=== PATIENT | female | born 1940 | race African-American/Black ===

== ENCOUNTER 2017-02-24 14:26 | Emergency (ER) | payer MEDICARE, OTHER ==
[~2017-02-24] VITALS: Ht 163.8 cm; Wt 77.1 kg
[~2017-02-24 14:26] MED LIST: AMLO5TAB2 PO; DONE10TA7 PO; LISI40TA PO
[2017-02-24] MEDS ORDERED: IV NORMAL SALINE 1000ML BAG 1,000 ML IV ONE (16:00)
[2017-02-24] MEDS ORDERED: ACETAMINOPHEN 325 MG TABLET. PO ONE (16:00)
[2017-02-24] MEDS ORDERED: IPRATRPIUM/ALBUTEROL 0.5/2.5MG 3 ML NEBU. NEB ONE (16:00)
--- NOTE | 2017-02-24 16:03 | RAD ---
Portable chest, 02/24/2017: History: Cough, shortness of breath Comparison is made to a study from 05/09/2014. The heart size and pulmonary vascularity are normal. No pulmonary infiltrates are seen. There is no evidence of pleural fluid. Moderate spurring is present in the spine. IMPRESSION: No acute cardiopulmonary abnormality is detected.
--- NOTE | 2017-02-24 16:12 | EKG ---
[facility] [address] [place] [address] Test Date: 2017-02-24 Test Time: 16:02:45 Pat Name: MARTHA DOUGLAS Department: Room: Gender: F Technology Trainer: : 1940 Requested By: EDUIN POSADA Order Number: [id number] Reading MD: Dyana Benedict Measurements Intervals [place] Rate: 107 P: 60 AR: 146 QRS: -6 QRSD: 74 T: 81 QT: 302 QTc: 408 Interpretive Statements SINUS TACHYCARDIA LEFTWARD AXIS QRS(T) CONTOUR ABNORMALITY CONSIDER ANTEROSEPTAL MYOCARDIAL DAMAGE ST & T ABNORMALITY, CONSIDER HIGH LATERAL ISCHEMIA OR LEFT VENTRICULAR STRAIN Electronically Signed On 02-24-2017 20:06:36 CDT by Dyana Benedict
[2017-02-24 16:51] LABS: BASO % 1 % (0-3); EOS % 0 % (0-3); HEMATOCRIT 31.9 % (36.0-47.0); HEMOGLOBIN 10.3 g/dL (12.0-15.5); LYMPH # 1.4 x10^3/uL (1.0-4.8); LYMPH % 19 % (24-48); MEAN CORPUSCULAR HEMOGLOBIN 25 pg (25-35); MEAN CORPUSCULAR HGB CONC 32 g/dL (31-37); MEAN CORPUSCULAR VOLUME 77 fL (79-100); MONO % 12 % (0-9); NEUT % 69 % (31-73); PLATELET COUNT 335 x10^3/uL (140-400); RED BLOOD COUNT 4.15 x10^6/uL (3.50-5.40); RED CELL DISTRIBUTION WIDTH 14.9 % (11.5-14.5); WHITE BLOOD COUNT 7.7 x10^3/uL (4.0-11.0)
[2017-02-24 17:12] LABS: OBC FLU VALID
[2017-02-24 17:23] LABS: CALCIUM 9.2 mg/dL (8.5-10.1); CREATININE 1.4 mg/dL (0.6-1.0); GFR 44.2; POTASSIUM 3.5 mmol/L (3.5-5.1)
[2017-02-24] MEDS ORDERED: BENZ100C PO (17:47)
[2017-02-24] MEDS ORDERED: PROAIR HFA8.5 GM INH (17:47)
--- NOTE | 2017-02-24 17:47 | PHYS DOC ---
Past Medical History Past Medical History: Diabetes-Type II, Hypertension Past Surgical History: Hysterectomy, Other Additional Past Surgical Histo: cataracts Alcohol Use: None Drug Use: None Adult General Chief Complaint Chief Complaint: COUGH HPI HPI This is a 76-year-old female who presents with cough for the last couple days. The daughter at bedside is concerned that she could be mildly dehydrated based on her skin tone. Patient has had a harsh cough for the last couple days with some mild wheezing. Daughter has been trying [id number] medications without relief. Upon my initial assessment, the patient is able to speak in complete sentences and is in no distress whatsoever. Patient did not cough while I was in the room. The daughter states her blood glucose levels were slightly elevated earlier today in the 300 range and this was also a concern. She does not believe she is doing an adequate job with fluid hydration at home. Review of Systems Review of Systems Constitutional: Denies fever or chills [] Eyes: Denies change in visual acuity, redness, or eye pain [] HENT: Denies nasal congestion or sore throat [] Respiratory: Has cough, denies shortness of breath [] Cardiovascular: No additional information not addressed in HPI [] GI: Denies abdominal pain, nausea, vomiting, bloody stools or diarrhea [] : Denies dysuria or hematuria [] Musculoskeletal: Denies back pain or joint pain [] Integument: Denies rash or skin lesions [] Neurologic: Denies headache, focal weakness or sensory changes [] Endocrine: Denies polyuria or polydipsia [] Current Medications Current Medications Current Medications Medications (Trade) Dose Ordered Sig/[facility] Start Time Stop Time Status Last Admin Dose Admin Acetaminophen (Tylenol) 650 mg 1X ONCE 02/24/17 16:00 02/24/17 16:01 DC 02/24/17 16:42 650 MG Albuterol/ Ipratropium 3 ml 3 ml 1X ONCE 02/24/17 16:00 02/24/17 16:01 DC 02/24/17 17:20 3 ML Sodium Chloride (Iv Sodium Chloride 0.9% 1000ml Bag) 1,000 ml @ 1,000 mls/hr 1X ONCE 02/24/17 16:00 02/24/17 16:59 DC 02/24/17 16:14 1,000 MLS/HR Allergies Allergies Allergies Coded Allergies Type Severity Reaction Last Updated Verified No Known Drug Allergies 05/09/14 No Physical Exam Physical Exam Constitutional: Well developed, well nourished, no acute distress, non-toxic appearance. [] HENT: Normocephalic, atraumatic, bilateral external ears normal, oropharynx moist, no oral exudates, nose normal. [] Eyes: PERRLA, EOMI, conjunctiva normal, no discharge. [] Neck: Normal range of motion, no tenderness, supple, no stridor. [] Cardiovascular:Heart rate regular rhythm, no murmur [] Lungs & Thorax: Bilateral breath sounds clear to auscultation [] Abdomen: Bowel sounds normal, soft, no tenderness, no masses, no pulsatile masses. [] Skin: Warm, dry, no erythema, no rash. [] Back: No tenderness, no CVA tenderness. [] Extremities: No tenderness, no cyanosis, no clubbing, ROM intact, no edema. [] Neurologic: Alert and oriented X 3, normal motor function, normal sensory function, no focal deficits noted. [] Psychologic: Affect normal, judgement normal, mood normal. [] Current Patient Data Vital Signs Vital Signs Date Time Temp Pulse Resp B/P Pulse Ox O2 Delivery O2 Flow Rate FiO2 02/24/17 17:20 98 Room Air 02/24/17 16:47 100.4 99 22 175/79 100.4 Lab Values Laboratory Tests Test 02/24/17 16:28 02/24/17 16:40 Influenza Type A Antigen Negative (NEGATIVE) Influenza Type B Antigen Negative (NEGATIVE) White Blood Count 7.7x10^3/uL (4.0-11.0) Red Blood Count 4.15x10^6/uL (3.50-5.40) Hemoglobin 10.3g/dL (12.0-15.5) L Hematocrit 31.9% (36.0-47.0) L Mean Corpuscular Volume 77fL (79-100) L Mean Corpuscular Hemoglobin 25pg (25-35) Mean Corpuscular Hemoglobin Concent 32g/dL (31-37) Red Cell Distribution Width 14.9% (11.5-14.5) H Platelet Count 335x10^3/uL (140-400) Neutrophils (%) (Auto) 69% (31-73) Lymphocytes (%) (Auto) 19% (24-48) L Monocytes (%) (Auto) 12% (0-9) H Eosinophils (%) (Auto) 0% (0-3) Basophils (%) (Auto) 1% (0-3) Neutrophils # (Auto) 5.3x10^3uL (1.8-7.7) Lymphocytes # (Auto) 1.4x10^3/uL (1.0-4.8) Monocytes # (Auto) 0.9x10^3/uL (0.0-1.1) Eosinophils # (Auto) 0.0x10^3/uL (0.0-0.7) Basophils # (Auto) 0.0x10^3/uL (0.0-0.2) Sodium Level 139mmol/L (136-145) Potassium Level 3.5mmol/L (3.5-5.1) Chloride Level 102mmol/L (98-107) Carbon Dioxide Level 27mmol/L (21-32) Anion Gap 10 (6-14) Blood Urea Nitrogen 17mg/dL (7-20) Creatinine 1.4mg/dL (0.6-1.0) H Estimated GFR (Cockcroft-Gault) 44.2 Glucose Level 123mg/dL (70-99) H Calcium Level 9.2mg/dL (8.5-10.1) Laboratory Tests 02/24/17 16:40 Laboratory Tests 02/24/17 16:40 EKG EKG EKG as interpreted by me shows a tachycardia with a rate of 107 bpm. There are no acute ST findings. There is a leftward axis. This EKG does not meet STEMI criteria. Radiology/Procedures Radiology/Procedures One view of the chest does not reveal an acute cardiopulmonary abnormality. This is as interpreted by the radiologist. Course & Med Decision Making Course & Med Decision Making Pertinent Labs and Imaging studies reviewed. (See chart for details) This 76-year-old female has a workup that is essentially unremarkable. Her blood glucose is not abnormally elevated. Patient was given a half liter of normal saline. Her chest x-ray and EKG were essentially unremarkable. Her tachycardia resolved with fluid bolus. She was also given a DuoNeb treatment. I' ll be discharging her home with a course of Tessalon Perles with albuterol inhaler. The daughter states she'll have her reevaluated by her primary care doctor tomorrow. I also counseled the patient at length that she is to continue to drink plenty of fluids which she admits she is not doing an adequate job. [place] Disclaimer Dragon Disclaimer This electronic medical record was generated, in whole or in part, using a voice recognition dictation system. Departure Departure Impression: Primary Impression: Cough Additional Impression: Bronchitis Disposition: 01 HOME, SELF-CARE Admitting Physician: Other Condition: STABLE Referrals: JOSE ROSS (PCP) Patient Instructions: Cough, Adult, [id number] Additional Instructions: Please continue to use your inhaler and use your tessalon perles as prescribed. Follow up closely with your primary doctor in the next 2-3 days for your cough and congestion. Return to the ER if you develop any worsening of your breathing or develop any chest pain. Scripts Benzonatate (Tessalon Perle)100 Mg [id number] Mg PO TID PRN COUGH #15 CAP Prov:EDUIN POSADA DO 02/24/17 Albuterol Sulfate (Proair Hfa Inhaler)8.5 Gm Hfa.aer.ad1 Puff INH PRN Q6HRS PRN SHORTNESS OF BREATH #1 INHALER Ref 0 Prov:EDUIN POSADA DO 02/24/17 Problem Qualifiers EDUIN POSADA DO Feb 24, 2017 17:47
[2017-02-24 18:19] VITALS: BP 134/70
== END 2017-02-24 18:21 | disposition home or self-care (01) ==
LOC: ER 14:26
DX: J40 Bronchitis, not specified as acute or chronic (principal); I10 Essential (primary) hypertension; E11.9 Type 2 diabetes mellitus without complications; Z90.710 Acquired absence of both cervix and uterus
CPT/HCPCS: 36415; 71010; 80048; 85027; 87804; 93005; 94250; 94640; 96360; 96361; 99285; J7030; J7620

== ENCOUNTER 2018-09-26 06:42 | Emergency (ER) | payer MEDICARE, OTHER ==
[~2018-09-26] VITALS: Ht 162.6 cm; Wt 74.8 kg
[~2018-09-26 06:42] MED LIST changes: +ACET500T68 PO; -AMLO5TAB2 PO; +AMLO5TAB7 PO; +ASPI-482 PO; +ATOR40TA59 PO; +BENZ100C PO; +BENZ200C47 PO; +BRIM5DRO RIGHTEYE; +CLOP75TA57 PO; +DICL100G18 TP; +FAMO1TAB3 PO; +FERR325T14 PO; +INSU100C4 SQ; +INSU100V13 SQ; +LISI-130 PO; +LISI-334 PO; -LISI40TA PO; +OMEP40CA5 PO; +PANT20TA2 PO; +PROAIR HFA8.5 GM INH
[2018-09-26] MEDS ORDERED: IV NORMAL SALINE 1000ML BAG 1,000 ML IV SCH (07:21)
[2018-09-26] MEDS ORDERED: IOHEXOL 300 MG/ML 100ML VIAL. IV ONE (07:30)
[2018-09-26] MEDS ORDERED: ONDANSETRON PF 4 MG/2 ML VIAL. IV PRN (07:30)
[2018-09-26] MEDS ORDERED: methylPREDNISolone SOD SUCC PF 125 MG/2 ML VIAL. IV ONE (07:30)
[2018-09-26] MEDS ORDERED: FAMOTIDINE 20 MG/2 ML VIAL IVP ONE (07:30)
[2018-09-26] MEDS ORDERED: diphenhydrAMINE 50 MG/ML VIAL IVP ONE (07:30)
[2018-09-26 07:41] LABS: BASO # 0.1 x10^3/uL (0.0-0.2); BASO % 1 % (0-3); EOS # 0.2 x10^3/uL (0.0-0.7); EOS % 2 % (0-3); HEMATOCRIT 27.9 % (36.0-47.0); HEMOGLOBIN 9.3 g/dL (12.0-15.5); LYMPH # 1.7 x10^3/uL (1.0-4.8); LYMPH % 18 % (24-48); MEAN CORPUSCULAR HEMOGLOBIN 25 pg (25-35); MEAN CORPUSCULAR HGB CONC 33 g/dL (31-37); MEAN CORPUSCULAR VOLUME 76 fL (79-100); MONO # 0.6 x10^3/uL (0.0-1.1); MONO % 7 % (0-9); NEUT # 6.6 x10^3uL (1.8-7.7); NEUT % 72 % (31-73); PLATELET COUNT 408 x10^3/uL (140-400); RED BLOOD COUNT 3.69 x10^6/uL (3.50-5.40); RED CELL DISTRIBUTION WIDTH 14.8 % (11.5-14.5); WHITE BLOOD COUNT 9.2 x10^3/uL (4.0-11.0)
[2018-09-26 07:44] LABS: CALCIUM 9.2 mg/dL (8.5-10.1); CREATININE 1.5 mg/dL (0.6-1.0); GFR 40.6; POTASSIUM 3.9 mmol/L (3.5-5.1)
[2018-09-26] MEDS ORDERED: CONTRAST GIVEN. MC PRN (07:45)
--- NOTE | 2018-09-26 08:36 | RAD ---
Examination: CT SOFT TISSUE NECK W/CONTRAST History: RIGHT SIDE THROAT SWELLING, DIFFICULT TO SWALLOW. OMNI 300 60ML, REDUCED DOSE
Comparison/Correlation: None Findings: Axial images of the neck were obtained following 60 cc Omnipaque 300 IV. Sagittal and coronal reformatted images were provided. Partially visualized cerebral and cerebellar atrophy noted. Cavernous carotid calcification is notable. Globes and optic nerves are unremarkable. Parotid and submandibular glands are unremarkable. Visualized paranasal sinuses are unremarkable. Mass at the right tonsillar region is present measuring 1.9 cm x 1.5 cm. There are no enlarged cervical lymph nodes. Intimal thickening of the carotid bulb bilaterally is noted with significant calcification involving the left carotid bulb. Mild posterior subluxation of the clivus in relation to the dens is noted. Atlantoaxial joint degenerative remodeling is present. There is marked calcification along the posterior aspect of C4-5 with suspected significant effacement of the spinal cord. Significant spinal canal narrowing at this level is present. Emphysematous involvement of the lung apices noted. Impression: Right tonsillar mass. Correlate with direct visualization. Neoplastic etiology is of concern. Calcification along the posterior margin of the right C4 and C5 vertebral bodies with marked effacement of the thecal sac and likely effacement of the spinal cord as well as the right nerve root. Electronically signed by: Lance Burleson MD (09/26/2018 8:33 AM) [facility]
--- NOTE | 2018-09-26 09:00 | PHYS DOC ---
Past Medical History Past Medical History: Dementia, Diabetes-Type II, High Cholesterol, Hypertension, [place] Past Surgical History: Hysterectomy, Other Additional Past Surgical Histo: cataracts Alcohol Use: None Drug Use: None Adult General Chief Complaint Chief Complaint: DIFFICULTY SWALLOWING HPI HPI Patient is a 78 year old female who presents with difficulty speaking and handling her secretions. Symptoms began last evening and worsened overnight. No acute distress. She does take lisinopril for HTN. No fever or chills. No prior hx of similar symptoms. Patient has not otherwise been ill. She has known hx of DM, HTN, CKD. Review of Systems Review of Systems Constitutional: Denies fever or chills Eyes: Denies change in visual acuity HENT: Denies nasal congestion or sore throat Respiratory: Denies cough or shortness of breath Cardiovascular: No additional information not addressed in HPI GI: Denies abdominal pain, nausea, vomiting : Denies dysuria or hematuria Musculoskeletal: Denies back pain Integument: Denies rash or skin lesions Neurologic: Denies headache Endocrine: Denies polyuria All other systems were reviewed and found to be within normal limits, except as documented in this note. Current Medications Current Medications Current Medications Medications (Trade) Dose Ordered Sig/Cherise Start Time Stop Time Status Last Admin Dose Admin Sodium Chloride 1,000 ml @ 75 mls/hr [id number] 09/26/18 07:21 09/27/18 07:20 09/26/18 07:51 75 MLS/HR Allergies Allergies Allergies Coded Allergies Type Severity Reaction Last Updated Verified Penicillins Allergy Intermediate Rash 02/23/18 Yes Physical Exam Physical Exam Constitutional: Well developed, well nourished, no acute distress, non-toxic appearance HENT: Normocephalic, atraumatic, bilateral external ears normal, oropharynx moist, raspy voice, handling secretions, difficult exam of posterior oral pharynx but some erythema/swelling noted over right more than left, soft tissue edema Eyes: PERRLA, EOMI, conjunctiva normal, no discharge Neck: Normal range of motion, no tenderness, supple, no stridor Cardiovascular:Heart rate regular rhythm, no murmur Lungs & Thorax: Bilateral breath sounds clear to auscultation Abdomen: Bowel sounds normal, soft Skin: Warm, dry, no erythema Extremities: No tenderness, no edema Neurologic: Alert and oriented X 3 Psychologic: Affect normal Current Patient Data Vital Signs Vital Signs Date Time Temp Pulse Resp B/P (MAP) Pulse Ox O2 Delivery O2 Flow Rate FiO2 09/26/18 07:00 98.4 99 12 176/79 (111) 97 Room Air 98.4 Lab Values Laboratory Tests Test 09/26/18 07:25 White Blood Count 9.2 x10^3/uL (4.0-11.0) Red Blood Count 3.69 x10^6/uL (3.50-5.40) Hemoglobin 9.3 g/dL (12.0-15.5) L Hematocrit 27.9 % (36.0-47.0) L Mean Corpuscular Volume 76 fL (79-100) L Mean Corpuscular Hemoglobin 25 pg (25-35) Mean Corpuscular Hemoglobin Concent 33 g/dL (31-37) Red Cell Distribution Width 14.8 % (11.5-14.5) H Platelet Count 408 x10^3/uL (140-400) H Neutrophils (%) (Auto) 72 % (31-73) Lymphocytes (%) (Auto) 18 % (24-48) L Monocytes (%) (Auto) 7 % (0-9) Eosinophils (%) (Auto) 2 % (0-3) Basophils (%) (Auto) 1 % (0-3) Neutrophils # (Auto) 6.6 x10^3uL (1.8-7.7) Lymphocytes # (Auto) 1.7 x10^3/uL (1.0-4.8) Monocytes # (Auto) 0.6 x10^3/uL (0.0-1.1) Eosinophils # (Auto) 0.2 x10^3/uL (0.0-0.7) Basophils # (Auto) 0.1 x10^3/uL (0.0-0.2) Sodium Level 141 mmol/L (136-145) Potassium Level 3.9 mmol/L (3.5-5.1) Chloride Level 103 mmol/L (98-107) Carbon Dioxide Level 26 mmol/L (21-32) Anion Gap 12 (6-14) Blood Urea Nitrogen 22 mg/dL (7-20) H Creatinine 1.5 mg/dL (0.6-1.0) H Estimated GFR (Cockcroft-Gault) 40.6 Glucose Level 217 mg/dL (70-99) H Calcium Level 9.2 mg/dL (8.5-10.1) Laboratory Tests 09/26/18 07:25 Laboratory Tests 09/26/18 07:25 EKG EKG [] Radiology/Procedures Radiology/Procedures Partially visualized cerebral and cerebellar atrophy noted. Cavernous carotid calcification is notable. Globes and optic nerves are unremarkable. Parotid and submandibular glands are unremarkable. Visualized paranasal sinuses are unremarkable. Mass at the right tonsillar region is present measuring 1.9 cm x 1.5 cm. There are no enlarged cervical lymph nodes. Intimal thickening of the carotid bulb bilaterally is noted with significant calcification involving the left carotid bulb. Mild posterior subluxation of the clivus in relation to the dens is noted. Atlantoaxial joint degenerative remodeling is present. There is marked calcification along the posterior aspect of C4-5 with suspected significant effacement of the spinal cord. Significant spinal canal narrowing at this level is present. Emphysematous involvement of the lung apices noted. Impression: Right tonsillar mass. Correlate with direct visualization. Neoplastic etiology is of concern. Calcification along the posterior margin of the right C4 and C5 vertebral bodies with marked effacement of the thecal sac and likely effacement of the spinal cord as well as the right nerve root. Course & Med Decision Making Course & Med Decision Making Pertinent Labs and Imaging studies reviewed. (See chart for details) Patient is seen and examined on arrival to her room. No acute distress and vitals are normal. Exam of posterior oral pharynx is difficult given patient's response to exam. Concern is present for KELLI induced angioedema. No acute distress so no icatibant is ordered. Solumedrol, benadryl, pepcid ordered IV. Will observe closely. CT soft tissue neck ordered. 09:00: CT scan returned with findings concerning for mass in the right peritonsillar mass. Patient continues to have no distress. Neoplasm seems less likely given the acute onset of her symptoms but no definite abscess is seen. Clindamycin ordered. Will discuss with ENT at regarding possible transfer. Creatinine is mildly elevated but review of EMR reveals it to be at baseline. Small IVF bolus ordered. Pt with 97% RA saturation. She was initially given some diphenhydramine in the ER which caused her to be sleepy. While sleeping, SaO2 decreased to low 90's after this so she was placed on 2L per NC, but patient had no oxygen requirement prior to admission. 09:50: Discussed with Dr. Reyes at [facility] who accepts the patient for ER to ER transfer. No ENT available at this facility. Plan of care including transfer is discussed with the patient and her family and they are agreeable. Transfer paperwork completed/signed. Transfer requested from EMS. Patient remains stable with no acute symptoms. Dragon Disclaimer Dragon Disclaimer This electronic medical record was generated, in whole or in part, using a voice recognition dictation system. Departure Departure Referrals: JOSE ROSS (PCP) ADAIR BURKS DO Sep 26, 2018 09:00
[2018-09-26] MEDS ORDERED: IV NORMAL SALINE 500ML BAG 500 ML IV ONE (09:15)
[2018-09-26] MEDS ORDERED: CLINDAMYCIN 600MG PREMIX 50 ML IV ONE (09:15)
[2018-09-26 10:15] VITALS: BP 122/58
== END 2018-09-26 10:31 | disposition short-term general hospital (02) ==
LOC: ER 06:42 → UNDOADMIN 07:25 → 1 WEST ICU 07:25 → ER 10:31
DX: J39.2 Other diseases of pharynx (principal); E11.9 Type 2 diabetes mellitus without complications; E78.00 Pure hypercholesterolemia, unspecified; I10 Essential (primary) hypertension; F03.90 Unspecified dementia, unspecified severity, without behavioral disturbance, psychotic disturbance, mood disturbance, and anxiety; I25.2 Old myocardial infarction; Z88.0 Allergy status to penicillin
CPT/HCPCS: 36415; 70491; 80048; 85025; 96361; 96365; 96375; 99285; J1200; J2405; J2930; J3490; J7030; Q9967

== ENCOUNTER 2019-04-08 21:02 | Inpatient (IN) | payer MEDICARE, OTHER ==
[~2019-04-08] VITALS: Ht 165.1 cm; Wt 80.0 kg
[~2019-04-08 21:02] MED LIST changes: +ALBU2.5V8 INH; +AMLO5TAB10 PO; -AMLO5TAB7 PO; -PROAIR HFA8.5 GM INH
[2019-04-08 21:51] LABS: BASO % 1 % (0-3); EOS # 0.1 x10^3/uL (0.0-0.7); EOS % 2 % (0-3); HEMATOCRIT 31.9 % (36.0-47.0); HEMOGLOBIN 10.2 g/dL (12.0-15.5); LYMPH # 2.4 x10^3/uL (1.0-4.8); LYMPH % 44 % (24-48); MEAN CORPUSCULAR HEMOGLOBIN 24 pg (25-35); MEAN CORPUSCULAR HGB CONC 32 g/dL (31-37); MEAN CORPUSCULAR VOLUME 76 fL (79-100); MONO # 0.4 x10^3/uL (0.0-1.1); MONO % 8 % (0-9); NEUT # 2.6 x10^3uL (1.8-7.7); NEUT % 46 % (31-73); PLATELET COUNT 332 x10^3/uL (140-400); RED BLOOD COUNT 4.18 x10^6/uL (3.50-5.40); RED CELL DISTRIBUTION WIDTH 15.9 % (11.5-14.5); WHITE BLOOD COUNT 5.6 x10^3/uL (4.0-11.0)
--- NOTE | 2019-04-08 21:59 | RAD ---
EXAM: Chest, 2 views; left shoulder, 3 views. HISTORY: Pain. COMPARISON: None. FINDINGS: Chest: 2 views of chest are obtained. There is bilateral lower lobe atelectasis or interstitial infiltrate. There is no consolidation, pleural effusion or pneumothorax. There are few calcified granulomas. There is degenerative change involving both shoulders with associated joint loose bodies. Left shoulder: 3 views left shoulder obtained. There is no fracture, dislocation or subluxation. There are inferior left glenohumeral joint loose bodies. IMPRESSION: 1. Suspected bilateral lower lobe atelectasis or interstitial infiltrate. 2. Left glenohumeral joint loose bodies. No acute osseous finding. Electronically signed by: Joi Mccollum MD (04/08/2019 9:57 PM) [facility]
[2019-04-08] MEDS ORDERED: KETOROLAC 15 MG/ML VIAL. IV ONE (22:00)
[2019-04-08] MEDS ORDERED: IV NORMAL SALINE 1000ML BAG 1,000 ML IV ONE (22:00)
[2019-04-08] MEDS ORDERED: ASPIRIN CHEWABLE 81 MG TABLET. PO ONE (22:00)
--- NOTE | 2019-04-08 22:01 | EKG ---
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
[2019-04-08 22:08] LABS: CALCIUM 9.1 mg/dL (8.5-10.1); CREATININE 1.6 mg/dL (0.6-1.0); GFR 37.6
[2019-04-08 22:14] LABS: ALBUMIN 3.3 g/dL (3.4-5.0); ALBUMIN/GLOBULIN RATIO 0.8 (1.0-1.7); MAGNESIUM 1.7 mg/dL (1.8-2.4); TOTAL BILIRUBIN 0.2 mg/dL (0.2-1.0); TOTAL PROTEIN 7.2 g/dL (6.4-8.2)
--- NOTE | 2019-04-08 22:22 | PHYS DOC ---
Past Medical History Past Medical History: CAD, Dementia, Diabetes-Type II, High Cholesterol, Hypertension, NV Past Medical History Limited due to dementia. Past Surgical History: Hysterectomy, Other Additional Past Surgical Histo: cataracts, Cardiac Stents Past Surgical History Limited due to dementia. Additional Information: Nonsmoker Alcohol Use: None Drug Use: None Social History Limited due to dementia. Adult General Chief Complaint Chief Complaint: BACK PAIN - NO INJURY HPI HPI 79 y/o female with pmh of dementia presents with her daughter with concern for back pain with radiation down left arm which has been bothering patient over the last day. Denies nausea or vomiting. Denies diaphoresis. Daughter use an ice hot patch without any improvement. Patient denies current pain. Daughter reports patient has significant cardiac risk factors of prior CAD requiring stents, DM, HTN and hyperchol. Denies trauma. Denies fever/chills. Denies cough. HPI limited due to dementia. Review of Systems Review of Systems Constitutional: Denies fever or chills [] Respiratory: Denies cough or shortness of breath [] Cardiovascular: Denies chest pain GI: Denies abdominal pain, nausea, vomiting, or diarrhea [] Musculoskeletal: Reports back pain and left arm pain Integument: Denies rash or skin lesions [] Neurologic: Denies headache, focal weakness or sensory changes [] ROS limited due to dementia. Current Medications Current Medications Current Medications Medications (Trade) Dose Ordered Sig/Cherise Start Time Stop Time Status Last Admin Dose Admin Aspirin (Children'S Aspirin) 243 mg 1X ONCE 04/08/19 22:00 04/08/19 22:01 DC 04/08/19 22:22 243 MG Ketorolac Tromethamine (Toradol 15mg Vial) 10 mg 1X ONCE 04/08/19 22:00 04/08/19 22:01 DC 04/08/19 22:23 10 MG Sodium Chloride 1,000 ml @ 1,000 mls/hr 1X ONCE 04/08/19 22:00 04/08/19 22:59 DC 04/08/19 22:23 1,000 MLS/HR Allergies Allergies Allergies Coded Allergies Type Severity Reaction Last Updated Verified lisinopril Allergy Severe ANGIOEDEMA 09/26/18 Yes Penicillins Allergy Intermediate Rash 02/23/18 Yes Physical Exam Physical Exam Constitutional: Well developed, well nourished, no acute distress, non-toxic appearance. [] HENT: Normocephalic, atraumatic, oropharynx moist Eyes: Conjunctiva normal, no discharge. [] Neck: Normal range of motion, no tenderness, supple Cardiovascular: Heart rate normal with regular rhythm Lungs & Thorax: Bilateral breath sounds clear to auscultation [] Abdomen: Bowel sounds normal, soft, no tenderness Skin: Warm, dry, no erythema, no rash. [] Back: No midline or paraspinal tenderness, no CVA tenderness. [] Extremities: No tenderness, ROM intact, reports some pain on ROM about left shoulder Neurologic: Alert and oriented X 2, normal motor function, normal sensory function, no focal deficits noted. [] Psychologic: Affect normal, mood normal. [] Current Patient Data Vital Signs Vital Signs Date Time Temp Pulse Resp B/P (MAP) Pulse Ox O2 Delivery O2 Flow Rate FiO2 04/08/19 22:59 73 161/75 (103) 98 Room Air 04/08/19 21:05 98.6 17 98.6 Lab Values Laboratory Tests Test 04/08/19 21:40 04/08/19 22:28 White Blood Count 5.6 x10^3/uL (4.0-11.0) Red Blood Count 4.18 x10^6/uL (3.50-5.40) Hemoglobin 10.2 g/dL (12.0-15.5) L Hematocrit 31.9 % (36.0-47.0) L Mean Corpuscular Volume 76 fL (79-100) L Mean Corpuscular Hemoglobin 24 pg (25-35) L Mean Corpuscular Hemoglobin Concent 32 g/dL (31-37) Red Cell Distribution Width 15.9 % (11.5-14.5) H Platelet Count 332 x10^3/uL (140-400) Neutrophils (%) (Auto) 46 % (31-73) Lymphocytes (%) (Auto) 44 % (24-48) Monocytes (%) (Auto) 8 % (0-9) Eosinophils (%) (Auto) 2 % (0-3) Basophils (%) (Auto) 1 % (0-3) Neutrophils # (Auto) 2.6 x10^3uL (1.8-7.7) Lymphocytes # (Auto) 2.4 x10^3/uL (1.0-4.8) Monocytes # (Auto) 0.4 x10^3/uL (0.0-1.1) Eosinophils # (Auto) 0.1 x10^3/uL (0.0-0.7) Basophils # (Auto) 0.0 x10^3/uL (0.0-0.2) Sodium Level 141 mmol/L (136-145) Potassium Level 4.0 mmol/L (3.5-5.1) Chloride Level 103 mmol/L (98-107) Carbon Dioxide Level 27 mmol/L (21-32) Anion Gap 11 (6-14) Blood Urea Nitrogen 31 mg/dL (7-20) H Creatinine 1.6 mg/dL (0.6-1.0) H Estimated GFR (Cockcroft-Gault) 37.6 BUN/Creatinine Ratio 19 (6-20) Glucose Level 198 mg/dL (70-99) H Calcium Level 9.1 mg/dL (8.5-10.1) Magnesium Level 1.7 mg/dL (1.8-2.4) L Total Bilirubin 0.2 mg/dL (0.2-1.0) Aspartate Amino Transferase (AST) 11 U/L (15-37) L Alanine Aminotransferase (ALT) 14 U/L (14-59) Alkaline Phosphatase 94 U/L (46-116) Creatine Kinase 92 U/L (26-192) Creatine Kinase MB (Mass) 1.4 ng/mL (0.0-3.6) Creatine Kinase MB Relative Index 1.5 % (0-4) Troponin I Quantitative 0.225 ng/mL (0.000-0.055) PC-Cbx-A-Type Natriuretic Peptide 904 pg/mL (0-449) H Total Protein 7.2 g/dL (6.4-8.2) Albumin 3.3 g/dL (3.4-5.0) L Albumin/Globulin Ratio 0.8 (1.0-1.7) L Lipase 84 U/L (73-393) Urine Collection Type Void Urine Color Yellow Urine Clarity Clear Urine pH 5.0 Urine Specific [place] 1.025 Urine Protein 100 mg/dL (NEG-TRACE) Urine Glucose (UA) >=1000 mg/dL (NEG) Urine Ketones (Stick) Negative mg/dL (NEG) Urine Blood Trace (NEG) Urine Nitrite Negative (NEG) Urine Bilirubin Negative (NEG) Urine Urobilinogen Dipstick 0.2 mg/dL (0.2 mg/dL) Urine Leukocyte Esterase Negative (NEG) Urine RBC Rare /HPF (0-2) Urine WBC Occ /HPF (0-4) Urine Squamous Epithelial Cells Many /LPF Urine Bacteria Few /HPF (0-FEW) Urine Mucus Mod /LPF Laboratory Tests 04/08/19 21:40 Laboratory Tests 04/08/19 21:40 EKG EKG @2113 NSR at 78bpm, NO ST elevation Radiology/Procedures Radiology/Procedures [PROCEDURE: SHOULDER 2+V LEFT AND 2 VIEW CXR EXAM: Chest, 2 views; left shoulder, 3 views. HISTORY: Pain. COMPARISON: None. FINDINGS: Chest: 2 views of chest are obtained. There is bilateral lower lobe atelectasis or interstitial infiltrate. There is no consolidation, pleural effusion or pneumothorax. There are few calcified granulomas. There is degenerative change involving both shoulders with associated joint loose bodies. Left shoulder: 3 views left shoulder obtained. There is no fracture, dislocation or subluxation. There are inferior left glenohumeral joint loose bodies. IMPRESSION: 1. Suspected bilateral lower lobe atelectasis or interstitial infiltrate. 2. Left glenohumeral joint loose bodies. No acute osseous finding. Electronically signed by: Joi Mccollum MD (04/08/2019 9:57 PM) [facility] Course & Med Decision Making Course & Med Decision Making Pertinent Labs and Imaging studies reviewed. (See chart for details) Patient with significant cardiac risk factors presents with back pain/left shoulder pain with radiation down left arm. EKG stable. Labs obtained and posted to chart. Creat elevated which appears baseline per [facility] review. Troponin elevated to 0.22. CXR without acute process. Shoulder XR with findings consistent for arthritis. ASA provided at 243mg as patient had recently taken 81mg at home prior to arrival. Given risk factors and concern despite patient being poor historian, elected to initiate heparin. Patient requiring admission for further evaluation and treatment. Discussed case with Dr. Shepherd (hospitalist) who is in agreement with admission. Discussed findings and plan with patient and family, who acknowledge understanding and agreement. Dragon Disclaimer Dragon Disclaimer This electronic medical record was generated, in whole or in part, using a voice recognition dictation system. Departure Departure Impression: Primary Impression: Shoulder pain Additional Impressions: Elevated troponin Back pain Disposition: ADMITTED INPATIENT Admitting Physician: Other (Luke) Condition: GUARDED Referrals: JOSE ROSS (PCP) The HEART Score for CP Pts HEART Score for Chest Pain: HEART Score for Chest Pain Response (Comments) Value History Slighlty/Non-Suspicious 0 ECG Normal 0 Age > 65 2 Risk Factors >3 Risk Factors or Hx CAD 2 Troponin >3 x Normal Limit 2 Total 6 Risk Factors: Risk Factors: DM, Current or recent (<one month) smoker, HTN, HLP, family history of CAD, obesity. Risk Scores: Score 0 - 3: 2.5% MACE over next 6 weeks - Discharge Home Score 4 - 6: 20.3% MACE over next 6 weeks - Admit for Clinical Observation Score 7 - 10: 72.7% MACE over next 6 weeks - Early Invasive Strategies Critical Care Time Critical care time was 30 minutes which includes time at bedside, spent in discussion of patient's care with specialists and/or family members, with interpretation of laboratory and/or radiological studies and is exclusive of procedures. Problem Qualifiers Primary Impression: Shoulder pain Chronicity: acute Laterality: left Qualified Codes: M25.512 - Pain in left shoulder Additional Impressions: Back pain Back pain location: thoracic back pain Chronicity: acute Back pain laterality: left Qualified Codes: M54.6 - Pain in thoracic spine WESLEY ARTEAGA DO April 08, 2019 22:22
[2019-04-08 22:39] LABS: BILIRUBIN,URINE NEGATIVE (NEG); CLARITY,URINE CLEAR; COLOR,URINE YELLOW; NITRITE,URINE NEGATIVE (NEG); PROTEIN,URINE 100 mg/dL (NEG-TRACE); UROBILINOGEN,URINE 0.2 mg/dL (0.2 mg/dL)
[2019-04-08 22:47] LABS: BACTERIA,URINE FEW /HPF (0-FEW); RBC,URINE RARE /HPF (0-2); SQUAMOUS EPITHELIAL CELL,UR MANY /LPF; WBC,URINE OCC /HPF (0-4)
[2019-04-08] MEDS ORDERED: DEXTROSE 50% 25 GM / 50ML DISP.SYRIN. IV PRN (23:15)
[2019-04-08] MEDS ORDERED: ONDANSETRON PF 4 MG/2 ML VIAL. IV PRN (23:15)
[2019-04-08] MEDS ORDERED: HEPARIN 25,000UTS/500ML PREMIX 500 ML IV PRN (23:15)
[2019-04-08] MEDS ORDERED: fentaNYL PF VIAL 100 MCG/2 ML VIAL IV PRN (23:15)
[2019-04-08] MEDS ORDERED: HEPARIN for IV BOLUS 10,000 UNIT/10 ML VIAL. IV ONE (23:30)
[2019-04-08] MEDS ORDERED: VENTOLIN HFA18 GM INH (23:47)
[2019-04-09] VITALS (7 sets, daily range): BP systolic 127–169; BP diastolic 60–77
--- NOTE | 2019-04-09 00:32 | NUR ---
The patient, MARTHA DOUGLAS V, 79 y/o, F admitted by WILLIAM CASTRO III, DO, was given written information regarding hospital policies, unit procedures and contact persons. Valuables were checked and left with her and her daughter.
[2019-04-09 06:24] LABS: CHOLESTEROL/HDL RATIO 2.2
[2019-04-09] MEDS: INSULIN LISPRO 300 UNITS/3 ML INSULN.PEN. SQ SCH ×4 (08:00→18:10)
[2019-04-09 08:06] LABS: CALCIUM 8.6 mg/dL (8.5-10.1); CREATININE 1.4 mg/dL (0.6-1.0); GFR 43.9; MAGNESIUM 1.7 mg/dL (1.8-2.4); POTASSIUM 3.9 mmol/L (3.5-5.1)
[2019-04-09] MEDS ORDERED: LABETALOL 20 MG/4 ML DISP.SYRIN. IVP PRN (08:45)
--- NOTE | 2019-04-09 08:52 | EKG ---
[facility] [address] [place] [address] Test Date: 2019-04-09 Test Time: 08:39:47 Pat Name: MARTHA DOUGLAS Department: Room: 206 1 Gender: F Electric Meter Technician: AT : 1940 Requested By: WILLIAM CASTRO Order Number: [id number] Reading MD: Bebo Roth MD Measurements Intervals [place] Rate: 70 P: 53 [place]: 200 QRS: 5 QRSD: 76 T: 61 QT: 394 QTc: 428 Interpretive Statements SINUS RHYTHM ST & T ABNORMALITY, CONSIDER ANTEROLATERAL ISCHEMIA OR LEFT VENTRICULAR STRAIN ABNORMAL ECG Electronically Signed On 05-06-2019 14:36:32 CDT by Bebo Roth MD
--- NOTE | 2019-04-09 08:52 | PDOC2 ---
ADIEL PATEL MUSEUM OR ZOO DIRECTOR 04/09/19 0852: CARDIAC CONSULT DATE OF CONSULT Date of Consult DATE: 04/09/19 TIME: 08:24 REASON FOR CONSULT Reason for Consult: Elevated troponin REFERRING PHYSICIAN Referring Physician: Joseluis SOURCE Source: Chart review, Patient HISTORY OF PRESENT ILLNESS HISTORY OF PRESENT ILLNESS This is a pleasant 79 yo AA female admitted for complains of shoulder pain. Pt does have loose bodies to her left shoulder joint per xray. She is a poor historian but pleasant and cooperative with known dementia. I talked to her daughter whom she lives with and told me that her left shoulder discomfort started about 2 days ago describing it as dull and radiating to left arm and left shoulder blade. No chest pain, SOA, nausea. Her appetite has been decreased. There was no recent episodes of fall nor frequent dizziness. Her mobility is limited but does use a walker. Her daughter thought it was the weather change and their PCP advised alternating hot warm and cold compress but her discomfort kept on recurring. Has been having nonproductive cough with past bronchitis about 3 weeks ago. She has been taking her meds regularly. PAST MEDICAL HISTORY Past Medical History Cardiovascular: CAD, HTN, HLP, CENTRAL NERVOUS SYSTEM: Dementia Heme/Onc: Anemia NOS Musculoskeletal: Osteoarthritis Renal/: Urinary Incontinence, CKD3 Endocrine: Diabetes (2) PAST SURGICAL HISTORY Past Surgical History Appendectomy, Cholecystectomy, Cataract Removal, Hysterectomy, PCI/stent FAMILY HISTORY Family History: Coronary Artery Disease SOCIAL HISTORY Smoke: No ALCOHOL: none Drugs: None Lives: with Family CURRENT MEDICATIONS CURRENT MEDICATIONS Current Medications Medications (Trade) Dose Ordered Sig/Cherise Route PRN Reason Start Time Stop Time Status Last Admin Dose Admin Aspirin (Children'S Aspirin) 243 mg 1X ONCE PO 04/08/19 22:00 04/08/19 22:01 DC 04/08/19 22:22 Sodium Chloride 1,000 ml @ 1,000 mls/hr 1X ONCE IV 04/08/19 22:00 04/08/19 22:59 DC 04/08/19 22:23 Ketorolac Tromethamine (Toradol 15mg Vial) 10 mg 1X ONCE IV 04/08/19 22:00 04/08/19 22:01 DC 04/08/19 22:23 Heparin Sodium (Porcine) (Heparin Sodium) 4,000 unit 1X ONCE IV 04/08/19 23:30 04/08/19 23:31 DC 04/08/19 23:39 Heparin Sodium/ Dextrose 500 ml @ 0 mls/hr CONT PRN IV SEE I/O RECORD 04/08/19 23:15 04/08/19 23:40 ALLERGIES ALLERGIES: Coded Allergies: lisinopril (Verified Allergy, Severe, ANGIOEDEMA, 09/26/18) Penicillins (Verified Allergy, Intermediate, Rash, 02/23/18) ROS Review of System 14 point ROS evaluated with pertinent positives noted per HPI PHYSICAL EXAM General: Alert, Cooperative, No acute distress, Other (Oriented x1) HEENT: Atraumatic, Mucous membr. moist/pink Lungs: Clear to auscultation, Normal air movement Heart: Regular rate (SR), Normal S1, Normal S2, Other (2/6 systolic murmur to apex) Abdomen: Soft, No tenderness Extremities: No cyanosis, No edema Skin: No breakdown, No significant lesion Neuro: Normal speech, Sensation intact Psych/Mental Status: Mental status NL, Mood NL MUSCULOSKELETAL: Osteoarthritic changes both hands, Other (no left shoulder ROM limitations) VITALS VITALS Vital Signs Date Time Temp Pulse Resp B/P (MAP) Pulse Ox O2 Delivery O2 Flow Rate FiO2 04/09/19 07:00 97.8 77 18 153/68 (96) 96 Room Air 97.8 LABS Lab: Laboratory Tests Test 04/08/19 21:40 04/08/19 22:28 04/09/19 01:10 04/09/19 05:00 White Blood Count 5.6 x10^3/uL (4.0-11.0) Red Blood Count 4.18 x10^6/uL (3.50-5.40) Hemoglobin 10.2 g/dL (12.0-15.5) Hematocrit 31.9 % (36.0-47.0) Mean Corpuscular Volume 76 fL (79-100) Mean Corpuscular Hemoglobin 24 pg (25-35) Mean Corpuscular Hemoglobin Concent 32 g/dL (31-37) Red Cell Distribution Width 15.9 % (11.5-14.5) Platelet Count 332 x10^3/uL (140-400) Neutrophils (%) (Auto) 46 % (31-73) Lymphocytes (%) (Auto) 44 % (24-48) Monocytes (%) (Auto) 8 % (0-9) Eosinophils (%) (Auto) 2 % (0-3) Basophils (%) (Auto) 1 % (0-3) Neutrophils # (Auto) 2.6 x10^3uL (1.8-7.7) Lymphocytes # (Auto) 2.4 x10^3/uL (1.0-4.8) Monocytes # (Auto) 0.4 x10^3/uL (0.0-1.1) Eosinophils # (Auto) 0.1 x10^3/uL (0.0-0.7) Basophils # (Auto) 0.0 x10^3/uL (0.0-0.2) Sodium Level 141 mmol/L (136-145) 142 mmol/L (136-145) Potassium Level 4.0 mmol/L (3.5-5.1) 3.9 mmol/L (3.5-5.1) Chloride Level 103 mmol/L (98-107) 106 mmol/L (98-107) Carbon Dioxide Level 27 mmol/L (21-32) 25 mmol/L (21-32) Anion Gap 11 (6-14) 11 (6-14) Blood Urea Nitrogen 31 mg/dL (7-20) 26 mg/dL (7-20) Creatinine 1.6 mg/dL (0.6-1.0) 1.4 mg/dL (0.6-1.0) Estimated GFR (Cockcroft-Gault) 37.6 43.9 BUN/Creatinine Ratio 19 (6-20) Glucose Level 198 mg/dL (70-99) 156 mg/dL (70-99) Calcium Level 9.1 mg/dL (8.5-10.1) 8.6 mg/dL (8.5-10.1) Magnesium Level 1.7 mg/dL (1.8-2.4) 1.7 mg/dL (1.8-2.4) Total Bilirubin 0.2 mg/dL (0.2-1.0) Aspartate Amino Transf (AST/SGOT) 11 U/L (15-37) Alanine Aminotransferase (ALT/SGPT) 14 U/L (14-59) Alkaline Phosphatase 94 U/L (46-116) Creatine Kinase 92 U/L (26-192) Creatine Kinase MB (Mass) 1.4 ng/mL (0.0-3.6) Creatine Kinase MB Relative Index 1.5 % (0-4) Troponin I Quantitative 0.225 ng/mL (0.000-0.055) 0.225 ng/mL (0.000-0.055) XH-Axu-X-Type Natriuretic Peptide 904 pg/mL (0-449) Total Protein 7.2 g/dL (6.4-8.2) Albumin 3.3 g/dL (3.4-5.0) Albumin/Globulin Ratio 0.8 (1.0-1.7) Lipase 84 U/L (73-393) Urine Collection Type Void Urine Color Yellow Urine Clarity Clear Urine pH 5.0 Urine Specific [place] 1.025 Urine Protein 100 mg/dL (NEG-TRACE) Urine Glucose (UA) >=1000 mg/dL (NEG) Urine Ketones (Stick) Negative mg/dL (NEG) Urine Blood Trace (NEG) Urine Nitrite Negative (NEG) Urine Bilirubin Negative (NEG) Urine Urobilinogen Dipstick 0.2 mg/dL (0.2 mg/dL) Urine Leukocyte Esterase Negative (NEG) Urine RBC Rare /HPF (0-2) Urine WBC Occ /HPF (0-4) Urine Squamous Epithelial Cells Many /LPF Urine Bacteria Few /HPF (0-FEW) Urine Mucus Mod /LPF Glucose (Fingerstick) 91 mg/dL (70-99) Heparin Anti-Xa Act, Unfractionated 0.92 IU/mL (0.30-0.70) Triglycerides Level 35 mg/dL (0-150) Cholesterol Level 177 mg/dL (0-200) LDL Cholesterol, Calculated 91 mg/dL (0-100) VLDL Cholesterol, Calculated 7 mg/dL (0-40) Non-HDL Cholesterol Calculated 98 mg/dL (0-129) HDL Cholesterol 79 mg/dL (40-60) Cholesterol/HDL Ratio 2.2 Test 04/09/19 06:26 Glucose (Fingerstick) 181 mg/dL (70-99) ECHOCARDIOGRAM ECHOCARDIOGRAM <Conclusion> The left ventricular systolic function is low normal. EF 50%. There is normal LV segmental wall motion. Doppler and Color-flow revealed mild to moderate mitral regurgitation. Doppler and Color Flow revealed mild tricuspid regurgitation. RVSP 31 mm Hg DATE: 04/06/18 1041 STRESS TEST STRESS TEST Conclusion 1. No evidence of stress induced EKG changes. 2. Normal perfusion at stress. Rest images are limited due to artifact 3. Normal EF at > 60% 4. Low risk study DATE: 07/18/17 1609 HEART CATH HEART CATH HEMODYNAMICS: LVEDP 18 mm Hg No gradient on LV to aortic pullback. LEFT VENTRICULOGRAM: Deferred due to renal insufficiency. CORONARY ANGIOGRAPHY: LM is a large caliber vessel with normal angiographic appearance. LAD is a large caliber vessel with normal angiographic appearance that wraps around the apex. D1/D2 are small caliber vessels with normal angiographic appearance. LCx is a moderate caliber non-dominant vessel with a mid 40-50% stenosis after the take of OM1 OM1 is a moderate caliber vessel with a proximal to mid 90% stenosis. RCA is a moderate caliber dominant vessel with a proximal to mid 20% stenosis. RPDA and RPL are small to moderate caliber vessels with normal angiographic appearance. INTERVENTIONAL TECHNIQUE: PCI OF OM1 Based upon the presenting symptoms and angiographic findings and intervention was performed on the vessel. Bivalirudin was used for anticoagulation. Through a 6 [place] EBU 3.5 guide catheter the proximal first obtuse marginal lesion was crossed with a pro-water guidewire. Next, the lesion was angioplastied with a 2.5 x 12 mm balloon. The lesion was then stented with a 3.0 x 18 mm Resolute JULIAN. Final post-PCI angiographyr revealed excellent stent expansion with JOHANNA 3 flow in the vessel. Left ventricular end diastolic pressure was obtained with a pigtail catheter and pullback was performed. All catheter exchanges and advancements were performed over a guidewire. At case completion the right radial sheath was removed and a Terumo radial band was applied with 13 ml of air. The patient tolerated the procedure well and there were no immediate complications. DATE: 02/24/18 1445 ASSESSMENT/PLAN ASSESSMENT/PLAN 1. Left shoulder pain with elevated BP with noted loose bodies to left shoulder per xray. No CP. ROM intact. None further pain overnight 2. Elevated troponin: peaked at 0.225, no significant changes to EKG, possibly type 2 with underlying renal insufficiency and uncontrolled BP 3. HTN: labile initially 4. DM2 5. CKD3: Cr 1.4 within her baseline. 6: HLP 7. CAD: OM1/JULIAN 01/2018 8. Dementia 9. Hx of ACEi allergy with angioedema Recommendations 1. TTE, lipids, repeat EKG. Further recommendation pending the latter 2. ASA/plavix. currently on heparin drip. Discussed plan with daughter 3. Restart home norvasc and statin. Labetolol IV PRN 4. Continue statin and norvasc. ANGELICA SAMPSON MD 04/09/19 1739: CARDIAC CONSULT ASSESSMENT/PLAN ASSESSMENT/PLAN Pt. seen and examined. Agree with above REED MAN note. 79 y.o hypertensive urgency and acute on chronic systolic HF and CKD. Low suspicion for new plaque rupture. Continue heparin for 24 hours and trop stable, will stop in a.m. Continue BP mgmt. Supportive care. ADIEL PATEL APRN April 09, 2019 08:52 ANGELICA SAMPSON MD April 09, 2019 17:39
[2019-04-09] MEDS ORDERED: MAGNESIUM SULFATE 1GM 100 ML IV ONE (09:30)
--- NOTE | 2019-04-09 10:42 | NUR ---
SS following for discharge planning. SS reviewed pt chart. Pt is from home and is currently on room air. No discharge needs noted at this time. SS will continue to follow for discharge planning.
--- NOTE | 2019-04-09 11:15 | PDOC1 ---
History and Physical Date of Admission: Date of Admission DATE: 04/09/19 TIME: 11:10 Chief Complaint: Problems: (1) Bronchitis (2) Cough (3) Vomiting (4) Stable angina pectoris (5) Back pain (6) Shoulder pain (7) Elevated troponin Chief Complain: Left shoulder pain and left arm pain History of Present Illness: HPI: This is an older -Welsh female with dementia. She is very pleasant and has her daughter with her to help Patient she's been having left shoulder pain and left arm pain She has known coronary disease and they're concerned that she could be having angina Indeed her troponin was slightly high at 0.225 in the emergency room Rates her symptoms at 10 out 10 Has some associated shortness of breath and anxiety She had bronchitis a few weeks ago Describes as irritating They tried [id number] Meds for that and work I discussed case with ER physician were going to with patient consult cardioloy Past Medical/Surgical History: PMH/PSH: Past Medical History: CAD, Dementia, Diabetes-Type II, High Cholesterol, Hypertension, ND Past Medical History Limited due to dementia. Past Surgical History: Hysterectomy, Other Additional Past Surgical Histo: cataracts, Cardiac Stents Allergies: Allergies: Coded Allergies: lisinopril (Verified Allergy, Severe, ANGIOEDEMA, 09/26/18) Penicillins (Verified Allergy, Intermediate, Rash, 02/23/18) Family History: Family History: Dementia Social History: Social Hisoty: She does not drink smoke or take drugs Current Medications: Current Medications Current Medications Aspirin (Children'S Aspirin) 243 mg 1X ONCE PO Last administered on 04/08/19at 22:22; Start 04/08/19 at 22:00; Stop 04/08/19 at 22:01; Status DC Sodium Chloride 1,000 ml @ 1,000 mls/hr 1X ONCE IV Last administered on 04/08/19at 22:23; Start 04/08/19 at 22:00; Stop 04/08/19 at 22:59; Status DC Ketorolac Tromethamine (Toradol 15mg Vial) 10 mg 1X ONCE IV Last administered on 04/08/19at 22:23; Start 04/08/19 at 22:00; Stop 04/08/19 at 22:01; Status DC Heparin Sodium (Porcine) (Heparin Sodium) 4,000 unit 1X ONCE IV Last administered on 04/08/19at 23:39; Start 04/08/19 at 23:30; Stop 04/08/19 at 23:31; Status DC Heparin Sodium/ Dextrose 500 ml @ 0 mls/hr CONT PRN IV SEE I/O RECORD Last administered on 04/08/19at 23:40; Start 04/08/19 at 23:15 Ondansetron HCl (Zofran) 4 mg PRN Q8HRS PRN IV NAUSEA/VOMITING 1ST CHOICE; Start 04/08/19 at 23:15; Stop 04/09/19 at 23:14 Fentanyl Citrate (Fentanyl 2ml Vial) 25 mcg PRN Q2HRS PRN IV SEVERE PAIN; Start 04/08/19 at 23:15 Insulin Human Lispro (HumaLOG) 0-5 UNITS TIDWMEALS SQ ; Start 04/09/19 at 08:00 Dextrose (Dextrose 50%-Water Syringe) 12.5 gm PRN Q15MIN PRN IV SEE COMMENTS; Start 04/08/19 at 23:15 Magnesium Sulfate/ Dextrose 100 ml @ 100 mls/hr 1X ONCE IV ; Start 04/09/19 at 09:30; Stop 04/09/19 at 10:29; Status DC Amlodipine Besylate (Norvasc) 10 mg DAILY PO ; Start 04/09/19 at 09:00 Aspirin (Ecotrin) 81 mg DAILY PO ; Start 04/09/19 at 09:00 Atorvastatin Calcium (Lipitor) 40 mg HS PO ; Start 04/09/19 at 21:00 Clopidogrel Bisulfate (Plavix) 75 mg DAILY PO ; Start 04/09/19 at 09:00 Labetalol HCl (Normodyne Iv Push) 20 mg PRN Q2HR PRN IVP HYPERTENSION, SEE COMMENTS; Start 04/09/19 at 08:45 Active Scripts Active Amlodipine Besylate 5 Mg Tablet 10 Mg PO DAILY 60 Days Ferrous Sulfate 325 Mg Tablet 1 Tab PO DAILY Reported Ventolin Hfa Inhaler (Albuterol Sulfate) 18 Gm Hfa.aer.ad 2 Puff INH Q4HRS PRN Protonix (Pantoprazole Sodium) 20 Mg Tablet.dr 40 Mg PO DAILY Plavix (Clopidogrel Bisulfate) 75 Mg Tablet 75 Mg PO DAILY Benzonatate 200 Mg Capsule 1 Cap PO TID PRN Alphagan P (Brimonidine Tartrate) 5 Ml Drops 1 Drop RIGHTEYE BID Voltaren (Diclofenac Sodium) 100 Gm Gel..gram. 100 Gm TP PRN Acetaminophen 500 Mg Tablet 1,000 Mg PO PRN Q6HRS PRN Aspir 81 (Aspirin) 81 Mg Tablet.dr 1 Tab PO DAILY Novolog (Insulin Aspart) 100 Unit/1 Ml Cartridge 16 Unit SQ DAILYWSUP Novolog (Insulin Aspart) 100 Unit/1 Ml Cartridge 16 Unit SQ DAILYWLUN Novolog (Insulin Aspart) 100 Unit/1 Ml Cartridge 20 Unit SQ DAILYWBKFT Levemir (Insulin Detemir) 100 Unit/1 Ml Vial 20 Unit SQ HS Atorvastatin Calcium 40 Mg Tablet 40 Mg PO HS Donepezil Hcl 10 Mg Tablet 10 Mg PO HS ROS: Review of Systems Review of System REVIEW OF SYSTEMS: GENERAL: Denies weakness SKIN: No bruising, hair changes or rashes. EYES: No blurred, double or loss of vision. NOSE AND THROAT: No history of nosebleeds, hoarseness or sore throat. HEART: No history of palpitations, chest pain or shortness of breath on exertion. LUNGS: Denies cough, hemoptysis, wheezing or shortness of breath. GASTROINTESTINAL: Denies changes in appetite, nausea, vomiting, diarrhea or constipation. GENITOURINARY: No history of frequency, urgency, hesitancy or nocturia. NEUROLOGIC: Denies history of numbness, tingling, tremor or weakness. PSYCHIATRIC: No history of panic, anxiety or depression. ENDOCRINE: No history of heat or cold intolerance, polyuria or polydipsia. EXTREMITIES: She complains of left arm pain and left shoulder pain Physical Exam: Vital Signs: Vital Signs Date Time Temp Pulse Resp B/P (MAP) Pulse Ox O2 Delivery O2 Flow Rate FiO2 04/09/19 07:55 Room Air 04/09/19 07:00 97.8 77 18 153/68 (96) 96 97.8 Physcial Exam: GEN.: No apparent distress. Alert and oriented. HEENT: Head is normocephalic, atraumatic NECK: Supple, no JVD LUNGS: Clear to auscultation without rhonchi or wheezing HEART: RRR, S1, S2 present. Peripheral pulses intact ABDOMEN: Soft, nontender. Positive bowel sounds no organomegaly EXTREMITIES: Without any cyanosis, clubbing, or edema. Pedal pulses intact NEUROLOGIC: Normal speech, normal tone. A&O x 3 PSYCHIATRIC: Normal affect, normal mood. Stable SKIN: No ulcerations or rashes VASCULAR: Good capillary refill Labs: Labs: Laboratory Tests Test 04/08/19 21:40 04/08/19 22:28 04/09/19 01:10 04/09/19 05:00 White Blood Count 5.6 x10^3/uL (4.0-11.0) Red Blood Count 4.18 x10^6/uL (3.50-5.40) Hemoglobin 10.2 g/dL (12.0-15.5) Hematocrit 31.9 % (36.0-47.0) Mean Corpuscular Volume 76 fL (79-100) Mean Corpuscular Hemoglobin 24 pg (25-35) Mean Corpuscular Hemoglobin Concent 32 g/dL (31-37) Red Cell Distribution Width 15.9 % (11.5-14.5) Platelet Count 332 x10^3/uL (140-400) Neutrophils (%) (Auto) 46 % (31-73) Lymphocytes (%) (Auto) 44 % (24-48) Monocytes (%) (Auto) 8 % (0-9) Eosinophils (%) (Auto) 2 % (0-3) Basophils (%) (Auto) 1 % (0-3) Neutrophils # (Auto) 2.6 x10^3uL (1.8-7.7) Lymphocytes # (Auto) 2.4 x10^3/uL (1.0-4.8) Monocytes # (Auto) 0.4 x10^3/uL (0.0-1.1) Eosinophils # (Auto) 0.1 x10^3/uL (0.0-0.7) Basophils # (Auto) 0.0 x10^3/uL (0.0-0.2) Sodium Level 141 mmol/L (136-145) 142 mmol/L (136-145) Potassium Level 4.0 mmol/L (3.5-5.1) 3.9 mmol/L (3.5-5.1) Chloride Level 103 mmol/L (98-107) 106 mmol/L (98-107) Carbon Dioxide Level 27 mmol/L (21-32) 25 mmol/L (21-32) Anion Gap 11 (6-14) 11 (6-14) Blood Urea Nitrogen 31 mg/dL (7-20) 26 mg/dL (7-20) Creatinine 1.6 mg/dL (0.6-1.0) 1.4 mg/dL (0.6-1.0) Estimated GFR (Cockcroft-Gault) 37.6 43.9 BUN/Creatinine Ratio 19 (6-20) Glucose Level 198 mg/dL (70-99) 156 mg/dL (70-99) Calcium Level 9.1 mg/dL (8.5-10.1) 8.6 mg/dL (8.5-10.1) Magnesium Level 1.7 mg/dL (1.8-2.4) 1.7 mg/dL (1.8-2.4) Total Bilirubin 0.2 mg/dL (0.2-1.0) Aspartate Amino Transf (AST/SGOT) 11 U/L (15-37) Alanine Aminotransferase (ALT/SGPT) 14 U/L (14-59) Alkaline Phosphatase 94 U/L (46-116) Creatine Kinase 92 U/L (26-192) Creatine Kinase MB (Mass) 1.4 ng/mL (0.0-3.6) Creatine Kinase MB Relative Index 1.5 % (0-4) Troponin I Quantitative 0.225 ng/mL (0.000-0.055) 0.225 ng/mL (0.000-0.055) FE-Orf-K-Type Natriuretic Peptide 904 pg/mL (0-449) Total Protein 7.2 g/dL (6.4-8.2) Albumin 3.3 g/dL (3.4-5.0) Albumin/Globulin Ratio 0.8 (1.0-1.7) Lipase 84 U/L (73-393) Urine Collection Type Void Urine Color Yellow Urine Clarity Clear Urine pH 5.0 Urine Specific [place] 1.025 Urine Protein 100 mg/dL (NEG-TRACE) Urine Glucose (UA) >=1000 mg/dL (NEG) Urine Ketones (Stick) Negative mg/dL (NEG) Urine Blood Trace (NEG) Urine Nitrite Negative (NEG) Urine Bilirubin Negative (NEG) Urine Urobilinogen Dipstick 0.2 mg/dL (0.2 mg/dL) Urine Leukocyte Esterase Negative (NEG) Urine RBC Rare /HPF (0-2) Urine WBC Occ /HPF (0-4) Urine Squamous Epithelial Cells Many /LPF Urine Bacteria Few /HPF (0-FEW) Urine Mucus Mod /LPF Glucose (Fingerstick) 91 mg/dL (70-99) Heparin Anti-Xa Act, Unfractionated 0.92 IU/mL (0.30-0.70) Triglycerides Level 35 mg/dL (0-150) Cholesterol Level 177 mg/dL (0-200) LDL Cholesterol, Calculated 91 mg/dL (0-100) VLDL Cholesterol, Calculated 7 mg/dL (0-40) Non-HDL Cholesterol Calculated 98 mg/dL (0-129) HDL Cholesterol 79 mg/dL (40-60) Cholesterol/HDL Ratio 2.2 Test 04/09/19 06:26 Glucose (Fingerstick) 181 mg/dL (70-99) Laboratory Tests Test 04/08/19 21:40 04/08/19 22:28 04/09/19 01:10 04/09/19 05:00 White Blood Count 5.6 x10^3/uL (4.0-11.0) Red Blood Count 4.18 x10^6/uL (3.50-5.40) Hemoglobin 10.2 g/dL (12.0-15.5) Hematocrit 31.9 % (36.0-47.0) Mean Corpuscular Volume 76 fL (79-100) Mean Corpuscular Hemoglobin 24 pg (25-35) Mean Corpuscular Hemoglobin Concent 32 g/dL (31-37) Red Cell Distribution Width 15.9 % (11.5-14.5) Platelet Count 332 x10^3/uL (140-400) Neutrophils (%) (Auto) 46 % (31-73) Lymphocytes (%) (Auto) 44 % (24-48) Monocytes (%) (Auto) 8 % (0-9) Eosinophils (%) (Auto) 2 % (0-3) Basophils (%) (Auto) 1 % (0-3) Neutrophils # (Auto) 2.6 x10^3uL (1.8-7.7) Lymphocytes # (Auto) 2.4 x10^3/uL (1.0-4.8) Monocytes # (Auto) 0.4 x10^3/uL (0.0-1.1) Eosinophils # (Auto) 0.1 x10^3/uL (0.0-0.7) Basophils # (Auto) 0.0 x10^3/uL (0.0-0.2) Sodium Level 141 mmol/L (136-145) 142 mmol/L (136-145) Potassium Level 4.0 mmol/L (3.5-5.1) 3.9 mmol/L (3.5-5.1) Chloride Level 103 mmol/L (98-107) 106 mmol/L (98-107) Carbon Dioxide Level 27 mmol/L (21-32) 25 mmol/L (21-32) Anion Gap 11 (6-14) 11 (6-14) Blood Urea Nitrogen 31 mg/dL (7-20) 26 mg/dL (7-20) Creatinine 1.6 mg/dL (0.6-1.0) 1.4 mg/dL (0.6-1.0) Estimated GFR (Cockcroft-Gault) 37.6 43.9 BUN/Creatinine Ratio 19 (6-20) Glucose Level 198 mg/dL (70-99) 156 mg/dL (70-99) Calcium Level 9.1 mg/dL (8.5-10.1) 8.6 mg/dL (8.5-10.1) Magnesium Level 1.7 mg/dL (1.8-2.4) 1.7 mg/dL (1.8-2.4) Total Bilirubin 0.2 mg/dL (0.2-1.0) Aspartate Amino Transf (AST/SGOT) 11 U/L (15-37) Alanine Aminotransferase (ALT/SGPT) 14 U/L (14-59) Alkaline Phosphatase 94 U/L (46-116) Creatine Kinase 92 U/L (26-192) Creatine Kinase MB (Mass) 1.4 ng/mL (0.0-3.6) Creatine Kinase MB Relative Index 1.5 % (0-4) Troponin I Quantitative 0.225 ng/mL (0.000-0.055) 0.225 ng/mL (0.000-0.055) OD-Hob-Z-Type Natriuretic Peptide 904 pg/mL (0-449) Total Protein 7.2 g/dL (6.4-8.2) Albumin 3.3 g/dL (3.4-5.0) Albumin/Globulin Ratio 0.8 (1.0-1.7) Lipase 84 U/L (73-393) Urine Collection Type Void Urine Color Yellow Urine Clarity Clear Urine pH 5.0 Urine Specific [place] 1.025 Urine Protein 100 mg/dL (NEG-TRACE) Urine Glucose (UA) >=1000 mg/dL (NEG) Urine Ketones (Stick) Negative mg/dL (NEG) Urine Blood Trace (NEG) Urine Nitrite Negative (NEG) Urine Bilirubin Negative (NEG) Urine Urobilinogen Dipstick 0.2 mg/dL (0.2 mg/dL) Urine Leukocyte Esterase Negative (NEG) Urine RBC Rare /HPF (0-2) Urine WBC Occ /HPF (0-4) Urine Squamous Epithelial Cells Many /LPF Urine Bacteria Few /HPF (0-FEW) Urine Mucus Mod /LPF Glucose (Fingerstick) 91 mg/dL (70-99) Heparin Anti-Xa Act, Unfractionated 0.92 IU/mL (0.30-0.70) Triglycerides Level 35 mg/dL (0-150) Cholesterol Level 177 mg/dL (0-200) LDL Cholesterol, Calculated 91 mg/dL (0-100) VLDL Cholesterol, Calculated 7 mg/dL (0-40) Non-HDL Cholesterol Calculated 98 mg/dL (0-129) HDL Cholesterol 79 mg/dL (40-60) Cholesterol/HDL Ratio 2.2 Test 04/09/19 06:26 Glucose (Fingerstick) 181 mg/dL (70-99) Images: Images IMPRESSION: 1. Suspected bilateral lower lobe atelectasis or interstitial infiltrate. 2. Left glenohumeral joint loose bodies. No acute osseous finding. Assessment/Plan Assessment/Plan Left arm pain and a elderly female with multiple comorbidities including dementia and coronary disease Plan Cardiac monitoring Consul cardiology Serial enzymes Serial EKGs Echocardiogram TSH Lipid profile Consult pulmonary DVT prophylaxis Full code Home meds WILLIAM CASTRO III DO April 09, 2019 11:15
[2019-04-09] MEDS ORDERED: ANTI-COAG MONITOR BY PHARMACY. MC PRN (11:30)
[2019-04-09 11:39] LABS: HEMATOCRIT 31.3 % (36.0-47.0); HEMOGLOBIN 9.6 g/dL (12.0-15.5); RED BLOOD COUNT 4.04 x10^6/uL (3.50-5.40); WHITE BLOOD COUNT 4.7 x10^3/uL (4.0-11.0)
--- NOTE | 2019-04-09 11:46 | CARD ---
MR#: [id number] Date of Study: 04/09/2019 Ordering Physician: ADIEL PATEL, Referring Physician: WILLIAM CASTRO Tech: Lavonne Dutton RDCS APPROVED REPORT EXAM: Two-dimensional and M-mode echocardiogram with Doppler and color Doppler. Other Information Quality : AverageHR: 78bpm Rhythm : NSRTechnically limited study due to body habitus. INDICATION Elev Troponin 2D DIMENSIONS RVDd2.9 (2.9-3.5cm)Left Atrium(2D)3.2 (1.6-4.0cm) IVSd1.3 (0.7-1.1cm)Aortic Root(2D)3.3 (2.0-3.7cm) LVDd5.4 (3.9-5.9cm)LVOT Diameter1.9 (1.8-2.4cm) PWd1.0 (0.7-1.1cm)LVDs4.1 (2.5-4.0cm) FS (%) 25.0 %SV70.7 ml LVEF(%)49.0 (>50%) M-Mode DIMENSIONS Left Atrium(MM)3.36 (2.5-4.0cm)Aortic Root3.16 (2.2-3.7cm) Aortic Valve AoV Peak Scotty.155.9cm/sAoV VTI29.2cm AO Peak GR.9.7mmHgLVOT VTI 19.38cm AO Mean GR.4mmHg Mitral Valve MV E Ytpqmqsz96.5cm/sMV E Peak Gr.107mmHg MV DECEL [id number] A Cqslcwsn048.8cm/s MV E Mean Gr.5mmHgE/A Ratio0.7 MV A [id number] Planimetry1.80cm2 LEFT VENTRICLE The Left Ventricle is borderline dilated. Proximal septal thickening is noted. Left ventricle systoli c function is mildly diminished. EF 40% There is global hypokinesis of the left ventricle. Septal mot ion suggestive of conduction defect. Transmitral Doppler flow pattern is Grade I-abnormal relaxation pattern. RIGHT VENTRICLE The right ventricle is normal size. There is normal right ventricular wall thickness. The right ventr icular systolic function is normal. ATRIA The left atrium size is normal. The right atrium size is normal. The interatrial septum is intact wit h no evidence for an atrial septal defect or patent foramen ovale as noted on 2-D or Doppler imaging. AORTIC VALVE The aortic valve is normal in structure and function. The aortic valve is trileaflet. Doppler and Col or Flow revealed trace aortic regurgitation. There is no significant aortic valvular stenosis. There is no aortic valvular vegetation. MITRAL VALVE Mitral annular calcification is mild. There is no evidence of mitral valve prolapse. There is no mitr al valve stenosis. Doppler and Color-flow revealed mild mitral regurgitation. TRICUSPID VALVE The tricuspid valve is normal in structure and function. Doppler and Color Flow revealed trace tricus pid regurgitation. There is no tricuspid valve prolapse or vegetation. There is no tricuspid valve st enosis. PULMONIC VALVE The pulmonic valve is not well visualized. GREAT VESSELS The aortic root is normal in size. The ascending aorta is normal in size. The IVC is normal in size a nd collapses >50% with inspiration. PERICARDIAL EFFUSION There is no evidence of significant pericardial effusion. Critical Notification Critical Value: No <Conclusion> Left ventricle systolic function is mildly diminished. EF 40% There is global hypokinesis of the left ventricle. Septal motion suggestive of conduction defect. Signed by : Bebo Roth, Electronically Approved : 04/09/2019 11:45:48
[2019-04-09] MEDS: CLOPIDOGREL BISULFATE 75 MG TABLET PO SCH (12:26)
[2019-04-09] MEDS: amLODIPine BESYLATE 5 MG TABLET PO SCH (12:27)
[2019-04-09] MEDS: ASPIRIN ENTERIC COATED 81 MG TABLET.DR. PO SCH (12:27)
[2019-04-09] MEDS ORDERED: DICLOFENAC SODIUM 1% TOPICAL GEL 100GM TUBE. TP PRN (17:30)
[2019-04-09] MEDS ORDERED: ALBUTEROL SULFATE 2.5 MG/3 ML NEBU. NEB PRN (17:45)
[2019-04-09] MEDS ORDERED: ACETAMINOPHEN 500 MG TABLET PO PRN (17:45)
--- NOTE | 2019-04-09 19:08 | PDOC ---
PULMONARY PROGRESS NOTES Vitals Vital Signs Date Time Temp Pulse Resp B/P (MAP) Pulse Ox O2 Delivery O2 Flow Rate FiO2 04/09/19 15:18 97.9 74 18 138/60 (86) 95 Room Air 97.9 Lungs: Clear Labs Laboratory Tests Test 04/08/19 21:40 04/08/19 22:28 04/09/19 01:10 04/09/19 05:00 White Blood Count 5.6 x10^3/uL (4.0-11.0) Red Blood Count 4.18 x10^6/uL (3.50-5.40) Hemoglobin 10.2 g/dL (12.0-15.5) Hematocrit 31.9 % (36.0-47.0) Mean Corpuscular Volume 76 fL (79-100) Mean Corpuscular Hemoglobin 24 pg (25-35) Mean Corpuscular Hemoglobin Concent 32 g/dL (31-37) Red Cell Distribution Width 15.9 % (11.5-14.5) Platelet Count 332 x10^3/uL (140-400) Neutrophils (%) (Auto) 46 % (31-73) Lymphocytes (%) (Auto) 44 % (24-48) Monocytes (%) (Auto) 8 % (0-9) Eosinophils (%) (Auto) 2 % (0-3) Basophils (%) (Auto) 1 % (0-3) Neutrophils # (Auto) 2.6 x10^3uL (1.8-7.7) Lymphocytes # (Auto) 2.4 x10^3/uL (1.0-4.8) Monocytes # (Auto) 0.4 x10^3/uL (0.0-1.1) Eosinophils # (Auto) 0.1 x10^3/uL (0.0-0.7) Basophils # (Auto) 0.0 x10^3/uL (0.0-0.2) Sodium Level 141 mmol/L (136-145) 142 mmol/L (136-145) Potassium Level 4.0 mmol/L (3.5-5.1) 3.9 mmol/L (3.5-5.1) Chloride Level 103 mmol/L (98-107) 106 mmol/L (98-107) Carbon Dioxide Level 27 mmol/L (21-32) 25 mmol/L (21-32) Anion Gap 11 (6-14) 11 (6-14) Blood Urea Nitrogen 31 mg/dL (7-20) 26 mg/dL (7-20) Creatinine 1.6 mg/dL (0.6-1.0) 1.4 mg/dL (0.6-1.0) Estimated GFR (Cockcroft-Gault) 37.6 43.9 BUN/Creatinine Ratio 19 (6-20) Glucose Level 198 mg/dL (70-99) 156 mg/dL (70-99) Calcium Level 9.1 mg/dL (8.5-10.1) 8.6 mg/dL (8.5-10.1) Magnesium Level 1.7 mg/dL (1.8-2.4) 1.7 mg/dL (1.8-2.4) Total Bilirubin 0.2 mg/dL (0.2-1.0) Aspartate Amino Transf (AST/SGOT) 11 U/L (15-37) Alanine Aminotransferase (ALT/SGPT) 14 U/L (14-59) Alkaline Phosphatase 94 U/L (46-116) Creatine Kinase 92 U/L (26-192) Creatine Kinase MB (Mass) 1.4 ng/mL (0.0-3.6) Creatine Kinase MB Relative Index 1.5 % (0-4) Troponin I Quantitative 0.225 ng/mL (0.000-0.055) 0.225 ng/mL (0.000-0.055) AQ-Awf-I-Type Natriuretic Peptide 904 pg/mL (0-449) Total Protein 7.2 g/dL (6.4-8.2) Albumin 3.3 g/dL (3.4-5.0) Albumin/Globulin Ratio 0.8 (1.0-1.7) Lipase 84 U/L (73-393) Urine Collection Type Void Urine Color Yellow Urine Clarity Clear Urine pH 5.0 Urine Specific [place] 1.025 Urine Protein 100 mg/dL (NEG-TRACE) Urine Glucose (UA) >=1000 mg/dL (NEG) Urine Ketones (Stick) Negative mg/dL (NEG) Urine Blood Trace (NEG) Urine Nitrite Negative (NEG) Urine Bilirubin Negative (NEG) Urine Urobilinogen Dipstick 0.2 mg/dL (0.2 mg/dL) Urine Leukocyte Esterase Negative (NEG) Urine RBC Rare /HPF (0-2) Urine WBC Occ /HPF (0-4) Urine Squamous Epithelial Cells Many /LPF Urine Bacteria Few /HPF (0-FEW) Urine Mucus Mod /LPF Glucose (Fingerstick) 91 mg/dL (70-99) Heparin Anti-Xa Act, Unfractionated 0.92 IU/mL (0.30-0.70) Triglycerides Level 35 mg/dL (0-150) Cholesterol Level 177 mg/dL (0-200) LDL Cholesterol, Calculated 91 mg/dL (0-100) VLDL Cholesterol, Calculated 7 mg/dL (0-40) Non-HDL Cholesterol Calculated 98 mg/dL (0-129) HDL Cholesterol 79 mg/dL (40-60) Cholesterol/HDL Ratio 2.2 Test 04/09/19 06:26 04/09/19 11:10 04/09/19 11:50 04/09/19 17:05 Glucose (Fingerstick) 181 mg/dL (70-99) 229 mg/dL (70-99) White Blood Count 4.7 x10^3/uL (4.0-11.0) Red Blood Count 4.04 x10^6/uL (3.50-5.40) Hemoglobin 9.6 g/dL (12.0-15.5) Hematocrit 31.3 % (36.0-47.0) Mean Corpuscular Volume 78 fL (79-100) Mean Corpuscular Hemoglobin 24 pg (25-35) Mean Corpuscular Hemoglobin Concent 31 g/dL (31-37) Red Cell Distribution Width 16.0 % (11.5-14.5) Platelet Count 279 x10^3/uL (140-400) Heparin Anti-Xa Act, Unfractionated 0.53 IU/mL (0.30-0.70) 0.47 IU/mL (0.30-0.70) Troponin I Quantitative 0.231 ng/mL (0.000-0.055) Test 04/09/19 17:16 Glucose (Fingerstick) 281 mg/dL (70-99) Laboratory Tests Test 04/08/19 21:40 04/08/19 22:28 04/09/19 01:10 04/09/19 05:00 White Blood Count 5.6 x10^3/uL (4.0-11.0) Red Blood Count 4.18 x10^6/uL (3.50-5.40) Hemoglobin 10.2 g/dL (12.0-15.5) Hematocrit 31.9 % (36.0-47.0) Mean Corpuscular Volume 76 fL (79-100) Mean Corpuscular Hemoglobin 24 pg (25-35) Mean Corpuscular Hemoglobin Concent 32 g/dL (31-37) Red Cell Distribution Width 15.9 % (11.5-14.5) Platelet Count 332 x10^3/uL (140-400) Neutrophils (%) (Auto) 46 % (31-73) Lymphocytes (%) (Auto) 44 % (24-48) Monocytes (%) (Auto) 8 % (0-9) Eosinophils (%) (Auto) 2 % (0-3) Basophils (%) (Auto) 1 % (0-3) Neutrophils # (Auto) 2.6 x10^3uL (1.8-7.7) Lymphocytes # (Auto) 2.4 x10^3/uL (1.0-4.8) Monocytes # (Auto) 0.4 x10^3/uL (0.0-1.1) Eosinophils # (Auto) 0.1 x10^3/uL (0.0-0.7) Basophils # (Auto) 0.0 x10^3/uL (0.0-0.2) Sodium Level 141 mmol/L (136-145) 142 mmol/L (136-145) Potassium Level 4.0 mmol/L (3.5-5.1) 3.9 mmol/L (3.5-5.1) Chloride Level 103 mmol/L (98-107) 106 mmol/L (98-107) Carbon Dioxide Level 27 mmol/L (21-32) 25 mmol/L (21-32) Anion Gap 11 (6-14) 11 (6-14) Blood Urea Nitrogen 31 mg/dL (7-20) 26 mg/dL (7-20) Creatinine 1.6 mg/dL (0.6-1.0) 1.4 mg/dL (0.6-1.0) Estimated GFR (Cockcroft-Gault) 37.6 43.9 BUN/Creatinine Ratio 19 (6-20) Glucose Level 198 mg/dL (70-99) 156 mg/dL (70-99) Calcium Level 9.1 mg/dL (8.5-10.1) 8.6 mg/dL (8.5-10.1) Magnesium Level 1.7 mg/dL (1.8-2.4) 1.7 mg/dL (1.8-2.4) Total Bilirubin 0.2 mg/dL (0.2-1.0) Aspartate Amino Transf (AST/SGOT) 11 U/L (15-37) Alanine Aminotransferase (ALT/SGPT) 14 U/L (14-59) Alkaline Phosphatase 94 U/L (46-116) Creatine Kinase 92 U/L (26-192) Creatine Kinase MB (Mass) 1.4 ng/mL (0.0-3.6) Creatine Kinase MB Relative Index 1.5 % (0-4) Troponin I Quantitative 0.225 ng/mL (0.000-0.055) 0.225 ng/mL (0.000-0.055) XP-Ebo-U-Type Natriuretic Peptide 904 pg/mL (0-449) Total Protein 7.2 g/dL (6.4-8.2) Albumin 3.3 g/dL (3.4-5.0) Albumin/Globulin Ratio 0.8 (1.0-1.7) Lipase 84 U/L (73-393) Urine Collection Type Void Urine Color Yellow Urine Clarity Clear Urine pH 5.0 Urine Specific [place] 1.025 Urine Protein 100 mg/dL (NEG-TRACE) Urine Glucose (UA) >=1000 mg/dL (NEG) Urine Ketones (Stick) Negative mg/dL (NEG) Urine Blood Trace (NEG) Urine Nitrite Negative (NEG) Urine Bilirubin Negative (NEG) Urine Urobilinogen Dipstick 0.2 mg/dL (0.2 mg/dL) Urine Leukocyte Esterase Negative (NEG) Urine RBC Rare /HPF (0-2) Urine WBC Occ /HPF (0-4) Urine Squamous Epithelial Cells Many /LPF Urine Bacteria Few /HPF (0-FEW) Urine Mucus Mod /LPF Glucose (Fingerstick) 91 mg/dL (70-99) Heparin Anti-Xa Act, Unfractionated 0.92 IU/mL (0.30-0.70) Triglycerides Level 35 mg/dL (0-150) Cholesterol Level 177 mg/dL (0-200) LDL Cholesterol, Calculated 91 mg/dL (0-100) VLDL Cholesterol, Calculated 7 mg/dL (0-40) Non-HDL Cholesterol Calculated 98 mg/dL (0-129) HDL Cholesterol 79 mg/dL (40-60) Cholesterol/HDL Ratio 2.2 Test 04/09/19 06:26 04/09/19 11:10 04/09/19 11:50 04/09/19 17:05 Glucose (Fingerstick) 181 mg/dL (70-99) 229 mg/dL (70-99) White Blood Count 4.7 x10^3/uL (4.0-11.0) Red Blood Count 4.04 x10^6/uL (3.50-5.40) Hemoglobin 9.6 g/dL (12.0-15.5) Hematocrit 31.3 % (36.0-47.0) Mean Corpuscular Volume 78 fL (79-100) Mean Corpuscular Hemoglobin 24 pg (25-35) Mean Corpuscular Hemoglobin Concent 31 g/dL (31-37) Red Cell Distribution Width 16.0 % (11.5-14.5) Platelet Count 279 x10^3/uL (140-400) Heparin Anti-Xa Act, Unfractionated 0.53 IU/mL (0.30-0.70) 0.47 IU/mL (0.30-0.70) Troponin I Quantitative 0.231 ng/mL (0.000-0.055) Test 04/09/19 17:16 Glucose (Fingerstick) 281 mg/dL (70-99) Medications Active Scripts Medications Dose Route/Sig Max Daily Dose Days Date Category Ventolin Hfa Inhaler (Albuterol Sulfate) 18 Gm Hfa.aer.ad 2 Puff INH Q4HRS PRN 04/08/19 Reported Amlodipine Besylate 5 Mg Tablet 10 Mg PO DAILY 60 04/07/18 Rx Protonix (Pantoprazole Sodium) 20 Mg Tablet.dr 40 Mg PO DAILY 02/24/18 Reported Plavix (Clopidogrel Bisulfate) 75 Mg Tablet 75 Mg PO DAILY 02/24/18 Reported Benzonatate 200 Mg Capsule 1 Cap PO TID PRN 02/23/18 Reported Alphagan P (Brimonidine Tartrate) 5 Ml Drops 1 Drop RIGHTEYE BID 02/23/18 Reported Voltaren (Diclofenac Sodium) 100 Gm Gel..gram. 100 Gm TP PRN 02/23/18 Reported Ferrous Sulfate 325 Mg Tablet 1 Tab PO DAILY 07/19/17 Rx Acetaminophen 500 Mg Tablet 1,000 Mg PO PRN Q6HRS PRN 07/18/17 Reported Aspir 81 (Aspirin) 81 Mg Tablet.dr 1 Tab PO DAILY 07/18/17 Reported Novolog (Insulin Aspart) 100 Unit/1 Ml Cartridge 16 Unit SQ [id number] 07/18/17 Reported Novolog (Insulin Aspart) 100 Unit/1 Ml Cartridge 16 Unit SQ [id number] 07/18/17 Reported Novolog (Insulin Aspart) 100 Unit/1 Ml Cartridge 20 Unit SQ [id number] 07/18/17 Reported Levemir (Insulin Detemir) 100 Unit/1 Ml Vial 20 Unit SQ HS 07/18/17 Reported Atorvastatin Calcium 40 Mg Tablet 40 Mg PO HS 07/18/17 Reported Donepezil Hcl 10 Mg Tablet 10 Mg PO HS 05/09/14 Reported Impression . note dictated abnormal cx compatible with chf thanks JULIETTE MANN MD April 09, 2019 19:08
--- NOTE | 2019-04-09 19:15 | NUR ---
Follow-up appointment with Dr. Roth on June 04 2019 at 0845. Patient was given appointment card.
[2019-04-09] MEDS ORDERED: DONEPEZIL HCL 10 MG TABLET. PO SCH (21:00)
[2019-04-09] MEDS ORDERED: BENZONATATE 100 MG CAPSULE. PO PRN (21:00)
[2019-04-09] MEDS: ATORVASTATIN CALCIUM 40 MG TABLET. PO SCH (21:30)
[2019-04-09] MEDS: BRIMONIDINE 0.2% OPHTH SOLUTION 5ML BOTTLE. OD SCH (21:30)
[2019-04-09] MEDS: INSULIN GLARGINE 300 UNITS/3 ML INSULN.PEN. SQ SCH (21:36)
[2019-04-10 03:15] VITALS: BP 165/75
[2019-04-10 07:00] VITALS: BP 146/71
[2019-04-10] MEDS: INSULIN LISPRO 300 UNITS/3 ML INSULN.PEN. SQ SCH ×4 (08:00→17:49)
[2019-04-10] MEDS ORDERED: INSULIN GLARGINE 300 UNITS/3 ML INSULN.PEN. SQ SCH ×3 (08:00→21:00)
[2019-04-10] MEDS: FERROUS SULFATE 325 MG TABLET. PO SCH (08:27)
[2019-04-10] MEDS: PANTOPRAZOLE 40 MG TABLET.DR. PO SCH (08:27)
[2019-04-10] MEDS: CLOPIDOGREL BISULFATE 75 MG TABLET PO SCH (08:27)
[2019-04-10] MEDS: ASPIRIN ENTERIC COATED 81 MG TABLET.DR. PO SCH (08:27)
[2019-04-10] MEDS: amLODIPine BESYLATE 5 MG TABLET PO SCH (08:28)
[2019-04-10] MEDS: BRIMONIDINE 0.2% OPHTH SOLUTION 5ML BOTTLE. OD SCH ×2 (08:30→21:04)
--- NOTE | 2019-04-10 10:36 | CONS ---
DATE OF CONSULTATION: 04/09/2019 ATTENDING PHYSICIAN: Gaurang Langley DO. CONSULTING PHYSICIAN: Juliette Mann M.D. REASON FOR CONSULTATION: The patient is seen in Pulmonary consultation at the request of Dr. Langley for abnormal chest x-ray. HISTORY OF PRESENT ILLNESS: The patient is a 79-year-old that presented because she was having some issues with complaints of shoulder pain. She lives with her daughter. She is somewhat of a poor historian and has some mild dementia. According to her daughter, she had cold-like symptoms 3 weeks ago. Her daughter did notice some increasing shortness of breath over the last 2-3 weeks. The last time she walked to the mailbox was approximately 2 weeks ago. No fever, chills or night sweats. A chest x-ray was reviewed. There were bilateral lower lobe interstitial infiltrates. Echocardiogram revealed an ejection fraction of 40%. The patient has never smoked. There is no history of asthma. PAST MEDICAL HISTORY: Coronary artery disease, hypertension, hyperlipidemia, dementia, chronic kidney disease, anemia, osteoarthritis and diabetes. PAST SURGICAL HISTORY: Status post appendectomy, cholecystectomy, cataract removal, hysterectomy, PCI and stents in the past. FAMILY HISTORY: Coronary artery disease. No lung disorders. REVIEW OF SYSTEMS: As indicated above; otherwise, other systems could not be adequately reviewed as the patient is demented. MEDICATIONS: Current medication list was reviewed. PHYSICAL EXAMINATION: GENERAL: On examination, the patient was in no respiratory distress. VITAL SIGNS: Stable. O2 saturation was greater than 92% currently on room air. HEENT: Eyes, the sclerae were nonicteric. NECK: Jugular venous distention was not elevated. No lymphadenopathy. CHEST: Full expansion. LUNGS: Crackles in the bases. No wheezes. CARDIOVASCULAR EXAMINATION: Regular rate and rhythm with S1, S2. No S3. ABDOMEN: Soft, nontender and nondistended. EXTREMITIES: No clubbing, cyanosis or edema. NEUROLOGIC: The patient was awake, alert, following commands. A detailed neuro exam was not performed. LABORATORY DATA: Labs were reviewed. White count was normal. Hemoglobin and hematocrit were noted. Electrolytes were noted. Troponin is elevated. BNP was elevated. IMPRESSION: 1. Abnormal x-ray, compatible with interstitial edema. 2. Qupiz-hm-hjckyil systolic heart failure. 3. Elevated troponin. 4. Cardiomyopathy with known coronary artery disease and previous stent placement. 5. Chronic kidney disease. PLAN: 1. Recommend to continue diuresis. 2. Follow chest x-ray and clinical course. 3. Follow Cardiology input. 4. Monitor creatinine. I do appreciate the privilege in sharing in the patient's care. JULIETTE MANN MD DR: CLAU/rashmi JOB#: [id number] / [id number]
[2019-04-10 11:00] VITALS: BP 123/58
--- NOTE | 2019-04-10 11:11 | PDOC ---
CARDIOLOGY PROGRESS NOTE SUBJECTIVE: No acute events overnight. OBJECTIVE: Vital SIgns: Vital Signs Date Time Temp Pulse Resp B/P (MAP) Pulse Ox O2 Delivery O2 Flow Rate FiO2 04/10/19 08:28 80 165/75 04/10/19 07:00 97.6 18 95 Room Air 97.6 I & O Intake and Output 04/10/19 06:59 Intake Total 1360 ml Balance 1360 ml Intake Oral 1360 ml # Voids 2 Objective: GEN.: No apparent distress. Alert and oriented. HEENT: Head is normocephalic, atraumatic NECK: Supple. LUNGS: Clear to auscultation. HEART: RRR, S1, S2 present. Peripheral pulses intact ABDOMEN: Soft, nontender. Positive bowel sounds. EXTREMITIES: Without any cyanosis. NEUROLOGIC: Normal speech, normal tone PSYCHIATRIC: Normal affect, normal mood. SKIN: No ulcerations CURRENT MEDICATIONS: amlodipine, asa, plavix. DIAGNOSTIC TESTING: Trop minimally elevated at 0.2 Echo with EF of 40%. ASSESSMENT: 1. Acute on chronic systolic and diastolic HF 2. Elevated troponin likely due to uncontrolled HTN 3. Stage 2 HTN 4. CKD 5. Anemia of chronic disease. PLAN: 1. Started toprol XL, low dose hydralazine and imdur. Continue amlodipine, asa, plavix and statin therapy. 2. Hold diuresis today. 3. I had a long discussion with patient and daughter regarding conservative eric hardeep aggressive measures. Will defer cardiac cath. Plan for medical optimization of heart failure and BP and outpt f/u. Thanks. Will follow along. Discussed with Dr. Strickland. ANGELICA SAMPSON MD April 10, 2019 11:11
--- NOTE | 2019-04-10 11:19 | PDOC ---
[facility] PROGRESS NOTE Chief Complaint Chief Complaint Left arm pain Mildly elevated troponin- likely renal cause CAD Hypercholesterolemia HTN Prior WI s/p cardiac stenting DM II History of Present Illness History of Present Illness Patient seen and examined Patient was well appearing and had a pleasant disposition Discussed with daughter Discussed with Nurse Echo revealed EF of 40%, and global L ventricular hypokinesis suggestive of conduction defect Vitals Vitals Vital Signs Date Time Temp Pulse Resp B/P (MAP) Pulse Ox O2 Delivery O2 Flow Rate FiO2 04/10/19 08:28 80 165/75 04/10/19 07:00 97.6 18 95 Room Air 97.6 Physical Exam General: Alert, Cooperative, No acute distress, Other (Oriented x1) Heart: Regular rate (SR), Normal S1, Normal S2, Other (2/6 systolic murmur to apex) Lungs: Clear Abdomen: Soft, No tenderness Extremities: No cyanosis, No edema Skin: No breakdown, No significant lesion Labs LABS Laboratory Tests Test 04/09/19 11:50 04/09/19 17:05 04/09/19 17:16 04/09/19 20:59 Glucose (Fingerstick) 229 mg/dL (70-99) 281 mg/dL (70-99) 247 mg/dL (70-99) Heparin Anti-Xa Act, Unfractionated 0.47 IU/mL (0.30-0.70) Test 04/10/19 07:44 Glucose (Fingerstick) 128 mg/dL (70-99) Review of Systems Review of Systems Patient denies SOA Patient denies abdominal pain Assessment and Plan Assessmemt and Plan Problems Medical Problems: (1) Back pain Status: Acute (2) Elevated troponin Status: Acute (3) Shoulder pain Status: Acute Assessment: Left arm pain Mildly elevated troponin- likely renal cause CAD Hypercholesterolemia HTN Prior WI s/p cardiac stenting DM II Plan: Cardiac monitoring Discontinue Donepezil per daughter request Continue to Diurese PT/OT Home meds Labs DVT ppx Full code Home walker and home shower chair Hope to discharge soon if subspecialists agree Comment Review of Relevant I have reviewed the following items all (where applicable) has been applied. Labs Laboratory Tests Test 04/08/19 21:40 04/08/19 22:28 04/09/19 01:10 04/09/19 05:00 White Blood Count 5.6 x10^3/uL (4.0-11.0) Red Blood Count 4.18 x10^6/uL (3.50-5.40) Hemoglobin 10.2 g/dL (12.0-15.5) Hematocrit 31.9 % (36.0-47.0) Mean Corpuscular Volume 76 fL (79-100) Mean Corpuscular Hemoglobin 24 pg (25-35) Mean Corpuscular Hemoglobin Concent 32 g/dL (31-37) Red Cell Distribution Width 15.9 % (11.5-14.5) Platelet Count 332 x10^3/uL (140-400) Neutrophils (%) (Auto) 46 % (31-73) Lymphocytes (%) (Auto) 44 % (24-48) Monocytes (%) (Auto) 8 % (0-9) Eosinophils (%) (Auto) 2 % (0-3) Basophils (%) (Auto) 1 % (0-3) Neutrophils # (Auto) 2.6 x10^3uL (1.8-7.7) Lymphocytes # (Auto) 2.4 x10^3/uL (1.0-4.8) Monocytes # (Auto) 0.4 x10^3/uL (0.0-1.1) Eosinophils # (Auto) 0.1 x10^3/uL (0.0-0.7) Basophils # (Auto) 0.0 x10^3/uL (0.0-0.2) Sodium Level 141 mmol/L (136-145) 142 mmol/L (136-145) Potassium Level 4.0 mmol/L (3.5-5.1) 3.9 mmol/L (3.5-5.1) Chloride Level 103 mmol/L (98-107) 106 mmol/L (98-107) Carbon Dioxide Level 27 mmol/L (21-32) 25 mmol/L (21-32) Anion Gap 11 (6-14) 11 (6-14) Blood Urea Nitrogen 31 mg/dL (7-20) 26 mg/dL (7-20) Creatinine 1.6 mg/dL (0.6-1.0) 1.4 mg/dL (0.6-1.0) Estimated GFR (Cockcroft-Gault) 37.6 43.9 BUN/Creatinine Ratio 19 (6-20) Glucose Level 198 mg/dL (70-99) 156 mg/dL (70-99) Calcium Level 9.1 mg/dL (8.5-10.1) 8.6 mg/dL (8.5-10.1) Magnesium Level 1.7 mg/dL (1.8-2.4) 1.7 mg/dL (1.8-2.4) Total Bilirubin 0.2 mg/dL (0.2-1.0) Aspartate Amino Transf (AST/SGOT) 11 U/L (15-37) Alanine Aminotransferase (ALT/SGPT) 14 U/L (14-59) Alkaline Phosphatase 94 U/L (46-116) Creatine Kinase 92 U/L (26-192) Creatine Kinase MB (Mass) 1.4 ng/mL (0.0-3.6) Creatine Kinase MB Relative Index 1.5 % (0-4) Troponin I Quantitative 0.225 ng/mL (0.000-0.055) 0.225 ng/mL (0.000-0.055) GI-Zyo-P-Type Natriuretic Peptide 904 pg/mL (0-449) Total Protein 7.2 g/dL (6.4-8.2) Albumin 3.3 g/dL (3.4-5.0) Albumin/Globulin Ratio 0.8 (1.0-1.7) Lipase 84 U/L (73-393) Urine Collection Type Void Urine Color Yellow Urine Clarity Clear Urine pH 5.0 Urine Specific [place] 1.025 Urine Protein 100 mg/dL (NEG-TRACE) Urine Glucose (UA) >=1000 mg/dL (NEG) Urine Ketones (Stick) Negative mg/dL (NEG) Urine Blood Trace (NEG) Urine Nitrite Negative (NEG) Urine Bilirubin Negative (NEG) Urine Urobilinogen Dipstick 0.2 mg/dL (0.2 mg/dL) Urine Leukocyte Esterase Negative (NEG) Urine RBC Rare /HPF (0-2) Urine WBC Occ /HPF (0-4) Urine Squamous Epithelial Cells Many /LPF Urine Bacteria Few /HPF (0-FEW) Urine Mucus Mod /LPF Glucose (Fingerstick) 91 mg/dL (70-99) Heparin Anti-Xa Act, Unfractionated 0.92 IU/mL (0.30-0.70) Triglycerides Level 35 mg/dL (0-150) Cholesterol Level 177 mg/dL (0-200) LDL Cholesterol, Calculated 91 mg/dL (0-100) VLDL Cholesterol, Calculated 7 mg/dL (0-40) Non-HDL Cholesterol Calculated 98 mg/dL (0-129) HDL Cholesterol 79 mg/dL (40-60) Cholesterol/HDL Ratio 2.2 Test 04/09/19 06:26 04/09/19 11:10 04/09/19 11:50 04/09/19 17:05 Glucose (Fingerstick) 181 mg/dL (70-99) 229 mg/dL (70-99) White Blood Count 4.7 x10^3/uL (4.0-11.0) Red Blood Count 4.04 x10^6/uL (3.50-5.40) Hemoglobin 9.6 g/dL (12.0-15.5) Hematocrit 31.3 % (36.0-47.0) Mean Corpuscular Volume 78 fL (79-100) Mean Corpuscular Hemoglobin 24 pg (25-35) Mean Corpuscular Hemoglobin Concent 31 g/dL (31-37) Red Cell Distribution Width 16.0 % (11.5-14.5) Platelet Count 279 x10^3/uL (140-400) Heparin Anti-Xa Act, Unfractionated 0.53 IU/mL (0.30-0.70) 0.47 IU/mL (0.30-0.70) Troponin I Quantitative 0.231 ng/mL (0.000-0.055) Test 04/09/19 17:16 04/09/19 20:59 04/10/19 07:44 Glucose (Fingerstick) 281 mg/dL (70-99) 247 mg/dL (70-99) 128 mg/dL (70-99) Laboratory Tests Test 04/09/19 11:50 04/09/19 17:05 04/09/19 17:16 04/09/19 20:59 Glucose (Fingerstick) 229 mg/dL (70-99) 281 mg/dL (70-99) 247 mg/dL (70-99) Heparin Anti-Xa Act, Unfractionated 0.47 IU/mL (0.30-0.70) Test 04/10/19 07:44 Glucose (Fingerstick) 128 mg/dL (70-99) Medications Current Medications Aspirin (Children'S Aspirin) 243 mg 1X ONCE PO Last administered on 04/08/19at 22:22; Start 04/08/19 at 22:00; Stop 04/08/19 at 22:01; Status DC Sodium Chloride 1,000 ml @ 1,000 mls/hr 1X ONCE IV Last administered on 04/08/19at 22:23; Start 04/08/19 at 22:00; Stop 04/08/19 at 22:59; Status DC Ketorolac Tromethamine (Toradol 15mg Vial) 10 mg 1X ONCE IV Last administered on 04/08/19at 22:23; Start 04/08/19 at 22:00; Stop 04/08/19 at 22:01; Status DC Heparin Sodium (Porcine) (Heparin Sodium) 4,000 unit 1X ONCE IV Last administered on 04/08/19at 23:39; Start 04/08/19 at 23:30; Stop 04/09/19 at 18:22; Status DC Heparin Sodium/ Dextrose 500 ml @ 0 mls/hr CONT PRN IV SEE I/O RECORD Last administered on 04/08/19at 23:40; Start 04/08/19 at 23:15; Stop 04/09/19 at 18:22; Status DC Ondansetron HCl (Zofran) 4 mg PRN Q8HRS PRN IV NAUSEA/VOMITING 1ST CHOICE; Start 04/08/19 at 23:15; Stop 04/09/19 at 23:14; Status DC Fentanyl Citrate (Fentanyl 2ml Vial) 25 mcg PRN Q2HRS PRN IV SEVERE PAIN; Start 04/08/19 at 23:15 Insulin Human Lispro (HumaLOG) 0-5 UNITS TIDWMEALS SQ Last administered on 04/09/19at 18:10; Start 04/09/19 at 08:00 Dextrose (Dextrose 50%-Water Syringe) 12.5 gm PRN Q15MIN PRN IV SEE COMMENTS; Start 04/08/19 at 23:15 Magnesium Sulfate/ Dextrose 100 ml @ 100 mls/hr 1X ONCE IV Last administered on 04/09/19at 12:27; Start 04/09/19 at 09:30; Stop 04/09/19 at 10:29; Status DC Amlodipine Besylate (Norvasc) 10 mg DAILY PO Last administered on 04/10/19 08:28; Start 04/09/19 at 09:00 Aspirin (Ecotrin) 81 mg DAILY PO Last administered on 04/10/19 08:27; Start 04/09/19 at 09:00 Atorvastatin Calcium (Lipitor) 40 mg HS PO Last administered on 04/09/19at 21:30; Start 04/09/19 at 21:00 Clopidogrel Bisulfate (Plavix) 75 mg DAILY PO Last administered on 04/10/19 08:27; Start 04/09/19 at 09:00 Labetalol HCl (Normodyne Iv Push) 20 mg PRN Q2HR PRN IVP HYPERTENSION, SEE COMMENTS; Start 04/09/19 at 08:45 Info (Anti-Coagulation Monitoring By Pharmacy) 1 each PRN DAILY PRN MC SEE COMMENTS Last administered on 04/09/19at 14:26; Start 04/09/19 at 11:30 Diclofenac Sodium (Voltaren) 100 roseline PRN BID PRN TP PAIN; Start 04/09/19 at 17:30 Ferrous Sulfate (Feosol) 325 mg DAILY PO Last administered on 04/10/19 08:27; Start 04/10/19 at 09:00 Acetaminophen (Tylenol) 1,000 mg PRN Q6HRS PRN PO MILD PAIN / TEMP; Start 04/09/19 at 17:45 Albuterol Sulfate (Ventolin Neb Soln) 2.5 mg PRN Q4HRS PRN NEB SHORTNESS OF BREATH Last administered on 04/09/19at 20:21; Start 04/09/19 at 17:45 Benzonatate (Tessalon Perle) 100 mg PRN TID PRN PO COUGH; Start 04/09/19 at 21:00 Brimonidine Tartrate (Alphagan) 1 drop BID OD Last administered on 04/10/19 08:30; Start 04/09/19 at 21:00 Donepezil HCl (Aricept) 10 mg QHS PO Last administered on 04/09/19 21:30; Start 04/09/19 at 21:00; Stop 04/10/19 at 10:31; Status DC Insulin Human Lispro (HumaLOG) 16 units DAILYWLUN SQ ; Start 04/10/19 at 12:00 Insulin Glargine (Lantus) 16 units DAILYWSUP SQ ; Start 04/10/19 at 17:00 Insulin Glargine (Lantus) 20 units DAILYWBKFT SQ ; Start 04/10/19 at 08:00; Stop 04/10/19 at 10:31; Status DC Insulin Glargine (Lantus) 20 units QHS SQ Last administered on 04/09/19at 21:36; Start 04/09/19 at 21:00 Pantoprazole Sodium (Protonix) 40 mg DAILYAC PO Last administered on 04/10/19at 08:27; Start 04/10/19 at 07:30 Insulin Glargine (Lantus) 20 units HS SQ ; Start 04/10/19 at 21:00 Active Scripts Active Amlodipine Besylate 5 Mg Tablet 10 Mg PO DAILY 60 Days Ferrous Sulfate 325 Mg Tablet 1 Tab PO DAILY Reported Ventolin Hfa Inhaler (Albuterol Sulfate) 18 Gm Hfa.aer.ad 2 Puff INH Q4HRS PRN Protonix (Pantoprazole Sodium) 20 Mg Tablet.dr 40 Mg PO DAILY Plavix (Clopidogrel Bisulfate) 75 Mg Tablet 75 Mg PO DAILY Benzonatate 200 Mg Capsule 1 Cap PO TID PRN Alphagan P (Brimonidine Tartrate) 5 Ml Drops 1 Drop RIGHTEYE BID Voltaren (Diclofenac Sodium) 100 Gm Gel..gram. 100 Gm TP PRN Acetaminophen 500 Mg Tablet 1,000 Mg PO PRN Q6HRS PRN Aspir 81 (Aspirin) 81 Mg Tablet.dr 1 Tab PO DAILY Novolog (Insulin Aspart) 100 Unit/1 Ml Cartridge 16 Unit SQ DAILYWSUP Novolog (Insulin Aspart) 100 Unit/1 Ml Cartridge 16 Unit SQ DAILYWLUN Novolog (Insulin Aspart) 100 Unit/1 Ml Cartridge 20 Unit SQ DAILYWBKFT Levemir (Insulin Detemir) 100 Unit/1 Ml Vial 20 Unit SQ HS Atorvastatin Calcium 40 Mg Tablet 40 Mg PO HS Donepezil Hcl 10 Mg Tablet 10 Mg PO HS Vitals/I & O Vital Sign - Last 24 Hours 04/09/19 04/09/19 04/09/19 04/09/19 11:24 12:27 15:18 19:35 Temp 98.0 97.9 98.0 98.0 97.9 98.0 Pulse 75 75 74 79 Resp 16 18 18 B/P (MAP) 160/71 (100) 160/71 138/60 (86) 135/63 (87) Pulse Ox 95 95 96 O2 Delivery Room Air Room Air Room Air 04/09/19 04/09/19 04/10/19 04/10/19 20:00 23:04 03:15 07:00 Temp 98.6 98.5 97.6 98.6 98.5 97.6 Pulse 75 80 75 Resp 15 18 B/P (MAP) 135/63 (87) 165/75 (105) 146/71 (96) Pulse Ox 94 98 95 O2 Delivery Room Air Room Air Room Air Room Air 04/10/19 08:28 Pulse 80 B/P (MAP) 165/75 Intake and Output 04/09/19 04/09/19 04/10/19 15:00 23:00 07:00 Intake Total 240 ml 830 ml 290 ml Balance 240 ml 830 ml 290 ml WILLIAM CASTRO III DO April 10, 2019 11:19
[2019-04-10] MEDS ORDERED: INSULIN LISPRO 300 UNITS/3 ML INSULN.PEN. SQ SCH (12:00)
[2019-04-10] MEDS: ISOSORBIDE MONONITRATE ER 30 MG TAB.ER.24H PO SCH (12:28)
[2019-04-10] MEDS: METOPROLOL SUCC 24HR ER 25 MG TAB.ER.24H. PO SCH (12:29)
--- NOTE | 2019-04-10 14:18 | PDOC ---
PULMONARY PROGRESS NOTES Subjective PT CONFUSED DAUGHTER AT BEDSIDE PT STILL SOA DID NOT SLEEP WELL Vitals Vital Signs Date Time Temp Pulse Resp B/P (MAP) Pulse Ox O2 Delivery O2 Flow Rate FiO2 04/10/19 12:29 78 123/58 04/10/19 11:00 97.8 18 95 Room Air 97.8 ROS: No Nausea, No Chest Pain, No Abdominal Pain, No Increase Cough General: Confused Lungs: Crackles Cardiovascular: S1, S2 Abdomen: Soft Neuro Exam: Alert Extremities: No Edema Skin: Warm Labs Laboratory Tests Test 04/08/19 21:40 04/08/19 22:28 04/09/19 01:10 04/09/19 05:00 White Blood Count 5.6 x10^3/uL (4.0-11.0) Red Blood Count 4.18 x10^6/uL (3.50-5.40) Hemoglobin 10.2 g/dL (12.0-15.5) Hematocrit 31.9 % (36.0-47.0) Mean Corpuscular Volume 76 fL (79-100) Mean Corpuscular Hemoglobin 24 pg (25-35) Mean Corpuscular Hemoglobin Concent 32 g/dL (31-37) Red Cell Distribution Width 15.9 % (11.5-14.5) Platelet Count 332 x10^3/uL (140-400) Neutrophils (%) (Auto) 46 % (31-73) Lymphocytes (%) (Auto) 44 % (24-48) Monocytes (%) (Auto) 8 % (0-9) Eosinophils (%) (Auto) 2 % (0-3) Basophils (%) (Auto) 1 % (0-3) Neutrophils # (Auto) 2.6 x10^3uL (1.8-7.7) Lymphocytes # (Auto) 2.4 x10^3/uL (1.0-4.8) Monocytes # (Auto) 0.4 x10^3/uL (0.0-1.1) Eosinophils # (Auto) 0.1 x10^3/uL (0.0-0.7) Basophils # (Auto) 0.0 x10^3/uL (0.0-0.2) Sodium Level 141 mmol/L (136-145) 142 mmol/L (136-145) Potassium Level 4.0 mmol/L (3.5-5.1) 3.9 mmol/L (3.5-5.1) Chloride Level 103 mmol/L (98-107) 106 mmol/L (98-107) Carbon Dioxide Level 27 mmol/L (21-32) 25 mmol/L (21-32) Anion Gap 11 (6-14) 11 (6-14) Blood Urea Nitrogen 31 mg/dL (7-20) 26 mg/dL (7-20) Creatinine 1.6 mg/dL (0.6-1.0) 1.4 mg/dL (0.6-1.0) Estimated GFR (Cockcroft-Gault) 37.6 43.9 BUN/Creatinine Ratio 19 (6-20) Glucose Level 198 mg/dL (70-99) 156 mg/dL (70-99) Calcium Level 9.1 mg/dL (8.5-10.1) 8.6 mg/dL (8.5-10.1) Magnesium Level 1.7 mg/dL (1.8-2.4) 1.7 mg/dL (1.8-2.4) Total Bilirubin 0.2 mg/dL (0.2-1.0) Aspartate Amino Transf (AST/SGOT) 11 U/L (15-37) Alanine Aminotransferase (ALT/SGPT) 14 U/L (14-59) Alkaline Phosphatase 94 U/L (46-116) Creatine Kinase 92 U/L (26-192) Creatine Kinase MB (Mass) 1.4 ng/mL (0.0-3.6) Creatine Kinase MB Relative Index 1.5 % (0-4) Troponin I Quantitative 0.225 ng/mL (0.000-0.055) 0.225 ng/mL (0.000-0.055) MR-Idr-D-Type Natriuretic Peptide 904 pg/mL (0-449) Total Protein 7.2 g/dL (6.4-8.2) Albumin 3.3 g/dL (3.4-5.0) Albumin/Globulin Ratio 0.8 (1.0-1.7) Lipase 84 U/L (73-393) Urine Collection Type Void Urine Color Yellow Urine Clarity Clear Urine pH 5.0 Urine Specific [place] 1.025 Urine Protein 100 mg/dL (NEG-TRACE) Urine Glucose (UA) >=1000 mg/dL (NEG) Urine Ketones (Stick) Negative mg/dL (NEG) Urine Blood Trace (NEG) Urine Nitrite Negative (NEG) Urine Bilirubin Negative (NEG) Urine Urobilinogen Dipstick 0.2 mg/dL (0.2 mg/dL) Urine Leukocyte Esterase Negative (NEG) Urine RBC Rare /HPF (0-2) Urine WBC Occ /HPF (0-4) Urine Squamous Epithelial Cells Many /LPF Urine Bacteria Few /HPF (0-FEW) Urine Mucus Mod /LPF Glucose (Fingerstick) 91 mg/dL (70-99) Heparin Anti-Xa Act, Unfractionated 0.92 IU/mL (0.30-0.70) Triglycerides Level 35 mg/dL (0-150) Cholesterol Level 177 mg/dL (0-200) LDL Cholesterol, Calculated 91 mg/dL (0-100) VLDL Cholesterol, Calculated 7 mg/dL (0-40) Non-HDL Cholesterol Calculated 98 mg/dL (0-129) HDL Cholesterol 79 mg/dL (40-60) Cholesterol/HDL Ratio 2.2 Test 04/09/19 06:26 04/09/19 11:10 04/09/19 11:50 04/09/19 17:05 Glucose (Fingerstick) 181 mg/dL (70-99) 229 mg/dL (70-99) White Blood Count 4.7 x10^3/uL (4.0-11.0) Red Blood Count 4.04 x10^6/uL (3.50-5.40) Hemoglobin 9.6 g/dL (12.0-15.5) Hematocrit 31.3 % (36.0-47.0) Mean Corpuscular Volume 78 fL (79-100) Mean Corpuscular Hemoglobin 24 pg (25-35) Mean Corpuscular Hemoglobin Concent 31 g/dL (31-37) Red Cell Distribution Width 16.0 % (11.5-14.5) Platelet Count 279 x10^3/uL (140-400) Heparin Anti-Xa Act, Unfractionated 0.53 IU/mL (0.30-0.70) 0.47 IU/mL (0.30-0.70) Troponin I Quantitative 0.231 ng/mL (0.000-0.055) Test 04/09/19 17:16 04/09/19 20:59 04/10/19 07:44 04/10/19 11:19 Glucose (Fingerstick) 281 mg/dL (70-99) 247 mg/dL (70-99) 128 mg/dL (70-99) 221 mg/dL (70-99) Laboratory Tests Test 04/09/19 17:05 04/09/19 17:16 04/09/19 20:59 04/10/19 07:44 Heparin Anti-Xa Act, Unfractionated 0.47 IU/mL (0.30-0.70) Glucose (Fingerstick) 281 mg/dL (70-99) 247 mg/dL (70-99) 128 mg/dL (70-99) Test 04/10/19 11:19 Glucose (Fingerstick) 221 mg/dL (70-99) Medications Active Scripts Medications Dose Route/Sig Max Daily Dose Days Date Category Ventolin Hfa Inhaler (Albuterol Sulfate) 18 Gm Hfa.aer.ad 2 Puff INH Q4HRS PRN 04/08/19 Reported Amlodipine Besylate 5 Mg Tablet 10 Mg PO DAILY 60 04/07/18 Rx Protonix (Pantoprazole Sodium) 20 Mg Tablet.dr 40 Mg PO DAILY 02/24/18 Reported Plavix (Clopidogrel Bisulfate) 75 Mg Tablet 75 Mg PO DAILY 02/24/18 Reported Benzonatate 200 Mg Capsule 1 Cap PO TID PRN 02/23/18 Reported Alphagan P (Brimonidine Tartrate) 5 Ml Drops 1 Drop RIGHTEYE BID 02/23/18 Reported Voltaren (Diclofenac Sodium) 100 Gm Gel..gram. 100 Gm TP PRN 02/23/18 Reported Ferrous Sulfate 325 Mg Tablet 1 Tab PO DAILY 07/19/17 Rx Acetaminophen 500 Mg Tablet 1,000 Mg PO PRN Q6HRS PRN 07/18/17 Reported Aspir 81 (Aspirin) 81 Mg Tablet.dr 1 Tab PO DAILY 07/18/17 Reported Novolog (Insulin Aspart) 100 Unit/1 Ml Cartridge 16 Unit SQ DAILYWSUP 07/18/17 Reported Novolog (Insulin Aspart) 100 Unit/1 Ml Cartridge 16 Unit SQ DAILYWLUN 07/18/17 Reported Novolog (Insulin Aspart) 100 Unit/1 Ml Cartridge 20 Unit SQ DAILYWBKFT 07/18/17 Reported Levemir (Insulin Detemir) 100 Unit/1 Ml Vial 20 Unit SQ HS 07/18/17 Reported Atorvastatin Calcium 40 Mg Tablet 40 Mg PO HS 07/18/17 Reported Donepezil Hcl 10 Mg Tablet 10 Mg PO HS 05/09/14 Reported Impression . IMPRESSION: 1. Abnormal x-ray, compatible with interstitial edema. 2. Xpvzx-qh-lbtckdc systolic heart failure. 3. Elevated troponin. 4. Cardiomyopathy with known coronary artery disease and previous stent placement. 5. Chronic kidney disease. Plan . D/W DR Kristel LANDIN HE WILL DISCUSS OPTION WITH DAUGHTER 1. Recommend to continue diuresis. 2. Follow chest x-ray and clinical course. 3. Follow Cardiology input. 4. Monitor creatinine. JULIETTE MANN MD April 10, 2019 14:18
[2019-04-10] MEDS: hydrALAZINE 25 MG TABLET PO SCH ×2 (14:38→21:04)
[2019-04-10 15:00] VITALS: BP 114/59
[2019-04-10 19:35] VITALS: BP 132/60
[2019-04-10] MEDS: ATORVASTATIN CALCIUM 40 MG TABLET. PO SCH (21:04)
[2019-04-10] MEDS: INSULIN GLARGINE 300 UNITS/3 ML INSULN.PEN. SQ SCH (21:15)
[2019-04-10 22:40] VITALS: BP 109/56
[2019-04-11 03:15] VITALS: BP 140/62
[2019-04-11 04:15] LABS: BASO % 1 % (0-3); EOS # 0.2 x10^3/uL (0.0-0.7); EOS % 4 % (0-3); HEMOGLOBIN 8.4 g/dL (12.0-15.5); LYMPH # 2.8 x10^3/uL (1.0-4.8); LYMPH % 46 % (24-48); MEAN CORPUSCULAR HEMOGLOBIN 24 pg (25-35); MEAN CORPUSCULAR HGB CONC 31 g/dL (31-37); MEAN CORPUSCULAR VOLUME 77 fL (79-100); MONO # 0.5 x10^3/uL (0.0-1.1); MONO % 9 % (0-9); NEUT # 2.5 x10^3uL (1.8-7.7); NEUT % 41 % (31-73); PLATELET COUNT 284 x10^3/uL (140-400); RED BLOOD COUNT 3.51 x10^6/uL (3.50-5.40); RED CELL DISTRIBUTION WIDTH 16.4 % (11.5-14.5)
[2019-04-11 04:35] LABS: CALCIUM 8.7 mg/dL (8.5-10.1); CREATININE 1.9 mg/dL (0.6-1.0); GFR 30.9; POTASSIUM 4.5 mmol/L (3.5-5.1)
[2019-04-11 07:00] VITALS: BP 162/75
[2019-04-11] MEDS: INSULIN LISPRO 300 UNITS/3 ML INSULN.PEN. SQ SCH ×6 (08:00→17:04)
[2019-04-11] MEDS: CLOPIDOGREL BISULFATE 75 MG TABLET PO SCH (08:16)
[2019-04-11] MEDS: ISOSORBIDE MONONITRATE ER 30 MG TAB.ER.24H PO SCH (08:16)
[2019-04-11] MEDS: amLODIPine BESYLATE 5 MG TABLET PO SCH (08:16)
[2019-04-11] MEDS: ASPIRIN ENTERIC COATED 81 MG TABLET.DR. PO SCH (08:16)
[2019-04-11] MEDS: hydrALAZINE 25 MG TABLET PO SCH ×2 (08:17→21:00)
[2019-04-11] MEDS: METOPROLOL SUCC 24HR ER 25 MG TAB.ER.24H. PO SCH (08:17)
[2019-04-11] MEDS: PANTOPRAZOLE 40 MG TABLET.DR. PO SCH (08:17)
[2019-04-11] MEDS: FERROUS SULFATE 325 MG TABLET. PO SCH (08:17)
[2019-04-11] MEDS: BRIMONIDINE 0.2% OPHTH SOLUTION 5ML BOTTLE. OD SCH ×2 (08:18→21:00)
[2019-04-11 11:00] VITALS: BP 123/57
[2019-04-11] MEDS ORDERED: IV NORMAL SALINE 1000ML BAG 500 ML IV ONE (11:15)
--- NOTE | 2019-04-11 12:02 | PDOC ---
PULMONARY PROGRESS NOTES Subjective PT CONFUSED DAUGHTER AT BEDSIDE PT STILL SOA DID NOT SLEEP WELL Vitals Vital Signs Date Time Temp Pulse Resp B/P (MAP) Pulse Ox O2 Delivery O2 Flow Rate FiO2 04/11/19 11:00 97.8 67 18 123/57 (79) 93 Room Air 97.8 ROS: No Nausea, No Chest Pain, No Abdominal Pain, No Increase Cough General: Confused Lungs: Crackles Cardiovascular: S1, S2 Abdomen: Soft Neuro Exam: Alert Extremities: No Edema Skin: Warm Labs Laboratory Tests Test 04/09/19 17:05 04/09/19 17:16 04/09/19 20:59 04/10/19 07:44 Heparin Anti-Xa Act, Unfractionated 0.47 IU/mL (0.30-0.70) Glucose (Fingerstick) 281 mg/dL (70-99) 247 mg/dL (70-99) 128 mg/dL (70-99) Test 04/10/19 11:19 04/10/19 17:09 04/10/19 20:42 04/11/19 03:30 Glucose (Fingerstick) 221 mg/dL (70-99) 201 mg/dL (70-99) 96 mg/dL (70-99) White Blood Count 6.0 x10^3/uL (4.0-11.0) Red Blood Count 3.51 x10^6/uL (3.50-5.40) Hemoglobin 8.4 g/dL (12.0-15.5) Hematocrit 27.0 % (36.0-47.0) Mean Corpuscular Volume 77 fL (79-100) Mean Corpuscular Hemoglobin 24 pg (25-35) Mean Corpuscular Hemoglobin Concent 31 g/dL (31-37) Red Cell Distribution Width 16.4 % (11.5-14.5) Platelet Count 284 x10^3/uL (140-400) Neutrophils (%) (Auto) 41 % (31-73) Lymphocytes (%) (Auto) 46 % (24-48) Monocytes (%) (Auto) 9 % (0-9) Eosinophils (%) (Auto) 4 % (0-3) Basophils (%) (Auto) 1 % (0-3) Neutrophils # (Auto) 2.5 x10^3uL (1.8-7.7) Lymphocytes # (Auto) 2.8 x10^3/uL (1.0-4.8) Monocytes # (Auto) 0.5 x10^3/uL (0.0-1.1) Eosinophils # (Auto) 0.2 x10^3/uL (0.0-0.7) Basophils # (Auto) 0.0 x10^3/uL (0.0-0.2) Sodium Level 140 mmol/L (136-145) Potassium Level 4.5 mmol/L (3.5-5.1) Chloride Level 105 mmol/L (98-107) Carbon Dioxide Level 26 mmol/L (21-32) Anion Gap 9 (6-14) Blood Urea Nitrogen 31 mg/dL (7-20) Creatinine 1.9 mg/dL (0.6-1.0) Estimated GFR (Cockcroft-Gault) 30.9 Glucose Level 214 mg/dL (70-99) Calcium Level 8.7 mg/dL (8.5-10.1) Test 04/11/19 07:20 Glucose (Fingerstick) 138 mg/dL (70-99) Laboratory Tests Test 04/10/19 17:09 04/10/19 20:42 04/11/19 03:30 04/11/19 07:20 Glucose (Fingerstick) 201 mg/dL (70-99) 96 mg/dL (70-99) 138 mg/dL (70-99) White Blood Count 6.0 x10^3/uL (4.0-11.0) Red Blood Count 3.51 x10^6/uL (3.50-5.40) Hemoglobin 8.4 g/dL (12.0-15.5) Hematocrit 27.0 % (36.0-47.0) Mean Corpuscular Volume 77 fL (79-100) Mean Corpuscular Hemoglobin 24 pg (25-35) Mean Corpuscular Hemoglobin Concent 31 g/dL (31-37) Red Cell Distribution Width 16.4 % (11.5-14.5) Platelet Count 284 x10^3/uL (140-400) Neutrophils (%) (Auto) 41 % (31-73) Lymphocytes (%) (Auto) 46 % (24-48) Monocytes (%) (Auto) 9 % (0-9) Eosinophils (%) (Auto) 4 % (0-3) Basophils (%) (Auto) 1 % (0-3) Neutrophils # (Auto) 2.5 x10^3uL (1.8-7.7) Lymphocytes # (Auto) 2.8 x10^3/uL (1.0-4.8) Monocytes # (Auto) 0.5 x10^3/uL (0.0-1.1) Eosinophils # (Auto) 0.2 x10^3/uL (0.0-0.7) Basophils # (Auto) 0.0 x10^3/uL (0.0-0.2) Sodium Level 140 mmol/L (136-145) Potassium Level 4.5 mmol/L (3.5-5.1) Chloride Level 105 mmol/L (98-107) Carbon Dioxide Level 26 mmol/L (21-32) Anion Gap 9 (6-14) Blood Urea Nitrogen 31 mg/dL (7-20) Creatinine 1.9 mg/dL (0.6-1.0) Estimated GFR (Cockcroft-Gault) 30.9 Glucose Level 214 mg/dL (70-99) Calcium Level 8.7 mg/dL (8.5-10.1) Medications Active Scripts Medications Dose Route/Sig Max Daily Dose Days Date Category Ventolin Hfa Inhaler (Albuterol Sulfate) 18 Gm Hfa.aer.ad 2 Puff INH Q4HRS PRN 04/08/19 Reported Amlodipine Besylate 5 Mg Tablet 10 Mg PO DAILY 60 04/07/18 Rx Protonix (Pantoprazole Sodium) 20 Mg Tablet.dr 40 Mg PO DAILY 02/24/18 Reported Plavix (Clopidogrel Bisulfate) 75 Mg Tablet 75 Mg PO DAILY 02/24/18 Reported Benzonatate 200 Mg Capsule 1 Cap PO TID PRN 02/23/18 Reported Alphagan P (Brimonidine Tartrate) 5 Ml Drops 1 Drop RIGHTEYE BID 02/23/18 Reported Voltaren (Diclofenac Sodium) 100 Gm Gel..gram. 100 Gm TP PRN 02/23/18 Reported Ferrous Sulfate 325 Mg Tablet 1 Tab PO DAILY 07/19/17 Rx Acetaminophen 500 Mg Tablet 1,000 Mg PO PRN Q6HRS PRN 07/18/17 Reported Aspir 81 (Aspirin) 81 Mg Tablet.dr 1 Tab PO DAILY 07/18/17 Reported Novolog (Insulin Aspart) 100 Unit/1 Ml Cartridge 16 Unit SQ DAILYWSUP 07/18/17 Reported Novolog (Insulin Aspart) 100 Unit/1 Ml Cartridge 16 Unit SQ DAILYWLUN 07/18/17 Reported Novolog (Insulin Aspart) 100 Unit/1 Ml Cartridge 20 Unit SQ DAILYWBKFT 07/18/17 Reported Levemir (Insulin Detemir) 100 Unit/1 Ml Vial 20 Unit SQ HS 07/18/17 Reported Atorvastatin Calcium 40 Mg Tablet 40 Mg PO HS 07/18/17 Reported Donepezil Hcl 10 Mg Tablet 10 Mg PO HS 05/09/14 Reported Impression . IMPRESSION: 1. Abnormal x-ray, compatible with interstitial edema. 2. Thada-xv-uxujzpu systolic heart failure. 3. Elevated troponin. 4. Cardiomyopathy with known coronary artery disease and previous stent placement. 5. Chronic kidney disease. Plan . D/W DR Kristel LANDIN HE WILL DISCUSS OPTION WITH DAUGHTER 1. Recommend to continue diuresis. 2. Follow chest x-ray and clinical course. 3. Follow Cardiology input. 4. Monitor creatinine. JULIETTE MANN MD April 11, 2019 12:02
--- NOTE | 2019-04-11 12:30 | SNU/HH DC ---
DISCHARGE WITH HOME HEALTH DISCHARGE INFORMATION: Final Diagnosis: Problems Medical Problems: (1) Back pain Status: Acute (2) Elevated troponin Status: Acute (3) Shoulder pain Status: Acute Condition on Discharge: Stable CODE STATUS: Code Status: Full HOME HEALTH: Face to Face: I certify this patient is under my care and that I, or a nurse practitioner or physician's assistant director of admissions working with me, had a face to face encounter that meets the physician face to face encounter requirements with this patient on []. Medical Complications: Dementia RN For Eval/Treatment: Yes Physical Therapy For: Evalulation/Treatment Occupational Therapy For: Evaluation/Treatment Home Health Aide For: Self-care PHOTOCOPYING MACHINE OPERATOR For: Community Resources Pt Meets Homebound Status: Unsteady balance w/ amb, POST DISCHARGE ORDERS: Activity Instructions for Disc: Activity as tolerated Weight Bearing Status after Di: No restrictions DIET AFTER DISCHARGE: Cardiac CHECKS AFTER DISCHARGE: Checks after discharge: Check blood sugar, ac/hs TREATMENT/EQUIPMENT ORDERS: Adaptive Equipment Issued: None CERTIFICATION STATEMENT: Certification Statement: Certification Statement: Based on the above finding, I certify that this patient is confined to the home and needs intermittent detention care, physical therapy and/or speech therapy, or continues to need occupational therapy.~ This patient is under my care, and I have initiated the establishment of the plan of care.~ This patient will be followed by myself or a community physician who will periodically review the plan of care. Home Meds Active Scripts Amlodipine Besylate (AMLODIPINE BESYLATE) 5 Mg Tablet, 10 MG PO DAILY for 60 Days, #120 TAB Prov:CONSTANTINO RINCON MD 04/07/18 Ferrous Sulfate (FERROUS SULFATE) 325 Mg Tablet, 1 TAB PO DAILY, #30 TAB 1 Refill Prov:CHRISTINA MCKEON MD 07/19/17 Reported Medications Albuterol Sulfate (VENTOLIN HFA INHALER) 18 Gm Hfa.aer.ad, 2 PUFF INH Q4HRS PRN for WHEEZING, INHALER 0 Refills 04/08/19 Pantoprazole Sodium (PROTONIX) 20 Mg Tablet.dr, 40 MG PO DAILY, TAB 02/24/18 Clopidogrel Bisulfate (PLAVIX) 75 Mg Tablet, 75 MG PO DAILY for TO PREVENT BLOOD CLOTS, #30 TAB 0 Refills 02/24/18 Benzonatate (BENZONATATE) 200 Mg Capsule, 1 CAP PO TID PRN for COUGH, #30 CAP 02/23/18 Brimonidine Tartrate (ALPHAGAN P) 5 Ml Drops, 1 DROP RIGHTEYE BID, #15 ML 3 Refills 02/23/18 Diclofenac Sodium (VOLTAREN) 100 Gm Gel..gram., 100 GM TP PRN for PAIN, EACH 02/23/18 Acetaminophen (ACETAMINOPHEN) 500 Mg Tablet, 1000 MG PO PRN Q6HRS PRN for PAIN, TAB 07/18/17 Aspirin (ASPIR 81) 81 Mg Tablet.dr, 1 TAB PO DAILY, #30 TAB 5 Refills 07/18/17 Insulin Aspart (NOVOLOG) 100 Unit/1 Ml Cartridge, 16 UNIT SQ DAILYWSUP, EACH 07/18/17 Insulin Aspart (NOVOLOG) 100 Unit/1 Ml Cartridge, 16 UNIT SQ DAILYWLUN, EACH 07/18/17 Insulin Aspart (NOVOLOG) 100 Unit/1 Ml Cartridge, 20 UNIT SQ DAILYWBKFT, EACH 07/18/17 Insulin Detemir (LEVEMIR) 100 Unit/1 Ml Vial, 20 UNIT SQ HS, VIAL 07/18/17 Atorvastatin Calcium (ATORVASTATIN CALCIUM) 40 Mg Tablet, 40 MG PO HS for FOR CHOLESTEROL, #30 TAB 0 Refills 07/18/17 Donepezil Hcl (DONEPEZIL HCL) 10 Mg Tablet, 10 MG PO HS, TAB 05/09/14 WILLIAM CASTRO III DO April 11, 2019 12:30
--- NOTE | 2019-04-11 12:36 | PDOC ---
[facility] [facility] PROGRESS NOTE Chief Complaint Chief Complaint Left arm pain Mildly elevated troponin- likely renal cause CAD Hypercholesterolemia HTN Prior [place] s/p cardiac stenting DM II Abnormal chest x-ray History of Present Illness History of Present Illness Patient seen and examined Patient was well appearing and had a pleasant disposition Discussed with daughter Discussed with Nurse Echo revealed EF of 40%, and global L ventricular hypokinesis suggestive of conduction defect Reviewed Pulm note. Creatinine is up to 1.9 Vitals Vitals Vital Signs Date Time Temp Pulse Resp B/P (MAP) Pulse Ox O2 Delivery O2 Flow Rate FiO2 04/11/19 11:00 97.8 67 18 123/57 (79) 93 Room Air 97.8 Physical Exam General: Alert, Cooperative, No acute distress, Other (Oriented x1) Heart: Regular rate (SR), Normal S1, Normal S2, Other (2/6 systolic murmur to apex) Lungs: Crackles Abdomen: Soft, No tenderness Extremities: No cyanosis, No edema Skin: No breakdown, No significant lesion Labs LABS Laboratory Tests Test 04/10/19 17:09 04/10/19 20:42 04/11/19 03:30 04/11/19 07:20 Glucose (Fingerstick) 201 mg/dL (70-99) 96 mg/dL (70-99) 138 mg/dL (70-99) White Blood Count 6.0 x10^3/uL (4.0-11.0) Red Blood Count 3.51 x10^6/uL (3.50-5.40) Hemoglobin 8.4 g/dL (12.0-15.5) Hematocrit 27.0 % (36.0-47.0) Mean Corpuscular Volume 77 fL (79-100) Mean Corpuscular Hemoglobin 24 pg (25-35) Mean Corpuscular Hemoglobin Concent 31 g/dL (31-37) Red Cell Distribution Width 16.4 % (11.5-14.5) Platelet Count 284 x10^3/uL (140-400) Neutrophils (%) (Auto) 41 % (31-73) Lymphocytes (%) (Auto) 46 % (24-48) Monocytes (%) (Auto) 9 % (0-9) Eosinophils (%) (Auto) 4 % (0-3) Basophils (%) (Auto) 1 % (0-3) Neutrophils # (Auto) 2.5 x10^3uL (1.8-7.7) Lymphocytes # (Auto) 2.8 x10^3/uL (1.0-4.8) Monocytes # (Auto) 0.5 x10^3/uL (0.0-1.1) Eosinophils # (Auto) 0.2 x10^3/uL (0.0-0.7) Basophils # (Auto) 0.0 x10^3/uL (0.0-0.2) Sodium Level 140 mmol/L (136-145) Potassium Level 4.5 mmol/L (3.5-5.1) Chloride Level 105 mmol/L (98-107) Carbon Dioxide Level 26 mmol/L (21-32) Anion Gap 9 (6-14) Blood Urea Nitrogen 31 mg/dL (7-20) Creatinine 1.9 mg/dL (0.6-1.0) Estimated GFR (Cockcroft-Gault) 30.9 Glucose Level 214 mg/dL (70-99) Calcium Level 8.7 mg/dL (8.5-10.1) Test 04/11/19 12:00 Glucose (Fingerstick) 119 mg/dL (70-99) Review of Systems Review of Systems Complains of weakness complains of hunger Assessment and Plan Assessmemt and Plan Problems Medical Problems: (1) Back pain Status: Acute (2) Elevated troponin Status: Acute (3) Shoulder pain Status: Acute Dehydration with elevated creatinine Left arm pain Mildly elevated troponin- likely renal cause CAD Hypercholesterolemia HTN Prior [place] s/p cardiac stenting DM II Abnormal chest x-ray Plan Gentle IV fluids Cardiac monitoring Home meds PT OT Full code DVT prophylaxis Hope to discharge tomorrow if stable Comment Review of Relevant I have reviewed the following items all (where applicable) has been applied. Labs Laboratory Tests Test 04/09/19 17:05 04/09/19 17:16 04/09/19 20:59 04/10/19 07:44 Heparin Anti-Xa Act, Unfractionated 0.47 IU/mL (0.30-0.70) Glucose (Fingerstick) 281 mg/dL (70-99) 247 mg/dL (70-99) 128 mg/dL (70-99) Test 04/10/19 11:19 04/10/19 17:09 04/10/19 20:42 04/11/19 03:30 Glucose (Fingerstick) 221 mg/dL (70-99) 201 mg/dL (70-99) 96 mg/dL (70-99) White Blood Count 6.0 x10^3/uL (4.0-11.0) Red Blood Count 3.51 x10^6/uL (3.50-5.40) Hemoglobin 8.4 g/dL (12.0-15.5) Hematocrit 27.0 % (36.0-47.0) Mean Corpuscular Volume 77 fL (79-100) Mean Corpuscular Hemoglobin 24 pg (25-35) Mean Corpuscular Hemoglobin Concent 31 g/dL (31-37) Red Cell Distribution Width 16.4 % (11.5-14.5) Platelet Count 284 x10^3/uL (140-400) Neutrophils (%) (Auto) 41 % (31-73) Lymphocytes (%) (Auto) 46 % (24-48) Monocytes (%) (Auto) 9 % (0-9) Eosinophils (%) (Auto) 4 % (0-3) Basophils (%) (Auto) 1 % (0-3) Neutrophils # (Auto) 2.5 x10^3uL (1.8-7.7) Lymphocytes # (Auto) 2.8 x10^3/uL (1.0-4.8) Monocytes # (Auto) 0.5 x10^3/uL (0.0-1.1) Eosinophils # (Auto) 0.2 x10^3/uL (0.0-0.7) Basophils # (Auto) 0.0 x10^3/uL (0.0-0.2) Sodium Level 140 mmol/L (136-145) Potassium Level 4.5 mmol/L (3.5-5.1) Chloride Level 105 mmol/L (98-107) Carbon Dioxide Level 26 mmol/L (21-32) Anion Gap 9 (6-14) Blood Urea Nitrogen 31 mg/dL (7-20) Creatinine 1.9 mg/dL (0.6-1.0) Estimated GFR (Cockcroft-Gault) 30.9 Glucose Level 214 mg/dL (70-99) Calcium Level 8.7 mg/dL (8.5-10.1) Test 04/11/19 07:20 04/11/19 12:00 Glucose (Fingerstick) 138 mg/dL (70-99) 119 mg/dL (70-99) Laboratory Tests Test 04/10/19 17:09 04/10/19 20:42 04/11/19 03:30 04/11/19 07:20 Glucose (Fingerstick) 201 mg/dL (70-99) 96 mg/dL (70-99) 138 mg/dL (70-99) White Blood Count 6.0 x10^3/uL (4.0-11.0) Red Blood Count 3.51 x10^6/uL (3.50-5.40) Hemoglobin 8.4 g/dL (12.0-15.5) Hematocrit 27.0 % (36.0-47.0) Mean Corpuscular Volume 77 fL (79-100) Mean Corpuscular Hemoglobin 24 pg (25-35) Mean Corpuscular Hemoglobin Concent 31 g/dL (31-37) Red Cell Distribution Width 16.4 % (11.5-14.5) Platelet Count 284 x10^3/uL (140-400) Neutrophils (%) (Auto) 41 % (31-73) Lymphocytes (%) (Auto) 46 % (24-48) Monocytes (%) (Auto) 9 % (0-9) Eosinophils (%) (Auto) 4 % (0-3) Basophils (%) (Auto) 1 % (0-3) Neutrophils # (Auto) 2.5 x10^3uL (1.8-7.7) Lymphocytes # (Auto) 2.8 x10^3/uL (1.0-4.8) Monocytes # (Auto) 0.5 x10^3/uL (0.0-1.1) Eosinophils # (Auto) 0.2 x10^3/uL (0.0-0.7) Basophils # (Auto) 0.0 x10^3/uL (0.0-0.2) Sodium Level 140 mmol/L (136-145) Potassium Level 4.5 mmol/L (3.5-5.1) Chloride Level 105 mmol/L (98-107) Carbon Dioxide Level 26 mmol/L (21-32) Anion Gap 9 (6-14) Blood Urea Nitrogen 31 mg/dL (7-20) Creatinine 1.9 mg/dL (0.6-1.0) Estimated GFR (Cockcroft-Gault) 30.9 Glucose Level 214 mg/dL (70-99) Calcium Level 8.7 mg/dL (8.5-10.1) Test 04/11/19 12:00 Glucose (Fingerstick) 119 mg/dL (70-99) Medications Current Medications Aspirin (Children'S Aspirin) 243 mg 1X ONCE PO Last administered on 04/08/19at 22:22; Start 04/08/19 at 22:00; Stop 04/08/19 at 22:01; Status DC Sodium Chloride 1,000 ml @ 1,000 mls/hr 1X ONCE IV Last administered on 04/08/19at 22:23; Start 04/08/19 at 22:00; Stop 04/08/19 at 22:59; Status DC Ketorolac Tromethamine (Toradol 15mg Vial) 10 mg 1X ONCE IV Last administered on 04/08/19at 22:23; Start 04/08/19 at 22:00; Stop 04/08/19 at 22:01; Status DC Heparin Sodium (Porcine) (Heparin Sodium) 4,000 unit 1X ONCE IV Last administered on 04/08/19at 23:39; Start 04/08/19 at 23:30; Stop 04/09/19 at 18:22; Status DC Heparin Sodium/ Dextrose 500 ml @ 0 mls/hr CONT PRN IV SEE I/O RECORD Last administered on 04/08/19at 23:40; Start 04/08/19 at 23:15; Stop 04/09/19 at 18:22; Status DC Ondansetron HCl (Zofran) 4 mg PRN Q8HRS PRN IV NAUSEA/VOMITING 1ST CHOICE; Start 04/08/19 at 23:15; Stop 04/09/19 at 23:14; Status DC Fentanyl Citrate (Fentanyl 2ml Vial) 25 mcg PRN Q2HRS PRN IV SEVERE PAIN; Start 04/08/19 at 23:15 Insulin Human Lispro (HumaLOG) 0-5 UNITS TIDWMEALS SQ Last administered on 04/10/19at 17:49; Start 04/09/19 at 08:00 Dextrose (Dextrose 50%-Water Syringe) 12.5 gm PRN Q15MIN PRN IV SEE COMMENTS; Start 04/08/19 at 23:15 Magnesium Sulfate/ Dextrose 100 ml @ 100 mls/hr 1X ONCE IV Last administered on 04/09/19at 12:27; Start 04/09/19 at 09:30; Stop 04/09/19 at 10:29; Status DC Amlodipine Besylate (Norvasc) 10 mg DAILY PO Last administered on 04/11/19 08:16; Start 04/09/19 at 09:00 Aspirin (Ecotrin) 81 mg DAILY PO Last administered on 04/11/19 08:16; Start 04/09/19 at 09:00 Atorvastatin Calcium (Lipitor) 40 mg HS PO Last administered on 04/10/19 21:04; Start 04/09/19 at 21:00 Clopidogrel Bisulfate (Plavix) 75 mg DAILY PO Last administered on 04/11/19 08:16; Start 04/09/19 at 09:00 Labetalol HCl (Normodyne Iv Push) 20 mg PRN Q2HR PRN IVP HYPERTENSION, SEE COMMENTS; Start 04/09/19 at 08:45 Info (Anti-Coagulation Monitoring By Pharmacy) 1 each PRN DAILY PRN MC SEE COMMENTS Last administered on 04/09/19 14:26; Start 04/09/19 at 11:30 Diclofenac Sodium (Voltaren) 100 roseline PRN BID PRN TP PAIN; Start 04/09/19 at 17:30 Ferrous Sulfate (Feosol) 325 mg DAILY PO Last administered on 04/11/19 08:17; Start 04/10/19 at 09:00 Acetaminophen (Tylenol) 1,000 mg PRN Q6HRS PRN PO MILD PAIN / TEMP Last administered on 04/11/19 11:32; Start 04/09/19 at 17:45 Albuterol Sulfate (Ventolin Neb Soln) 2.5 mg PRN Q4HRS PRN NEB SHORTNESS OF BREATH Last administered on 04/09/19 20:21; Start 04/09/19 at 17:45 Benzonatate (Tessalon Perle) 100 mg PRN TID PRN PO COUGH; Start 04/09/19 at 21:00 Brimonidine Tartrate (Alphagan) 1 drop BID OD Last administered on 04/11/19 08:18; Start 04/09/19 at 21:00 Donepezil HCl (Aricept) 10 mg QHS PO Last administered on 04/09/19at 21:30; Start 04/09/19 at 21:00; Stop 04/10/19 at 10:31; Status DC Insulin Human Lispro (HumaLOG) 16 units DAILYWLUN SQ Last administered on 04/10/19at 12:33; Start 04/10/19 at 12:00; Stop 04/10/19 at 17:38; Status DC Insulin Glargine (Lantus) 16 units DAILYWSUP SQ ; Start 04/10/19 at 17:00; Status Cancel Insulin Glargine (Lantus) 20 units DAILYWBKFT SQ ; Start 04/10/19 at 08:00; Stop 04/10/19 at 10:31; Status DC Insulin Glargine (Lantus) 20 units QHS SQ Last administered on 04/10/19at 21:15; Start 04/09/19 at 21:00 Pantoprazole Sodium (Protonix) 40 mg DAILYAC PO Last administered on 04/11/19 08:17; Start 04/10/19 at 07:30 Insulin Glargine (Lantus) 20 units HS SQ ; Start 04/10/19 at 21:00; Status Cancel Hydralazine HCl (Apresoline) 25 mg BID PO Last administered on 04/11/19 08:17; Start 04/10/19 at 11:30 Isosorbide Mononitrate (Imdur) 30 mg DAILY PO Last administered on 04/11/19 08:16; Start 04/10/19 at 11:15 Metoprolol Succinate (Toprol Xl) 25 mg DAILY PO Last administered on 04/11/19 08:17; Start 04/10/19 at 11:15 Insulin Human Lispro (HumaLOG) 16 units TIDBFRMEAL SQ Last administered on 04/11/19 12:27; Start 04/10/19 at 18:00 Sodium Chloride 500 ml @ 125 mls/hr 1X ONCE IV Last administered on 04/11/19 12:20; Start 04/11/19 at 11:15; Stop 04/11/19 at 15:14 Active Scripts Active Amlodipine Besylate 5 Mg Tablet 10 Mg PO DAILY 60 Days Ferrous Sulfate 325 Mg Tablet 1 Tab PO DAILY Reported Ventolin Hfa Inhaler (Albuterol Sulfate) 18 Gm Hfa.aer.ad 2 Puff INH Q4HRS PRN Protonix (Pantoprazole Sodium) 20 Mg Tablet.dr 40 Mg PO DAILY Plavix (Clopidogrel Bisulfate) 75 Mg Tablet 75 Mg PO DAILY Benzonatate 200 Mg Capsule 1 Cap PO TID PRN Alphagan P (Brimonidine Tartrate) 5 Ml Drops 1 Drop RIGHTEYE BID Voltaren (Diclofenac Sodium) 100 Gm Gel..gram. 100 Gm TP PRN Acetaminophen 500 Mg Tablet 1,000 Mg PO PRN Q6HRS PRN Aspir 81 (Aspirin) 81 Mg Tablet. 1 Tab PO DAILY Novolog (Insulin Aspart) 100 Unit/1 Ml Cartridge 16 Unit SQ DAILYWSUP Novolog (Insulin Aspart) 100 Unit/1 Ml Cartridge 16 Unit SQ DAILYWLUN Novolog (Insulin Aspart) 100 Unit/1 Ml Cartridge 20 Unit SQ DAILYWBKFT Levemir (Insulin Detemir) 100 Unit/1 Ml Vial 20 Unit SQ HS Atorvastatin Calcium 40 Mg Tablet 40 Mg PO HS Donepezil Hcl 10 Mg Tablet 10 Mg PO HS Vitals/I & O Vital Sign - Last 24 Hours 04/10/19 04/10/19 04/10/19 04/10/19 14:38 15:00 19:35 20:00 Temp 98.0 98.0 98.0 98.0 Pulse 74 78 67 Resp 18 20 B/P (MAP) 134/64 114/59 (77) 132/60 (84) Pulse Ox 98 96 O2 Delivery Room Air Room Air Room Air 04/10/19 04/10/19 04/11/19 04/11/19 21:04 22:40 03:15 07:00 Temp 98.2 97.8 97.6 98.2 97.8 97.6 Pulse 67 64 75 72 Resp 18 18 18 B/P (MAP) 132/60 109/56 (73) 140/62 (88) 162/75 (104) Pulse Ox 96 95 95 O2 Delivery Room Air Room Air Room Air 04/11/19 04/11/19 04/11/19 04/11/19 08:00 08:16 08:16 08:17 Pulse 75 75 75 B/P (MAP) 140/62 140/62 140/62 O2 Delivery Room Air 04/11/19 04/11/19 08:17 11:00 Temp 97.8 97.8 Pulse 75 67 Resp 18 B/P (MAP) 140/62 123/57 (79) Pulse Ox 93 O2 Delivery Room Air Intake and Output 04/10/19 04/10/19 04/11/19 15:00 23:00 07:00 Intake Total 950 ml Balance 950 ml WILLIAM CASTRO III DO April 11, 2019 12:36
[2019-04-11 13:00] LABS: HEMATOCRIT 29.7 % (36.0-47.0); HEMOGLOBIN 9.3 g/dL (12.0-15.5); RED BLOOD COUNT 3.87 x10^6/uL (3.50-5.40); RED CELL DISTRIBUTION WIDTH 16.1 % (11.5-14.5); WHITE BLOOD COUNT 6.1 x10^3/uL (4.0-11.0)
[2019-04-11 15:00] VITALS: BP 127/61
--- NOTE | 2019-04-11 15:52 | PDOC ---
PULMONARY PROGRESS NOTES Subjective NO DISTRESS BETTER SPIRITS TODAY Vitals Vital Signs Date Time Temp Pulse Resp B/P (MAP) Pulse Ox O2 Delivery O2 Flow Rate FiO2 04/11/19 15:00 97.5 67 18 127/61 (83) 97 Room Air 97.5 ROS: No Nausea, No Chest Pain, No Abdominal Pain, No Increase Cough General: Confused Lungs: Crackles Cardiovascular: S1, S2 Abdomen: Soft Neuro Exam: Alert Extremities: No Edema Skin: Warm Labs Laboratory Tests Test 04/09/19 17:05 04/09/19 17:16 04/09/19 20:59 04/10/19 07:44 Heparin Anti-Xa Act, Unfractionated 0.47 IU/mL (0.30-0.70) Glucose (Fingerstick) 281 mg/dL (70-99) 247 mg/dL (70-99) 128 mg/dL (70-99) Test 04/10/19 11:19 04/10/19 17:09 04/10/19 20:42 04/11/19 03:30 Glucose (Fingerstick) 221 mg/dL (70-99) 201 mg/dL (70-99) 96 mg/dL (70-99) White Blood Count 6.0 x10^3/uL (4.0-11.0) Red Blood Count 3.51 x10^6/uL (3.50-5.40) Hemoglobin 8.4 g/dL (12.0-15.5) Hematocrit 27.0 % (36.0-47.0) Mean Corpuscular Volume 77 fL (79-100) Mean Corpuscular Hemoglobin 24 pg (25-35) Mean Corpuscular Hemoglobin Concent 31 g/dL (31-37) Red Cell Distribution Width 16.4 % (11.5-14.5) Platelet Count 284 x10^3/uL (140-400) Neutrophils (%) (Auto) 41 % (31-73) Lymphocytes (%) (Auto) 46 % (24-48) Monocytes (%) (Auto) 9 % (0-9) Eosinophils (%) (Auto) 4 % (0-3) Basophils (%) (Auto) 1 % (0-3) Neutrophils # (Auto) 2.5 x10^3uL (1.8-7.7) Lymphocytes # (Auto) 2.8 x10^3/uL (1.0-4.8) Monocytes # (Auto) 0.5 x10^3/uL (0.0-1.1) Eosinophils # (Auto) 0.2 x10^3/uL (0.0-0.7) Basophils # (Auto) 0.0 x10^3/uL (0.0-0.2) Sodium Level 140 mmol/L (136-145) Potassium Level 4.5 mmol/L (3.5-5.1) Chloride Level 105 mmol/L (98-107) Carbon Dioxide Level 26 mmol/L (21-32) Anion Gap 9 (6-14) Blood Urea Nitrogen 31 mg/dL (7-20) Creatinine 1.9 mg/dL (0.6-1.0) Estimated GFR (Cockcroft-Gault) 30.9 Glucose Level 214 mg/dL (70-99) Calcium Level 8.7 mg/dL (8.5-10.1) Test 04/11/19 07:20 04/11/19 12:00 04/11/19 12:45 Glucose (Fingerstick) 138 mg/dL (70-99) 119 mg/dL (70-99) White Blood Count 6.1 x10^3/uL (4.0-11.0) Red Blood Count 3.87 x10^6/uL (3.50-5.40) Hemoglobin 9.3 g/dL (12.0-15.5) Hematocrit 29.7 % (36.0-47.0) Mean Corpuscular Volume 77 fL (79-100) Mean Corpuscular Hemoglobin 24 pg (25-35) Mean Corpuscular Hemoglobin Concent 31 g/dL (31-37) Red Cell Distribution Width 16.1 % (11.5-14.5) Platelet Count 318 x10^3/uL (140-400) Laboratory Tests Test 04/10/19 17:09 04/10/19 20:42 04/11/19 03:30 04/11/19 07:20 Glucose (Fingerstick) 201 mg/dL (70-99) 96 mg/dL (70-99) 138 mg/dL (70-99) White Blood Count 6.0 x10^3/uL (4.0-11.0) Red Blood Count 3.51 x10^6/uL (3.50-5.40) Hemoglobin 8.4 g/dL (12.0-15.5) Hematocrit 27.0 % (36.0-47.0) Mean Corpuscular Volume 77 fL (79-100) Mean Corpuscular Hemoglobin 24 pg (25-35) Mean Corpuscular Hemoglobin Concent 31 g/dL (31-37) Red Cell Distribution Width 16.4 % (11.5-14.5) Platelet Count 284 x10^3/uL (140-400) Neutrophils (%) (Auto) 41 % (31-73) Lymphocytes (%) (Auto) 46 % (24-48) Monocytes (%) (Auto) 9 % (0-9) Eosinophils (%) (Auto) 4 % (0-3) Basophils (%) (Auto) 1 % (0-3) Neutrophils # (Auto) 2.5 x10^3uL (1.8-7.7) Lymphocytes # (Auto) 2.8 x10^3/uL (1.0-4.8) Monocytes # (Auto) 0.5 x10^3/uL (0.0-1.1) Eosinophils # (Auto) 0.2 x10^3/uL (0.0-0.7) Basophils # (Auto) 0.0 x10^3/uL (0.0-0.2) Sodium Level 140 mmol/L (136-145) Potassium Level 4.5 mmol/L (3.5-5.1) Chloride Level 105 mmol/L (98-107) Carbon Dioxide Level 26 mmol/L (21-32) Anion Gap 9 (6-14) Blood Urea Nitrogen 31 mg/dL (7-20) Creatinine 1.9 mg/dL (0.6-1.0) Estimated GFR (Cockcroft-Gault) 30.9 Glucose Level 214 mg/dL (70-99) Calcium Level 8.7 mg/dL (8.5-10.1) Test 04/11/19 12:00 04/11/19 12:45 Glucose (Fingerstick) 119 mg/dL (70-99) White Blood Count 6.1 x10^3/uL (4.0-11.0) Red Blood Count 3.87 x10^6/uL (3.50-5.40) Hemoglobin 9.3 g/dL (12.0-15.5) Hematocrit 29.7 % (36.0-47.0) Mean Corpuscular Volume 77 fL (79-100) Mean Corpuscular Hemoglobin 24 pg (25-35) Mean Corpuscular Hemoglobin Concent 31 g/dL (31-37) Red Cell Distribution Width 16.1 % (11.5-14.5) Platelet Count 318 x10^3/uL (140-400) Medications Active Scripts Medications Dose Route/Sig Max Daily Dose Days Date Category Ventolin Hfa Inhaler (Albuterol Sulfate) 18 Gm Hfa.aer.ad 2 Puff INH Q4HRS PRN 04/08/19 Reported Amlodipine Besylate 5 Mg Tablet 10 Mg PO DAILY 60 04/07/18 Rx Protonix (Pantoprazole Sodium) 20 Mg Tablet.dr 40 Mg PO DAILY 02/24/18 Reported Plavix (Clopidogrel Bisulfate) 75 Mg Tablet 75 Mg PO DAILY 02/24/18 Reported Benzonatate 200 Mg Capsule 1 Cap PO TID PRN 02/23/18 Reported Alphagan P (Brimonidine Tartrate) 5 Ml Drops 1 Drop RIGHTEYE BID 02/23/18 Reported Voltaren (Diclofenac Sodium) 100 Gm Gel..gram. 100 Gm TP PRN 02/23/18 Reported Ferrous Sulfate 325 Mg Tablet 1 Tab PO DAILY 07/19/17 Rx Acetaminophen 500 Mg Tablet 1,000 Mg PO PRN Q6HRS PRN 07/18/17 Reported Aspir 81 (Aspirin) 81 Mg Tablet.dr 1 Tab PO DAILY 07/18/17 Reported Novolog (Insulin Aspart) 100 Unit/1 Ml Cartridge 16 Unit SQ DAILYWSUP 07/18/17 Reported Novolog (Insulin Aspart) 100 Unit/1 Ml Cartridge 16 Unit SQ DAILYWLUN 07/18/17 Reported Novolog (Insulin Aspart) 100 Unit/1 Ml Cartridge 20 Unit SQ DAILYWBKFT 07/18/17 Reported Levemir (Insulin Detemir) 100 Unit/1 Ml Vial 20 Unit SQ HS 07/18/17 Reported Atorvastatin Calcium 40 Mg Tablet 40 Mg PO HS 07/18/17 Reported Donepezil Hcl 10 Mg Tablet 10 Mg PO HS 05/09/14 Reported Impression . IMPRESSION: 1. Abnormal x-ray, compatible with interstitial edema. 2. Vcbrl-en-evsadhk systolic heart failure. 3. Elevated troponin. 4. Cardiomyopathy with known coronary artery disease and previous stent placement. 5. Chronic kidney disease. Plan . D/W DR Humphries YESTERDAY AGGRESSIVE MED TREATMENT JULIETTE MANN MD April 11, 2019 15:52
--- NOTE | 2019-04-11 16:31 | PDOC ---
CARDIOLOGY PROGRESS NOTE SUBJECTIVE: No acute events overnight. Patient is denying any specific symptoms. She's been working with physical therapy. No syncope, palpitations, orthopnea or PND. She does not have any urinary retention or burning. Renal function has slightly worsened overnight. OBJECTIVE: Vital SIgns: Vital Signs Date Time Temp Pulse Resp B/P (MAP) Pulse Ox O2 Delivery O2 Flow Rate FiO2 04/11/19 15:00 97.5 67 18 127/61 (83) 97 Room Air 97.5 I & O Intake and Output 04/11/19 06:59 Intake Total 950 ml Balance 950 ml Intake Oral 950 ml # Voids 4 Objective: GEN.: No apparent distress. Alert and oriented. HEENT: Head is normocephalic, atraumatic NECK: Supple. LUNGS: Clear to auscultation. HEART: RRR, S1, S2 present. Peripheral pulses intact ABDOMEN: Soft, nontender. Positive bowel sounds. EXTREMITIES: Without any cyanosis. NEUROLOGIC: Normal speech, normal tone PSYCHIATRIC: Normal affect, normal mood. SKIN: No ulcerations CURRENT MEDICATIONS: Continue metoprolol, Imdur, atorvastatin, aspirin, Plavix, amlodipine. DIAGNOSTIC TESTING: Creatinine elevated to 1.9 with a hemoglobin initially decreased with repeat checks reveal stable hemoglobin. ASSESSMENT: 1. Acute on chronic systolic and diastolic heart failure, present on admission 2. 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 Hypertension 4. Dementia 5. Chronic kidney disease 6. Anemia of chronic disease likely PLAN: 1. I had a long discussion with the patient and her daughter. From a blood pressure standpoint and medical therapy she's on excellent medications. She does not have any angina or dyspnea. She's walking with physical therapy. Would monitor one more day given her acute kidney injury overnight which also may be a lab error. If stable overnight would plan for discharge tomorrow. 2. We will have close follow-up with her in the office in the next 2-4 weeks. Thank you for this consultation. ANGELICA SAMPSON MD April 11, 2019 16:31
[2019-04-11 19:00] VITALS: BP 138/58
[2019-04-11] MEDS: INSULIN GLARGINE 300 UNITS/3 ML INSULN.PEN. SQ SCH (21:00)
[2019-04-11] MEDS: ATORVASTATIN CALCIUM 40 MG TABLET. PO SCH (21:00)
[2019-04-11 23:00] VITALS: BP 131/61
[2019-04-12 03:00] VITALS: BP 149/65
[2019-04-12 04:59] LABS: BASO % 1 % (0-3); EOS # 0.2 x10^3/uL (0.0-0.7); EOS % 3 % (0-3); HEMATOCRIT 26.5 % (36.0-47.0); HEMOGLOBIN 8.4 g/dL (12.0-15.5); LYMPH # 2.2 x10^3/uL (1.0-4.8); LYMPH % 40 % (24-48); MEAN CORPUSCULAR HEMOGLOBIN 24 pg (25-35); MEAN CORPUSCULAR HGB CONC 32 g/dL (31-37); MEAN CORPUSCULAR VOLUME 76 fL (79-100); MONO # 0.5 x10^3/uL (0.0-1.1); MONO % 8 % (0-9); NEUT # 2.7 x10^3uL (1.8-7.7); NEUT % 48 % (31-73); PLATELET COUNT 275 x10^3/uL (140-400); RED BLOOD COUNT 3.47 x10^6/uL (3.50-5.40); RED CELL DISTRIBUTION WIDTH 16.2 % (11.5-14.5); WHITE BLOOD COUNT 5.7 x10^3/uL (4.0-11.0)
[2019-04-12 05:30] LABS: CALCIUM 8.4 mg/dL (8.5-10.1); CREATININE 1.7 mg/dL (0.6-1.0); GFR 35.1; POTASSIUM 4.4 mmol/L (3.5-5.1)
[2019-04-12 07:00] VITALS: BP 151/77
[2019-04-12] MEDS: PANTOPRAZOLE 40 MG TABLET.DR. PO SCH (07:56)
[2019-04-12] MEDS: INSULIN LISPRO 300 UNITS/3 ML INSULN.PEN. SQ SCH ×4 (08:00→12:32)
--- NOTE | 2019-04-12 08:18 | NUR ---
FSBS 175, per meal dose and sliding scale, Pt to receive a total of 18 units. Pt's granddaughter at bedside requests that only 10 units be given.
--- NOTE | 2019-04-12 08:37 | PDOC ---
PULMONARY PROGRESS NOTES Subjective NO DISTRESS BETTER SPIRITS TODAY Vitals Vital Signs Date Time Temp Pulse Resp B/P (MAP) Pulse Ox O2 Delivery O2 Flow Rate FiO2 04/12/19 07:00 98.3 77 16 151/77 (101) 98 Room Air 98.3 ROS: No Nausea, No Chest Pain, No Abdominal Pain, No Increase Cough General: Confused Lungs: Crackles Cardiovascular: S1, S2 Abdomen: Soft Neuro Exam: Alert Extremities: No Edema Skin: Warm Labs Laboratory Tests Test 04/10/19 11:19 04/10/19 17:09 04/10/19 20:42 04/11/19 03:30 Glucose (Fingerstick) 221 mg/dL (70-99) 201 mg/dL (70-99) 96 mg/dL (70-99) White Blood Count 6.0 x10^3/uL (4.0-11.0) Red Blood Count 3.51 x10^6/uL (3.50-5.40) Hemoglobin 8.4 g/dL (12.0-15.5) Hematocrit 27.0 % (36.0-47.0) Mean Corpuscular Volume 77 fL (79-100) Mean Corpuscular Hemoglobin 24 pg (25-35) Mean Corpuscular Hemoglobin Concent 31 g/dL (31-37) Red Cell Distribution Width 16.4 % (11.5-14.5) Platelet Count 284 x10^3/uL (140-400) Neutrophils (%) (Auto) 41 % (31-73) Lymphocytes (%) (Auto) 46 % (24-48) Monocytes (%) (Auto) 9 % (0-9) Eosinophils (%) (Auto) 4 % (0-3) Basophils (%) (Auto) 1 % (0-3) Neutrophils # (Auto) 2.5 x10^3uL (1.8-7.7) Lymphocytes # (Auto) 2.8 x10^3/uL (1.0-4.8) Monocytes # (Auto) 0.5 x10^3/uL (0.0-1.1) Eosinophils # (Auto) 0.2 x10^3/uL (0.0-0.7) Basophils # (Auto) 0.0 x10^3/uL (0.0-0.2) Sodium Level 140 mmol/L (136-145) Potassium Level 4.5 mmol/L (3.5-5.1) Chloride Level 105 mmol/L (98-107) Carbon Dioxide Level 26 mmol/L (21-32) Anion Gap 9 (6-14) Blood Urea Nitrogen 31 mg/dL (7-20) Creatinine 1.9 mg/dL (0.6-1.0) Estimated GFR (Cockcroft-Gault) 30.9 Glucose Level 214 mg/dL (70-99) Calcium Level 8.7 mg/dL (8.5-10.1) Test 04/11/19 07:20 04/11/19 12:00 04/11/19 12:45 04/11/19 16:53 Glucose (Fingerstick) 138 mg/dL (70-99) 119 mg/dL (70-99) 134 mg/dL (70-99) White Blood Count 6.1 x10^3/uL (4.0-11.0) Red Blood Count 3.87 x10^6/uL (3.50-5.40) Hemoglobin 9.3 g/dL (12.0-15.5) Hematocrit 29.7 % (36.0-47.0) Mean Corpuscular Volume 77 fL (79-100) Mean Corpuscular Hemoglobin 24 pg (25-35) Mean Corpuscular Hemoglobin Concent 31 g/dL (31-37) Red Cell Distribution Width 16.1 % (11.5-14.5) Platelet Count 318 x10^3/uL (140-400) Test 04/11/19 20:47 04/12/19 03:50 04/12/19 07:33 Glucose (Fingerstick) 136 mg/dL (70-99) 175 mg/dL (70-99) White Blood Count 5.7 x10^3/uL (4.0-11.0) Red Blood Count 3.47 x10^6/uL (3.50-5.40) Hemoglobin 8.4 g/dL (12.0-15.5) Hematocrit 26.5 % (36.0-47.0) Mean Corpuscular Volume 76 fL (79-100) Mean Corpuscular Hemoglobin 24 pg (25-35) Mean Corpuscular Hemoglobin Concent 32 g/dL (31-37) Red Cell Distribution Width 16.2 % (11.5-14.5) Platelet Count 275 x10^3/uL (140-400) Neutrophils (%) (Auto) 48 % (31-73) Lymphocytes (%) (Auto) 40 % (24-48) Monocytes (%) (Auto) 8 % (0-9) Eosinophils (%) (Auto) 3 % (0-3) Basophils (%) (Auto) 1 % (0-3) Neutrophils # (Auto) 2.7 x10^3uL (1.8-7.7) Lymphocytes # (Auto) 2.2 x10^3/uL (1.0-4.8) Monocytes # (Auto) 0.5 x10^3/uL (0.0-1.1) Eosinophils # (Auto) 0.2 x10^3/uL (0.0-0.7) Basophils # (Auto) 0.0 x10^3/uL (0.0-0.2) Sodium Level 141 mmol/L (136-145) Potassium Level 4.4 mmol/L (3.5-5.1) Chloride Level 106 mmol/L (98-107) Carbon Dioxide Level 26 mmol/L (21-32) Anion Gap 9 (6-14) Blood Urea Nitrogen 31 mg/dL (7-20) Creatinine 1.7 mg/dL (0.6-1.0) Estimated GFR (Cockcroft-Gault) 35.1 Glucose Level 250 mg/dL (70-99) Calcium Level 8.4 mg/dL (8.5-10.1) Laboratory Tests Test 04/11/19 12:00 04/11/19 12:45 04/11/19 16:53 04/11/19 20:47 Glucose (Fingerstick) 119 mg/dL (70-99) 134 mg/dL (70-99) 136 mg/dL (70-99) White Blood Count 6.1 x10^3/uL (4.0-11.0) Red Blood Count 3.87 x10^6/uL (3.50-5.40) Hemoglobin 9.3 g/dL (12.0-15.5) Hematocrit 29.7 % (36.0-47.0) Mean Corpuscular Volume 77 fL (79-100) Mean Corpuscular Hemoglobin 24 pg (25-35) Mean Corpuscular Hemoglobin Concent 31 g/dL (31-37) Red Cell Distribution Width 16.1 % (11.5-14.5) Platelet Count 318 x10^3/uL (140-400) Test 04/12/19 03:50 04/12/19 07:33 White Blood Count 5.7 x10^3/uL (4.0-11.0) Red Blood Count 3.47 x10^6/uL (3.50-5.40) Hemoglobin 8.4 g/dL (12.0-15.5) Hematocrit 26.5 % (36.0-47.0) Mean Corpuscular Volume 76 fL (79-100) Mean Corpuscular Hemoglobin 24 pg (25-35) Mean Corpuscular Hemoglobin Concent 32 g/dL (31-37) Red Cell Distribution Width 16.2 % (11.5-14.5) Platelet Count 275 x10^3/uL (140-400) Neutrophils (%) (Auto) 48 % (31-73) Lymphocytes (%) (Auto) 40 % (24-48) Monocytes (%) (Auto) 8 % (0-9) Eosinophils (%) (Auto) 3 % (0-3) Basophils (%) (Auto) 1 % (0-3) Neutrophils # (Auto) 2.7 x10^3uL (1.8-7.7) Lymphocytes # (Auto) 2.2 x10^3/uL (1.0-4.8) Monocytes # (Auto) 0.5 x10^3/uL (0.0-1.1) Eosinophils # (Auto) 0.2 x10^3/uL (0.0-0.7) Basophils # (Auto) 0.0 x10^3/uL (0.0-0.2) Sodium Level 141 mmol/L (136-145) Potassium Level 4.4 mmol/L (3.5-5.1) Chloride Level 106 mmol/L (98-107) Carbon Dioxide Level 26 mmol/L (21-32) Anion Gap 9 (6-14) Blood Urea Nitrogen 31 mg/dL (7-20) Creatinine 1.7 mg/dL (0.6-1.0) Estimated GFR (Cockcroft-Gault) 35.1 Glucose Level 250 mg/dL (70-99) Calcium Level 8.4 mg/dL (8.5-10.1) Glucose (Fingerstick) 175 mg/dL (70-99) Medications Active Scripts Medications Dose Route/Sig Max Daily Dose Days Date Category Ventolin Hfa Inhaler (Albuterol Sulfate) 18 Gm Hfa.aer.ad 2 Puff INH Q4HRS PRN 04/08/19 Reported Amlodipine Besylate 5 Mg Tablet 10 Mg PO DAILY 60 04/07/18 Rx Protonix (Pantoprazole Sodium) 20 Mg Tablet.dr 40 Mg PO DAILY 02/24/18 Reported Plavix (Clopidogrel Bisulfate) 75 Mg Tablet 75 Mg PO DAILY 02/24/18 Reported Benzonatate 200 Mg Capsule 1 Cap PO TID PRN 02/23/18 Reported Alphagan P (Brimonidine Tartrate) 5 Ml Drops 1 Drop RIGHTEYE BID 02/23/18 Reported Voltaren (Diclofenac Sodium) 100 Gm Gel..gram. 100 Gm TP PRN 02/23/18 Reported Ferrous Sulfate 325 Mg Tablet 1 Tab PO DAILY 07/19/17 Rx Acetaminophen 500 Mg Tablet 1,000 Mg PO PRN Q6HRS PRN 07/18/17 Reported Aspir 81 (Aspirin) 81 Mg Tablet.dr 1 Tab PO DAILY 07/18/17 Reported Novolog (Insulin Aspart) 100 Unit/1 Ml Cartridge 16 Unit SQ DAILYWSUP 07/18/17 Reported Novolog (Insulin Aspart) 100 Unit/1 Ml Cartridge 16 Unit SQ DAILYWLUN 07/18/17 Reported Novolog (Insulin Aspart) 100 Unit/1 Ml Cartridge 20 Unit SQ DAILYWBKFT 07/18/17 Reported Levemir (Insulin Detemir) 100 Unit/1 Ml Vial 20 Unit SQ HS 07/18/17 Reported Atorvastatin Calcium 40 Mg Tablet 40 Mg PO HS 07/18/17 Reported Donepezil Hcl 10 Mg Tablet 10 Mg PO HS 05/09/14 Reported Impression . IMPRESSION: 1. Abnormal x-ray, compatible with interstitial edema. 2. [id number] systolic heart failure. 3. Elevated troponin. 4. Cardiomyopathy with known coronary artery disease and previous stent placement. 5. Chronic kidney disease. Plan . D/W DR Humphries YESTERDAY AGGRESSIVE MED TREATMENT JULIETTE MANN MD April 12, 2019 08:37
[2019-04-12] MEDS: amLODIPine BESYLATE 5 MG TABLET PO SCH (09:07)
[2019-04-12] MEDS: FERROUS SULFATE 325 MG TABLET. PO SCH (09:08)
[2019-04-12] MEDS: METOPROLOL SUCC 24HR ER 25 MG TAB.ER.24H. PO SCH (09:08)
[2019-04-12] MEDS: ASPIRIN ENTERIC COATED 81 MG TABLET.DR. PO SCH (09:08)
[2019-04-12] MEDS: ISOSORBIDE MONONITRATE ER 30 MG TAB.ER.24H PO SCH (09:08)
[2019-04-12] MEDS: CLOPIDOGREL BISULFATE 75 MG TABLET PO SCH (09:08)
[2019-04-12] MEDS: hydrALAZINE 25 MG TABLET PO SCH (09:08)
[2019-04-12] MEDS: BRIMONIDINE 0.2% OPHTH SOLUTION 5ML BOTTLE. OD SCH (09:09)
--- NOTE | 2019-04-12 10:51 | PDOC ---
[employer] PROGRESS NOTE Chief Complaint Chief Complaint TRISTON Left arm pain Mildly elevated troponin- likely renal cause CAD Hypercholesterolemia HTN Prior DE s/p cardiac stenting DM II Abnormal chest x-ray History of Present Illness History of Present Illness Patient seen and examined Patient was well appearing and had a pleasant disposition Discussed with daughter Discussed with Nurse Echo revealed EF of 40%, and global L ventricular hypokinesis suggestive of conduction defect Reviewed Pulm note. Creatinine is down to 1.7 we'll probably discharges afternoon Vitals Vitals Vital Signs Date Time Temp Pulse Resp B/P (MAP) Pulse Ox O2 Delivery O2 Flow Rate FiO2 04/12/19 09:08 77 151/77 04/12/19 08:00 Room Air 04/12/19 07:00 98.3 16 98 98.3 Physical Exam General: Alert, Cooperative, No acute distress, Other (Oriented x1) Heart: Regular rate (SR), Normal S1, Normal S2, Other (2/6 systolic murmur to apex) Lungs: Crackles Abdomen: Soft, No tenderness Extremities: No cyanosis, No edema Skin: No breakdown, No significant lesion Labs LABS Laboratory Tests Test 04/11/19 12:00 04/11/19 12:45 04/11/19 16:53 04/11/19 20:47 Glucose (Fingerstick) 119 mg/dL (70-99) 134 mg/dL (70-99) 136 mg/dL (70-99) White Blood Count 6.1 x10^3/uL (4.0-11.0) Red Blood Count 3.87 x10^6/uL (3.50-5.40) Hemoglobin 9.3 g/dL (12.0-15.5) Hematocrit 29.7 % (36.0-47.0) Mean Corpuscular Volume 77 fL (79-100) Mean Corpuscular Hemoglobin 24 pg (25-35) Mean Corpuscular Hemoglobin Concent 31 g/dL (31-37) Red Cell Distribution Width 16.1 % (11.5-14.5) Platelet Count 318 x10^3/uL (140-400) Test 04/12/19 03:50 04/12/19 07:33 White Blood Count 5.7 x10^3/uL (4.0-11.0) Red Blood Count 3.47 x10^6/uL (3.50-5.40) Hemoglobin 8.4 g/dL (12.0-15.5) Hematocrit 26.5 % (36.0-47.0) Mean Corpuscular Volume 76 fL (79-100) Mean Corpuscular Hemoglobin 24 pg (25-35) Mean Corpuscular Hemoglobin Concent 32 g/dL (31-37) Red Cell Distribution Width 16.2 % (11.5-14.5) Platelet Count 275 x10^3/uL (140-400) Neutrophils (%) (Auto) 48 % (31-73) Lymphocytes (%) (Auto) 40 % (24-48) Monocytes (%) (Auto) 8 % (0-9) Eosinophils (%) (Auto) 3 % (0-3) Basophils (%) (Auto) 1 % (0-3) Neutrophils # (Auto) 2.7 x10^3uL (1.8-7.7) Lymphocytes # (Auto) 2.2 x10^3/uL (1.0-4.8) Monocytes # (Auto) 0.5 x10^3/uL (0.0-1.1) Eosinophils # (Auto) 0.2 x10^3/uL (0.0-0.7) Basophils # (Auto) 0.0 x10^3/uL (0.0-0.2) Sodium Level 141 mmol/L (136-145) Potassium Level 4.4 mmol/L (3.5-5.1) Chloride Level 106 mmol/L (98-107) Carbon Dioxide Level 26 mmol/L (21-32) Anion Gap 9 (6-14) Blood Urea Nitrogen 31 mg/dL (7-20) Creatinine 1.7 mg/dL (0.6-1.0) Estimated GFR (Cockcroft-Gault) 35.1 Glucose Level 250 mg/dL (70-99) Calcium Level 8.4 mg/dL (8.5-10.1) Glucose (Fingerstick) 175 mg/dL (70-99) Review of Systems Review of Systems No complaints Assessment and Plan Assessmemt and Plan Problems Medical Problems: (1) Back pain Status: Acute (2) Elevated troponin Status: Acute (3) Shoulder pain Status: Acute TRISTON Left arm pain Mildly elevated troponin- likely renal cause CAD Hypercholesterolemia HTN Prior DE s/p cardiac stenting DM II Abnormal chest x-ray Plan Discharge home see dictation Comment Review of Relevant I have reviewed the following items all (where applicable) has been applied. Labs Laboratory Tests Test 04/10/19 11:19 04/10/19 17:09 04/10/19 20:42 04/11/19 03:30 Glucose (Fingerstick) 221 mg/dL (70-99) 201 mg/dL (70-99) 96 mg/dL (70-99) White Blood Count 6.0 x10^3/uL (4.0-11.0) Red Blood Count 3.51 x10^6/uL (3.50-5.40) Hemoglobin 8.4 g/dL (12.0-15.5) Hematocrit 27.0 % (36.0-47.0) Mean Corpuscular Volume 77 fL (79-100) Mean Corpuscular Hemoglobin 24 pg (25-35) Mean Corpuscular Hemoglobin Concent 31 g/dL (31-37) Red Cell Distribution Width 16.4 % (11.5-14.5) Platelet Count 284 x10^3/uL (140-400) Neutrophils (%) (Auto) 41 % (31-73) Lymphocytes (%) (Auto) 46 % (24-48) Monocytes (%) (Auto) 9 % (0-9) Eosinophils (%) (Auto) 4 % (0-3) Basophils (%) (Auto) 1 % (0-3) Neutrophils # (Auto) 2.5 x10^3uL (1.8-7.7) Lymphocytes # (Auto) 2.8 x10^3/uL (1.0-4.8) Monocytes # (Auto) 0.5 x10^3/uL (0.0-1.1) Eosinophils # (Auto) 0.2 x10^3/uL (0.0-0.7) Basophils # (Auto) 0.0 x10^3/uL (0.0-0.2) Sodium Level 140 mmol/L (136-145) Potassium Level 4.5 mmol/L (3.5-5.1) Chloride Level 105 mmol/L (98-107) Carbon Dioxide Level 26 mmol/L (21-32) Anion Gap 9 (6-14) Blood Urea Nitrogen 31 mg/dL (7-20) Creatinine 1.9 mg/dL (0.6-1.0) Estimated GFR (Cockcroft-Gault) 30.9 Glucose Level 214 mg/dL (70-99) Calcium Level 8.7 mg/dL (8.5-10.1) Test 04/11/19 07:20 04/11/19 12:00 04/11/19 12:45 04/11/19 16:53 Glucose (Fingerstick) 138 mg/dL (70-99) 119 mg/dL (70-99) 134 mg/dL (70-99) White Blood Count 6.1 x10^3/uL (4.0-11.0) Red Blood Count 3.87 x10^6/uL (3.50-5.40) Hemoglobin 9.3 g/dL (12.0-15.5) Hematocrit 29.7 % (36.0-47.0) Mean Corpuscular Volume 77 fL (79-100) Mean Corpuscular Hemoglobin 24 pg (25-35) Mean Corpuscular Hemoglobin Concent 31 g/dL (31-37) Red Cell Distribution Width 16.1 % (11.5-14.5) Platelet Count 318 x10^3/uL (140-400) Test 04/11/19 20:47 04/12/19 03:50 04/12/19 07:33 Glucose (Fingerstick) 136 mg/dL (70-99) 175 mg/dL (70-99) White Blood Count 5.7 x10^3/uL (4.0-11.0) Red Blood Count 3.47 x10^6/uL (3.50-5.40) Hemoglobin 8.4 g/dL (12.0-15.5) Hematocrit 26.5 % (36.0-47.0) Mean Corpuscular Volume 76 fL (79-100) Mean Corpuscular Hemoglobin 24 pg (25-35) Mean Corpuscular Hemoglobin Concent 32 g/dL (31-37) Red Cell Distribution Width 16.2 % (11.5-14.5) Platelet Count 275 x10^3/uL (140-400) Neutrophils (%) (Auto) 48 % (31-73) Lymphocytes (%) (Auto) 40 % (24-48) Monocytes (%) (Auto) 8 % (0-9) Eosinophils (%) (Auto) 3 % (0-3) Basophils (%) (Auto) 1 % (0-3) Neutrophils # (Auto) 2.7 x10^3uL (1.8-7.7) Lymphocytes # (Auto) 2.2 x10^3/uL (1.0-4.8) Monocytes # (Auto) 0.5 x10^3/uL (0.0-1.1) Eosinophils # (Auto) 0.2 x10^3/uL (0.0-0.7) Basophils # (Auto) 0.0 x10^3/uL (0.0-0.2) Sodium Level 141 mmol/L (136-145) Potassium Level 4.4 mmol/L (3.5-5.1) Chloride Level 106 mmol/L (98-107) Carbon Dioxide Level 26 mmol/L (21-32) Anion Gap 9 (6-14) Blood Urea Nitrogen 31 mg/dL (7-20) Creatinine 1.7 mg/dL (0.6-1.0) Estimated GFR (Cockcroft-Gault) 35.1 Glucose Level 250 mg/dL (70-99) Calcium Level 8.4 mg/dL (8.5-10.1) Laboratory Tests Test 04/11/19 12:00 04/11/19 12:45 04/11/19 16:53 04/11/19 20:47 Glucose (Fingerstick) 119 mg/dL (70-99) 134 mg/dL (70-99) 136 mg/dL (70-99) White Blood Count 6.1 x10^3/uL (4.0-11.0) Red Blood Count 3.87 x10^6/uL (3.50-5.40) Hemoglobin 9.3 g/dL (12.0-15.5) Hematocrit 29.7 % (36.0-47.0) Mean Corpuscular Volume 77 fL (79-100) Mean Corpuscular Hemoglobin 24 pg (25-35) Mean Corpuscular Hemoglobin Concent 31 g/dL (31-37) Red Cell Distribution Width 16.1 % (11.5-14.5) Platelet Count 318 x10^3/uL (140-400) Test 04/12/19 03:50 04/12/19 07:33 White Blood Count 5.7 x10^3/uL (4.0-11.0) Red Blood Count 3.47 x10^6/uL (3.50-5.40) Hemoglobin 8.4 g/dL (12.0-15.5) Hematocrit 26.5 % (36.0-47.0) Mean Corpuscular Volume 76 fL (79-100) Mean Corpuscular Hemoglobin 24 pg (25-35) Mean Corpuscular Hemoglobin Concent 32 g/dL (31-37) Red Cell Distribution Width 16.2 % (11.5-14.5) Platelet Count 275 x10^3/uL (140-400) Neutrophils (%) (Auto) 48 % (31-73) Lymphocytes (%) (Auto) 40 % (24-48) Monocytes (%) (Auto) 8 % (0-9) Eosinophils (%) (Auto) 3 % (0-3) Basophils (%) (Auto) 1 % (0-3) Neutrophils # (Auto) 2.7 x10^3uL (1.8-7.7) Lymphocytes # (Auto) 2.2 x10^3/uL (1.0-4.8) Monocytes # (Auto) 0.5 x10^3/uL (0.0-1.1) Eosinophils # (Auto) 0.2 x10^3/uL (0.0-0.7) Basophils # (Auto) 0.0 x10^3/uL (0.0-0.2) Sodium Level 141 mmol/L (136-145) Potassium Level 4.4 mmol/L (3.5-5.1) Chloride Level 106 mmol/L (98-107) Carbon Dioxide Level 26 mmol/L (21-32) Anion Gap 9 (6-14) Blood Urea Nitrogen 31 mg/dL (7-20) Creatinine 1.7 mg/dL (0.6-1.0) Estimated GFR (Cockcroft-Gault) 35.1 Glucose Level 250 mg/dL (70-99) Calcium Level 8.4 mg/dL (8.5-10.1) Glucose (Fingerstick) 175 mg/dL (70-99) Medications Current Medications Aspirin (Children'S Aspirin) 243 mg 1X ONCE PO Last administered on 04/08/19 22:22; Start 04/08/19 at 22:00; Stop 04/08/19 at 22:01; Status DC Sodium Chloride 1,000 ml @ 1,000 mls/hr 1X ONCE IV Last administered on 04/08/19at 22:23; Start 04/08/19 at 22:00; Stop 04/08/19 at 22:59; Status DC Ketorolac Tromethamine (Toradol 15mg Vial) 10 mg 1X ONCE IV Last administered on 04/08/19at 22:23; Start 04/08/19 at 22:00; Stop 04/08/19 at 22:01; Status DC Heparin Sodium (Porcine) (Heparin Sodium) 4,000 unit 1X ONCE IV Last administered on 04/08/19at 23:39; Start 04/08/19 at 23:30; Stop 04/09/19 at 18:22; Status DC Heparin Sodium/ Dextrose 500 ml @ 0 mls/hr CONT PRN IV SEE I/O RECORD Last administered on 04/08/19at 23:40; Start 04/08/19 at 23:15; Stop 04/09/19 at 18:22; Status DC Ondansetron HCl (Zofran) 4 mg PRN Q8HRS PRN IV NAUSEA/VOMITING 1ST CHOICE; Start 04/08/19 at 23:15; Stop 04/09/19 at 23:14; Status DC Fentanyl Citrate (Fentanyl 2ml Vial) 25 mcg PRN Q2HRS PRN IV SEVERE PAIN; Start 04/08/19 at 23:15 Insulin Human Lispro (HumaLOG) 0-5 UNITS TIDWMEALS SQ Last administered on 04/10/19at 17:49; Start 04/09/19 at 08:00 Dextrose (Dextrose 50%-Water Syringe) 12.5 gm PRN Q15MIN PRN IV SEE COMMENTS; Start 04/08/19 at 23:15 Magnesium Sulfate/ Dextrose 100 ml @ 100 mls/hr 1X ONCE IV Last administered on 04/09/19at 12:27; Start 04/09/19 at 09:30; Stop 04/09/19 at 10:29; Status DC Amlodipine Besylate (Norvasc) 10 mg DAILY PO Last administered on 04/12/19at 09:07; Start 04/09/19 at 09:00 Aspirin (Ecotrin) 81 mg DAILY PO Last administered on 04/12/19 09:08; Start 04/09/19 at 09:00 Atorvastatin Calcium (Lipitor) 40 mg HS PO Last administered on 04/11/19at 21:00; Start 04/09/19 at 21:00 Clopidogrel Bisulfate (Plavix) 75 mg DAILY PO Last administered on 04/12/19 09:08; Start 04/09/19 at 09:00 Labetalol HCl (Normodyne Iv Push) 20 mg PRN Q2HR PRN IVP HYPERTENSION, SEE COMMENTS; Start 04/09/19 at 08:45 Info (Anti-Coagulation Monitoring By Pharmacy) 1 each PRN DAILY PRN MC SEE COMMENTS Last administered on 04/09/19 14:26; Start 04/09/19 at 11:30; Stop 04/11/19 at 12:52; Status DC Diclofenac Sodium (Voltaren) 100 roseline PRN BID PRN TP PAIN; Start 04/09/19 at 17:30 Ferrous Sulfate (Feosol) 325 mg DAILY PO Last administered on 04/12/19 09:08; Start 04/10/19 at 09:00 Acetaminophen (Tylenol) 1,000 mg PRN Q6HRS PRN PO MILD PAIN / TEMP Last administered on 04/11/19at 11:32; Start 04/09/19 at 17:45 Albuterol Sulfate (Ventolin Neb Soln) 2.5 mg PRN Q4HRS PRN NEB SHORTNESS OF BREATH Last administered on 04/09/19 20:21; Start 04/09/19 at 17:45 Benzonatate (Tessalon Perle) 100 mg PRN TID PRN PO COUGH; Start 04/09/19 at 2 1:00 Brimonidine Tartrate (Alphagan) 1 drop BID OD Last administered on 04/12/19 09:09; Start 04/09/19 at 21:00 Donepezil HCl (Aricept) 10 mg QHS PO Last administered on 04/09/19 21:30; Start 04/09/19 at 21:00; Stop 04/10/19 at 10:31; Status DC Insulin Human Lispro (HumaLOG) 16 units DAILYWLUN SQ Last administered on 04/10/19at 12:33; Start 04/10/19 at 12:00; Stop 04/10/19 at 17:38; Status DC Insulin Glargine (Lantus) 16 units DAILYWSUP SQ ; Start 04/10/19 at 17:00; Status Cancel Insulin Glargine (Lantus) 20 units DAILYWBKFT SQ ; Start 04/10/19 at 08:00; Stop 04/10/19 at 10:31; Status DC Insulin Glargine (Lantus) 20 units QHS SQ Last administered on 04/11/19at 21:00; Start 04/09/19 at 21:00 Pantoprazole Sodium (Protonix) 40 mg DAILYAC PO Last administered on 04/12/19at 07:56; Start 04/10/19 at 07:30 Insulin Glargine (Lantus) 20 units HS SQ ; Start 04/10/19 at 21:00; Status C ancel Hydralazine HCl (Apresoline) 25 mg BID PO Last administered on 04/12/19at 09:08; Start 04/10/19 at 11:30 Isosorbide Mononitrate (Imdur) 30 mg DAILY PO Last administered on 04/12/19at 09:08; Start 04/10/19 at 11:15 Metoprolol Succinate (Toprol Xl) 25 mg DAILY PO Last administered on 04/12/19 09:08; Start 04/10/19 at 11:15 Insulin Human Lispro (HumaLOG) 16 units TIDBFRMEAL SQ Last administered on 04/12/19at 08:18; Start 04/10/19 at 18:00 Sodium Chloride 500 ml @ 125 mls/hr 1X ONCE IV Last administered on 04/11/19at 12:20; Start 04/11/19 at 11:15; Stop 04/11/19 at 15:14; Status DC Active Scripts Active Amlodipine Besylate 5 Mg Tablet 10 Mg PO DAILY 60 Days Ferrous Sulfate 325 Mg Tablet 1 Tab PO DAILY Reported Ventolin Hfa Inhaler (Albuterol Sulfate) 18 Gm Hfa.aer.ad 2 Puff INH Q4HRS PRN Protonix (Pantoprazole Sodium) 20 Mg Tablet.dr 40 Mg PO DAILY Plavix (Clopidogrel Bisulfate) 75 Mg Tablet 75 Mg PO DAILY Benzonatate 200 Mg Capsule 1 Cap PO TID PRN Alphagan P (Brimonidine Tartrate) 5 Ml Drops 1 Drop RIGHTEYE BID Voltaren (Diclofenac Sodium) 100 Gm Gel..gram. 100 Gm TP PRN Acetaminophen 500 Mg Tablet 1,000 Mg PO PRN Q6HRS PRN Aspir 81 (Aspirin) 81 Mg Tablet. 1 Tab PO DAILY Novolog (Insulin Aspart) 100 Unit/1 Ml Cartridge 16 Unit SQ DAILYWSUP Novolog (Insulin Aspart) 100 Unit/1 Ml Cartridge 16 Unit SQ DAILYWLUN Novolog (Insulin Aspart) 100 Unit/1 Ml Cartridge 20 Unit SQ DAILYWBKFT Levemir (Insulin Detemir) 100 Unit/1 Ml Vial 20 Unit SQ HS Atorvastatin Calcium 40 Mg Tablet 40 Mg PO HS Donepezil Hcl 10 Mg Tablet 10 Mg PO HS Vitals/I & O Vital Sign - Last 24 Hours 04/11/19 04/11/19 04/11/19 04/11/19 11:00 15:00 19:00 19:40 Temp 97.8 97.5 98.0 97.8 97.5 98.0 Pulse 67 67 69 Resp 18 18 18 B/P (MAP) 123/57 (79) 127/61 (83) 138/58 (84) Pulse Ox 93 97 95 O2 Delivery Room Air Room Air Room Air Room Air 04/11/19 04/11/19 04/12/19 04/12/19 21:00 23:00 03:00 07:00 Temp 98.2 98.4 98.3 98.2 98.4 98.3 Pulse 69 72 68 77 Resp 18 18 16 B/P (MAP) 138/58 131/61 (84) 149/65 (93) 151/77 (101) Pulse Ox 96 96 98 O2 Delivery Room Air Room Air Room Air 04/12/19 04/12/19 04/12/19 04/12/19 08:00 09:07 09:08 09:08 Pulse 77 77 77 B/P (MAP) 151/77 151/77 151/77 O2 Delivery Room Air 04/12/19 09:08 Pulse 77 B/P (MAP) 151/77 Intake and Output 04/11/19 04/11/19 04/12/19 15:00 23:00 07:00 Intake Total 360 ml 180 ml Balance 360 ml 180 ml CASTLE,NIAL K III DO April 12, 2019 10:51
[2019-04-12 11:00] VITALS: BP 120/54
--- NOTE | 2019-04-12 12:45 | NUR ---
SS following up with discharge planning. Discharge orders received for home healthcare. SS met with pt and family in room and discussed home healthcare. Pt and family chose [facility], ; fax [phone]. SS phoned and faxed discharge orders and referral to [facility].
--- NOTE | 2019-04-12 13:50 | NUR ---
Pt discharged home with services. By w/c to hospital entrance, accompanied by granddaughter. Discharge information and education provided to Pt and granddaughter, both parties verbalized understanding and had no further questions. No changes from previous assessment. Pt denies any pain or discomfort at discharge, just mild left shoulder discomfort.
--- NOTE | 2019-04-21 10:49 | DS ---
DATE OF DISCHARGE: 04/12/2019 ADMISSION DIAGNOSES: 1. Left arm pain, rule out angina. 2. Elevated troponin. 3. Dementia. DISCHARGE DIAGNOSES: 1. Atypical chest pain. 2. Elevated troponin, probably secondary to chronic renal insufficiency (her creatinine was hovering between 1.6 and 1.7). 3. Known coronary artery disease. 4. Hyperlipidemia. 5. Hypertension. 6. Prior myocardial infarction with previous stenting. 7. Diabetes. 8. Abnormal chest x-ray (We did consult Dr. Strickland. He felt it was probably interstitial edema and recommended diuretics). CONSULTS: Dr. Strickland and Dr. Roth. PROCEDURES: None. HOSPITAL COURSE: The patient is a pleasant elderly female who has dementia and known coronary artery disease with previous stents. Basically, she presented with some vague left arm pain and chest pain. We were concerned she could have recurrent coronary artery disease. She was admitted. We did a full cardiac workup. She also had a little abnormality in her chest x-ray. We did consult Pulmonary as well. We checked serial enzymes, serial EKGs and hydrated her, gave her some Lasix for her pulmonary edema and over the next few days, she seemed to return to her baseline. When I saw her on the day of discharge, her heart tones were normal. Her lungs were clear. She was feeling great. We discharged to home. DISPOSITION: Home. ACTIVITY: As tolerated. DIET: Low sodium. MEDICATIONS: Please see the MRAD. TOTAL TIME: 31 minutes. WILLIAM CASTRO DO DR: TERE/rashmi JOB#: [id number] / [id number]
== END 2019-04-12 13:50 | disposition home health service (06) | DRG 682 ==
LOC: ER 21:02 → 2 NORTH 23:10
PROVIDERS: ADMIT Internal Medicine; ATTEND Internal Medicine
DX: N17.1 Acute kidney failure with acute cortical necrosis (principal); I50.43 Acute on chronic combined systolic (congestive) and diastolic (congestive) heart failure; I13.0 Hypertensive heart and chronic kidney disease with heart failure and stage 1 through stage 4 chronic kidney disease, or unspecified chronic kidney disease; E86.0 Dehydration; E11.22 Type 2 diabetes mellitus with diabetic chronic kidney disease; D63.8 Anemia in other chronic diseases classified elsewhere; I25.5 Ischemic cardiomyopathy; I25.10 Atherosclerotic heart disease of native coronary artery without angina pectoris; F03.90 Unspecified dementia, unspecified severity, without behavioral disturbance, psychotic disturbance, mood disturbance, and anxiety; E78.00 Pure hypercholesterolemia, unspecified; F41.9 Anxiety disorder, unspecified; J40 Bronchitis, not specified as acute or chronic; E78.5 Hyperlipidemia, unspecified; M19.90 Unspecified osteoarthritis, unspecified site; N18.3 Chronic kidney disease, stage 3 (moderate); I16.0 Hypertensive urgency; I25.2 Old myocardial infarction; Z90.710 Acquired absence of both cervix and uterus; Z95.5 Presence of coronary angioplasty implant and graft; Z88.0 Allergy status to penicillin; Z88.8 Allergy status to other drugs, medicaments and biological substances; Z82.49 Family history of ischemic heart disease and other diseases of the circulatory system; Z90.49 Acquired absence of other specified parts of digestive tract
CPT/HCPCS: 36415; 71046; 73030; 80048; 80053; 80061; 81001; 82553; 82962; 83690; 83735; 83880; 84484; 85025; 85027; 85520; 93005; 93306; 94640; 94760; 96361; 96374; J1644; J1815; J1885; J3475; J7030; J7613; 97116; 99285-25